=== PATIENT | female | born 1945 | race Caucasian/White ===

== ENCOUNTER 2023-03-09 15:34 | Emergency (ER) | payer MEDICARE, OTHER, SELFPAY ==
[2023-03-09 15:46] VITALS: BP 153/98
[2023-03-09 15:48] VITALS: BP 153/98
[2023-03-09 16:00] VITALS: BP 121/85
[2023-03-09 16:02] VITALS: BMI 36.2
[2023-03-09 16:34] LABS: % Basophils 0.2 % (0-2); % Immature Granulocytes 0.6 % (0-0.5); % Lymphocytes 15.5 % (20.5-51.1); % Neutrophils 74.7 % (42.2-75.2); Absolute Eosinophils 0.1 10^3/uL (0-0.7); Absolute Lymphocytes 0.8 10^3/uL (1.2-3.4); Absolute Monocytes 0.4 10^3/uL (0.1-0.6); Absolute Neutrophils 3.7 10^3/uL (1.4-6.5); Hemoglobin 11.2 g/dL (12.0-16.0); Mean Corpuscular Hgb 31.3 pg (27.0-31.0); Mean Corpuscular Volume 89.4 fL (81.0-99.0); Mean Platelet Volume 10.2 fL (7.4-10.4); Nucleated Red Blood Cells % 0 %; Platelet Count 199 10^3/uL (130-400); Red Blood Cell Count 3.58 10^6/uL (4.20-5.40); Red Cell Dist. Width 14.6 % (11.5-14.5)
--- NOTE | 2023-03-09 16:42 | ED.GENMED ---
History of Present Illness
General
Chief Complaint: Heart Rate Problem
Source: patient
Exam Limitations: none
Time Seen by Provider: 03/09/23 16:22
Nursing documentation reviewed up to this point in time: agreed with
Travel History
Have you had any contact with someone who has COVID-19?: No
Do you have any symptoms of coronavirus? Fever > 100 degrees, chills, cough, shortness of breath, sore throat, loss of taste or smell, muscle aches, or headache?: No
History of Present Illness
History of Present Illness:
77 yo female presents to the emergency department complaining of rapid heart rate that began about an hour prior to arrival during dialysis. She states Cardizem usually gets her out of the rapid atrial fibrillation. She takes Eliquis.
Past History
Past History
ED Past Medical History: Arrthythmia, CAD, HTN, Hypercholesterolemia, NIDDM, Renal failure and Psychiatric (anxiety)
ED Past Surgical History: Cardiac and Gynecological
Patient has exhibited threatening behavior?: No
PSI?: No
Social History
Tobacco: Former smoker
Alcohol: None
Drug: None
Personal:
Living: with family
Review of Systems
Review of Systems
Allergies reviewed?: Yes
All Other Systems: Not applicable
Constitutional: Reports no symptoms
EENT: Reports no symptoms
Respiratory: Reports no symptoms
Cardiac: Reports palpitations
ABD/GI: Reports no symptoms
: Reports no symptoms
Musculoskeletal: Reports no symptoms
Skin: Reports no symptoms
Neurological: Reports no symptoms
Endocrine: Reports no symptoms
Hematologic/Lymphatic: Reports no symptoms
Psychiatric: Reports no symptoms
Phy Exam
Physical Exam
Physical Exam:
Physical Exam
General: no apparent distress, not acutely ill
Neck: supple. no meningeal signs. normal posterior pharynx
Heart: s1/s2 tachycardia, no murmur. equal radial
pulses.
HEENT: Pupils equal round reactive to light, EOMI
Lungs: no acute respiratory distress. clear bilaterally
Abdomen: normal bowel sounds. not tender. no CVAT
Neuro: alert and oriented. no focal neurological deficits cranial nerves II through XII intact
Skin: no rash
Psychiatric: well kept. interactive and cooperative
Extremities: no edema. no calf tenderness. negative homans. good distal pulses, dialysis fistula left arm
Course
Orders/Labs/Results
Orders:
Orders
03/09/23 15:40
Electrocardiogram (*1) Urgent
Reason for Study: Atrial Fibrillation
03/09/23 16:07
Complete Blood Count/With Diff Urgent
Comprehensive Metabolic Panel Urgent
03/09/23 16:34
Diltiazem 125 mg/125 ml Nss [Cardizem] 125 mg in 125 ml IV NOW
Initial dose in mg/hr, then titrate:: 5
Titrate to keep:: Heart rate 80-100 bpm
Titrate by mg/hr:: 5 mg/hr
Frequency of titrations (minutes):: 15
Maximum dose in mg/hr:: 15
Diltiazem HCl [Cardizem] 5 mg IV NOW STA
03/09/23 16:44
Electrocardiogram (*1) Stat
Reason for Study: Atrial Fibrillation
Electrocardiogram (*1) Urgent
EKG- Treatment ONCE
03/09/23 16:45
Electrocardiogram (*1) Urgent
Reason for Study: Atrial Fibrillation
03/09/23 16:46
EKG- Treatment ONCE
Abnormal Lab Results
03/09/23
16:07
RBC 3.58 L 10^6/uL
(4.20-5.40)
Hgb 11.2 L g/dL
(12.0-16.0)
Hct 32.0 L %
(37.0-47.0)
MCH 31.3 H pg
(27.0-31.0)
RDW 14.6 H %
(11.5-14.5)
Absolute Lymphs (auto) 0.8 L 10^3/uL
(1.2-3.4)
Immature Gran % 0.6 H %
(0-0.5)
Lymphocytes % 15.5 L %
(20.5-51.1)
Sodium 134 L mmol/L
(135-145)
Chloride 91 L mmol/L
(98-107)
Carbon Dioxide 32 H mmol/L
(22-30)
BUN 22 H mg/dl
(7-17)
Creatinine 4.1 H* mg/dL
(0.6-1.0)
Glucose 218 H mg/dl
(70-99)
Total Bilirubin 1.6 H mg/dl
(0.2-1.3)
03/09/23 16:07
03/09/23 16:07
Vital Signs
Initial and Last Documented VS:
Initial Vital Signs
Pulse Resp Pulse Ox
127 16 97
03/09/23 15:45 03/09/23 15:45 03/09/23 15:45
Last Documented Vital Signs
Temp Pulse Resp BP Pulse Ox
98.7 F 81 14 121/85 97
03/09/23 15:48 03/09/23 16:45 03/09/23 16:45 03/09/23 16:00 03/09/23 16:45
MDM/Problems Addressed
Differential Diagnosis Includes:
Rapid atrial fibrillation
MDM/Problems Addressed:
77-year-old female with paroxysmal atrial fibrillation, spontaneously converted in the ED.
Chronic conditions affecting care: Arrhythmia
Acute Exacerbation and/or Progression of Chronic Illness: Arrhythmia
*Pulse Oximetry
Patient hypoxic: no
*EKG
Interpreted by ED Provider?: Yes
EKG Intrepretation Date: 03/09/23
EKG Intrepretation Time: 15:27
Interpretation: abnormal
Comparison EKG: changes noted
Heart Rate: 122
Rate: tachycardiac
Rhythm: a-fib
[place]: normal axis
Interval: normal interval
QRS Pattern: normal QRS
Ischemia: no ischemia
*Merchandise Flow Associate Interpretation
Rate: normal
Interpretation: normal
Heart Rate: 82
Rhythm: sinus
*Critical Care Note
Total Time (30-74mins, 75-104mins- exclusive of procedures): Not Applicable
Data Reviewed
Prescriptions/Medications Considered But Not Given:
Diltiazem ordered, but stopped as patient converted to sinus rhythm.
Patient Management
Social determinants of health affecting care: Strong social support
Escalation/DeEscalation of care consider admission/obs:
Admit not indicated
ED Attending Note
-
Portions of this chart may have been created with voice recognition software.� Occasional wrong word or��sound alike� substitutions may have occurred due to the inherent limitations of voice recognition software.
Discharge Plan
Departure
Patient Disposition: Home (Routine Discharge)
Date of Disposition: 03/09/23
Time of Disposition: 16:58
Patient with high blood pressure during this ER visit?: Yes
Condition: Good
Discharge Problem:
Paroxysmal A-fib, ESRD (end stage renal disease)
Instructions: Atrial Fibrillation (DC), BLOOD PRESSURE
Prescriptions:
No Action
lorazepam 1 MG tablet
1 mg PO DAILY
Patient Comments:
03/09/2023: last filled 03/09/23, 90 tabs for 90 days from [facility]
pantoprazole 40 MG tablet,delayed release (DR/EC)
40 mg PO DAILY
atorvastatin 80 mg Tablet
80 mg PO DAILY@1600 30 Days Qty: 30 0RF
Probiotic 3 billion cell Capsule
3,000 mmu cells PO DAILY
Levemir FlexPen 100 unit/mL (3 mL) Insulin Pen
10 unit SC HS
Patient Comments:
03/09/2023: Pt has had trouble taking her blood sugars and using the insulin pen.
bumetanide 1 mg Tablet
1 mg PO DAILY
sevelamer HCl 800 mg Tablet
800 mg PO MEALS
Eliquis 5 mg Tablet
5 mg PO BID Qty: 60 0RF
hydrocodone-acetaminophen 5-325 mg tablet
1 tab PO Q6H PRN (Reason: moderate pain)
Patient Comments:
03/09/2023: last filled 03/09/23, 30 tabs for 8 days from [facility]
carvedilol 6.25 mg tablet
6.25 mg PO BID
cholecalciferol (vitamin D3) [Vitamin D3] 50 mcg (2,000 unit) Tablet
50 mcg PO DAILY
Referrals:
Miki Mclaughlin MD [Active] - Call in 1-3 days for appt
UNKNOWN - PT DOES,NOT KNOW [Unknown Provider] -
Interventions
Interventions:
*Risk Screen - Suicide Last Done: 03/09/23 15:48
*General Assessment Last Done: 03/09/23 15:48
*Neglect/Abuse Screening Last Done: 03/09/23 16:02
*ED COVID-19 Vaccine History Last Done: 03/09/23 16:03
ED- Cardiac Assessment Last Done: 03/09/23 16:04
ED- Pulmonary Assessment Last Done: 03/09/23 16:04
[2023-03-09 16:46] LABS: ALT (SGPT) 27 U/L (0-35); AST (SGOT) 24 U/L (14-36); Albumin 3.9 g/dl (3.5-5.0); Alkaline Phosphatase 104 U/L (38-126); Blood Urea Nitrogen 22 mg/dl (7-17); Calcium 9.7 mg/dl (8.4-10.2); Carbon Dioxide 32 mmol/L (22-30); Chloride 91 mmol/L (98-107); Estimated Creatinine Clearance 13 ml/min; Glucose 218 mg/dl (70-99); Potassium 4.1 mmol/L (3.5-5.1); Sodium 134 mmol/L (135-145); Total Bilirubin 1.6 mg/dl (0.2-1.3); eGFR 10.74
[2023-03-09 17:00] VITALS: BP 129/57
== END 2023-03-09 17:54 | disposition home or self-care (01) ==
LOC: EMR 15:34
PROVIDERS: EMERGENCY PHYSICIAN Emergency Medicine; FAMILY PHYSICIAN Nurse Practitioner Primary Care
DX: I48.0 Paroxysmal atrial fibrillation (principal); N18.6 End stage renal disease; I12.0 Hypertensive chronic kidney disease with stage 5 chronic kidney disease or end stage renal disease; Z87.891 Personal history of nicotine dependence
CPT/HCPCS: 99284; 80053; 85025; 93005

== ENCOUNTER 2023-03-22 00:55 | Emergency (ER) | payer MEDICARE, OTHER, SELFPAY ==
[2023-03-22 01:00] VITALS: BMI 37.9
[2023-03-22 01:01] VITALS: BP 206/136
[2023-03-22 01:02] VITALS: BP 205/87
[2023-03-22 01:08] VITALS: BP 159/65
[2023-03-22 01:11] LABS: % Eosinophils 3.6 % (0-6); % Immature Granulocytes 0.6 % (0-0.5); % Lymphocytes 22.5 % (20.5-51.1); % Monocytes 7.8 % (1.7-9.3); % Neutrophils 64.5 % (42.2-75.2); Absolute Basophils 0.1 10^3/uL (0-0.2); Absolute Eosinophils 0.2 10^3/uL (0-0.7); Absolute Lymphocytes 1.2 10^3/uL (1.2-3.4); Absolute Monocytes 0.4 10^3/uL (0.1-0.6); Absolute Neutrophils 3.4 10^3/uL (1.4-6.5); Hematocrit 30.7 % (37.0-47.0); Mean Corp Hgb Conc. 35.8 g/dL (33.0-37.0); Mean Corpuscular Hgb 31.5 pg (27.0-31.0); Mean Platelet Volume 10.8 fL (7.4-10.4); Nucleated Red Blood Cells % 0 %; Platelet Count 187 10^3/uL (130-400); Red Blood Cell Count 3.49 10^6/uL (4.20-5.40); Red Cell Dist. Width 15.1 % (11.5-14.5); White Blood Cell Count 5.2 10^3/uL (4.8-10.8)
[2023-03-22 01:12] LABS: Glucose - Point of Care 456 mg/dl (70-99)
[2023-03-22 01:40] LABS: Troponin I 0.019 ng/ml
[2023-03-22 01:42] LABS: ALT (SGPT) 19 U/L (0-35); AST (SGOT) 24 U/L (14-36); Albumin 3.8 g/dl (3.5-5.0); Alkaline Phosphatase 189 U/L (38-126); Blood Urea Nitrogen 27 mg/dl (7-17); Carbon Dioxide 31 mmol/L (22-30); Chloride 94 mmol/L (98-107); Estimated Creatinine Clearance 12 ml/min; Glucose 449 mg/dl (70-99); Potassium 4.2 mmol/L (3.5-5.1); Sodium 132 mmol/L (135-145); Total Bilirubin 1.1 mg/dl (0.2-1.3); eGFR 9.12
[2023-03-22] MEDS: CARDIZEM 125 IV (01:47)
[2023-03-22] MEDS: CARDIZEM 10 MG IV (01:47)
--- NOTE | 2023-03-22 01:49 | ED.GENMED ---
History of Present Illness
General
Chief Complaint: Heart Rate Problem
Source: patient, records and family
Exam Limitations: none
Time Seen by Provider: 03/22/23 01:31
Nursing documentation reviewed up to this point in time: agreed with
Travel History
Have you had any contact with someone who has COVID-19?: No
Do you have any symptoms of coronavirus? Fever > 100 degrees, chills, cough, shortness of breath, sore throat, loss of taste or smell, muscle aches, or headache?: No
History of Present Illness
History of Present Illness:
77-year-old female diabetic A-fib ESRD followed by Dr. Tellez/Alice
Had dialysis today went into A-fib a few hours ago similar in the past, has not been taking her insulin and states she is waiting for her meter to come from Medicare, no fever chills no chest pain does feel fluttering in her chest has refused
cardioversion in the past has been compliant with her Eliquis
Past History
Past History
ED Past Medical History: Arrthythmia, CAD, HTN, Hypercholesterolemia, NIDDM, Renal failure and Psychiatric (anxiety)
ED Past Surgical History: Cardiac and Gynecological
Patient has exhibited threatening behavior?: No
PSI?: No
Social History
Tobacco: Former smoker
Alcohol: None
Drug: None
Personal:
Living: with family
Employment: Not employed
Review of Systems
Review of Systems
All Other Systems: Not applicable
Constitutional: Denies fever or fatigue
EENT: Reports no symptoms
Respiratory: Denies cough or trouble breathing
Cardiac: Reports palpitations
ABD/GI: Reports no symptoms
Musculoskeletal: Reports no symptoms
Hematologic/Lymphatic: Reports no symptoms
Phy Exam
Physical Exam
Physical Exam:
Physical Exam
General: Chronically ill female no acute distress
Neck: No jaundice
Heart: Irregular and rapid
Lungs: No crackles no respiratory
Neuro: alert and oriented. no focal neurological deficits
Skin: no rash
Psychiatric: well kept. interactive and cooperative
Extremities: no edema.
Course
Orders/Labs/Results
Orders:
Orders
03/22/23 00:57
Electrocardiogram (*1) Urgent
Reason for Study: Bradycardia / Tachycardia
Cardiac Monitoring- Treatment ONCE
EKG- Treatment ONCE
03/22/23 00:59
CMP [Comprehensive Metabolic Panel] Urgent
Complete Blood Count/With Diff Urgent
Troponin I Urgent
03/22/23 01:37
Diltiazem HCl [Cardizem] 15 mg IV NOW STA
03/22/23 01:45
Diltiazem 125 mg/125 ml Nss [Cardizem] 125 mg in 125 ml IV PER PROTOCOL
Initial dose in mg/hr, then titrate:: 5
Titrate to keep:: Heart rate 80-100 bpm
Titrate by mg/hr:: 5 mg/hr
Frequency of titrations (minutes):: 15
Maximum dose in mg/hr:: 15
03/22/23 01:56
Apixaban [Eliquis] 5 mg PO NOW STA
03/22/23 02:19
Insulin Detemir Levemir [Levemir] 10 units Subcutaneous Insulin Syringe [Syringe-Insulin] 0 unit SC ONCE
Abnormal Lab Results
03/22/23 03/22/23
00:59 01:05
RBC 3.49 L 10^6/uL
(4.20-5.40)
Hgb 11.0 L g/dL
(12.0-16.0)
Hct 30.7 L %
(37.0-47.0)
MCH 31.5 H pg
(27.0-31.0)
RDW 15.1 H %
(11.5-14.5)
MPV 10.8 H fL
(7.4-10.4)
Immature Gran % 0.6 H %
(0-0.5)
Sodium 132 L mmol/L
(135-145)
Chloride 94 L mmol/L
(98-107)
Carbon Dioxide 31 H mmol/L
(22-30)
BUN 27 H mg/dl
(7-17)
Creatinine 4.7 H* mg/dL
(0.6-1.0)
Glucose 449 H mg/dl
(70-99)
Alkaline Phosphatase 189 H U/L
(38-126)
POC Glucose 456 H* mg/dl
(70-99)
03/22/23 00:59
03/22/23 00:59
Vital Signs
Initial and Last Documented VS:
Initial Vital Signs
Pulse Resp
150 20
03/22/23 01:00 03/22/23 01:00
Last Documented Vital Signs
Pulse Resp BP Pulse Ox
130 16 159/65 93
03/22/23 01:47 03/22/23 01:45 03/22/23 01:47 03/22/23 01:45
MDM/Problems Addressed
Differential Diagnosis Includes:
A-fib electrolyte abnormality no signs of heart failure noncompliant with insulin regimen
MDM/Problems Addressed:
Rapid A-fib hyperglycemia
Chronic conditions affecting care: DM, Arrhythmia and Kidney disease
Acute Exacerbation and/or Progression of Chronic Illness: DM, Arrhythmia and Kidney disease
*Pulse Oximetry
Patient hypoxic: no
*EKG
Interpreted by ED Provider?: Yes
Interpretation: abnormal
Comparison EKG: changes noted
Heart Rate: 150
Rate: tachycardiac
Rhythm: a-fib
Ischemia: non-specific ST changes
*Brake Adjuster Interpretation
Rate: tachycardiac
Interpretation: abnormal
Heart Rate: 150
Rhythm: a-fib
*Critical Care Note
Total Time (30-74mins, 75-104mins- exclusive of procedures): 30
Data Reviewed
Review of Other/Old Records Reveals: Labs and Records
Source: patient, records and spouse
Prescriptions/Medications Considered But Not Given:
DC cardioversion
Further Testing Considered But Not Given:
cxr
Update Note
Update Note:
Update 2:15 AM patient is in A-fib with a rapid ventricular response, claims she has been compliant with her Eliquis, refused cardioversion, though I am suspicious over compliance, blood sugars elevated, states she is prescribed 10 units of Levemir
states she will take she needs to follow-up with her PCP,
In summary I strongly recommended admission to get all these issues worked out she has refused which apparently she has previously
ED Attending Note
-
Portions of this chart may have been created with voice recognition software.� Occasional wrong word or��sound alike� substitutions may have occurred due to the inherent limitations of voice recognition software.
Discharge Plan
Departure
Patient Disposition: Home (Routine Discharge)
Date of Disposition: 03/22/23
Time of Disposition: 02:23
Patient with high blood pressure during this ER visit?: No
Condition: Fair
Discharge Problem:
ESRD (end stage renal disease), Hypertensive chronic kidney disease with stage 5 chronic kidney disease or end stage renal disease, Atrial fibrillation with RVR, Hyperglycemia
Instructions: Atrial Fibrillation (DC), Blood Glucose Monitoring, Diabetes Type 1, Adult (DC)
Prescriptions:
No Action
lorazepam 1 MG tablet
1 mg PO DAILY
Patient Comments:
03/09/2023: last filled 03/09/23, 90 tabs for 90 days from [facility]
pantoprazole 40 MG tablet,delayed release (DR/EC)
40 mg PO DAILY
atorvastatin 80 mg Tablet
80 mg PO DAILY@1600 30 Days Qty: 30 0RF
Probiotic 3 billion cell Capsule
3,000 mmu cells PO DAILY
Levemir FlexPen 100 unit/mL (3 mL) Insulin Pen
10 unit SC HS
Patient Comments:
03/09/2023: Pt has had trouble taking her blood sugars and using the insulin pen.
Rx Instructions:
hasnt used in 3 months
bumetanide 1 mg Tablet
1 mg PO DAILY
sevelamer HCl 800 mg Tablet
800 mg PO MEALS
Eliquis 5 mg Tablet
5 mg PO BID Qty: 60 0RF
hydrocodone-acetaminophen 5-325 mg tablet
1 tab PO Q6H PRN (Reason: moderate pain)
Patient Comments:
03/09/2023: last filled 03/09/23, 30 tabs for 8 days from [facility]
carvedilol 6.25 mg tablet
6.25 mg PO BID
cholecalciferol (vitamin D3) [Vitamin D3] 50 mcg (2,000 unit) Tablet
50 mcg PO DAILY
aspirin 81 mg Tablet
81 mg PO DAILY
Referrals:
Marie Balbuena CRNP [Family Provider] -
Activity Restrictions/Additional Instructions:
Follow-up with your outpatient physicians you are welcome return to the ER at any time
Interventions
Interventions:
*General Assessment Last Done: 03/22/23 01:00
*Neglect/Abuse Screening Last Done: 03/22/23 01:00
*ED COVID-19 Vaccine History Last Done: 03/22/23 01:00
[2023-03-22 02:00] VITALS: BP 107/68
[2023-03-22 02:30] VITALS: BP 141/70
[2023-03-22] MEDS: ELIQUIS 5 MG PO (02:31)
--- NOTE | 2023-03-22 02:37 | EDRN ---
Patients heart rate is still elevated, patient does not want to be admitted to the hospital, Dr. Crow did talk to her about staying and her heart rate and blood sugar level, patient agreed to take insulin before she goes.
[2023-03-22] MEDS: LEVEMIR 0.100000000000000006 UNITS SC (02:39)
== END 2023-03-22 02:30 | disposition home or self-care (01) ==
LOC: EMR 00:55
PROVIDERS: Emergency Medicine; EMERGENCY PHYSICIAN Emergency Medicine; FAMILY PHYSICIAN Nurse Practitioner Primary Care
DX: N18.6 End stage renal disease (principal); I12.0 Hypertensive chronic kidney disease with stage 5 chronic kidney disease or end stage renal disease; I48.91 Unspecified atrial fibrillation; E11.65 Type 2 diabetes mellitus with hyperglycemia; E11.22 Type 2 diabetes mellitus with diabetic chronic kidney disease; Z87.891 Personal history of nicotine dependence
CPT/HCPCS: 99291; 96374; 96372; 80053; 82962; 84484; 85025; 93005

== ENCOUNTER 2023-05-13 17:38 | Inpatient (IN) | payer MEDICARE, OTHER, SELFPAY ==
[2023-05-13] VITALS (11 sets, daily range): BP systolic 102–201; BP diastolic 46–84; PULSE 66–77; BMI 37.5; BMI 36.4
[2023-05-13 12:23] LABS: Glucose - Point of Care 318 mg/dl (70-99)
[2023-05-13 12:40] LABS: % Basophils 0.6 % (0-2); % Eosinophils 1.1 % (0-6); % Immature Granulocytes 0.5 % (0-0.5); % Lymphocytes 14.4 % (20.5-51.1); % Neutrophils 76.4 % (42.2-75.2); Absolute Eosinophils 0.1 10^3/uL (0-0.7); Absolute Lymphocytes 0.9 10^3/uL (1.2-3.4); Absolute Monocytes 0.4 10^3/uL (0.1-0.6); Absolute Neutrophils 4.7 10^3/uL (1.4-6.5); Hematocrit 32.9 % (37.0-47.0); Hemoglobin 11.5 g/dL (12.0-16.0); Mean Corpuscular Hgb 30.9 pg (27.0-31.0); Mean Corpuscular Volume 88.4 fL (81.0-99.0); Mean Platelet Volume 10.2 fL (7.4-10.4); Nucleated Red Blood Cells % 0 %; Platelet Count 191 10^3/uL (130-400); Red Blood Cell Count 3.72 10^6/uL (4.20-5.40); Red Cell Dist. Width 14.5 % (11.5-14.5); White Blood Cell Count 6.2 10^3/uL (4.8-10.8)
[2023-05-13 13:28] LABS: ALT (SGPT) 17 U/L (0-35); AST (SGOT) 21 U/L (14-36); Albumin 4.4 g/dl (3.5-5.0); Alkaline Phosphatase 97 U/L (38-126); Blood Urea Nitrogen 52 mg/dl (7-17); Calcium 10.2 mg/dl (8.4-10.2); Carbon Dioxide 28 mmol/L (22-30); Chloride 90 mmol/L (98-107); Estimated Creatinine Clearance 6 ml/min; Glucose 290 mg/dl (70-99); Magnesium 1.7 mg/dl (1.6-2.3); Potassium 5.6 mmol/L (3.5-5.1); Sodium 130 mmol/L (135-145); Total Bilirubin 1.5 mg/dl (0.2-1.3); Total Protein 7.6 g/dl (6.3-8.2); eGFR 4.35
--- NOTE | 2023-05-13 13:41 | ED.GENMED ---
History of Present Illness
General
Chief Complaint: Weakness
Source: patient
Exam Limitations: none
Time Seen by Provider: 05/13/23 12:37
Nursing documentation reviewed up to this point in time: agreed with
Travel History
Have you had any contact with someone who has COVID-19?: No
Do you have any symptoms of coronavirus? Fever > 100 degrees, chills, cough, shortness of breath, sore throat, loss of taste or smell, muscle aches, or headache?: No
History of Present Illness
History of Present Illness:
Patient with history of end-stage renal disease on hemodialysis (Tuesday, Tuesday, Tuesday), atrial fibrillation on Eliquis, presents to ED secondary to multiple episodes of generalized weakness, which caused her to slump to the ground over the past
24 hours. Denies loss of consciousness. Denies headache. Denies blurred vision. Denies loss of sensation. Denies chest pain or palpitations. Denies recent illness. Denies recent change in medications or diet. Secondary to her fall this
morning, patient did not receive her dialysis. However, patient denies weight gain or shortness of breath. Patient received full dialysis session 2 days ago. Of note, patient states that she had similar symptoms 2 years ago when she was evaluated
and was given diagnosis of TIA.
Past History
Past History
ED Past Medical History: Arrthythmia, CAD, HTN, Hypercholesterolemia, NIDDM, Renal failure and Psychiatric (anxiety)
ED Past Surgical History: Cardiac and Gynecological
Patient has exhibited threatening behavior?: No
PSI?: No
Social History
Tobacco: Former smoker
Alcohol: None
Drug: None
Personal:
Living: with family
Employment: Not employed
Review of Systems
Review of Systems
Allergies reviewed?: Yes
All Other Systems: ROS reviewed and negative except as documented in HPI and ROS
Constitutional: Reports no symptoms
EENT: Reports no symptoms
Respiratory: Reports no symptoms
Cardiac: Reports no symptoms
ABD/GI: Reports no symptoms
: Reports no symptoms
Musculoskeletal: Reports no symptoms
Skin: Reports no symptoms
Neurological: Reports weakness
Phy Exam
Physical Exam
Physical Exam:
Physical Exam
General: no apparent distress, not acutely ill. afebrile
Head: nc/at. eomi
Neck: supple. normal range of motion.
Heart: s1/s2 regular rate and rhythm, no murmur. equal radial pulses.
Lungs: no acute respiratory distress. clear bilaterally
Abdomen: normal bowel sounds. not tender.
Neuro: alert and oriented. no focal neurological deficits. normal speech.
Skin: no rash
Psychiatric: well kept. interactive and cooperative
Extremities: no edema. no calf tenderness.
Course
Orders/Labs/Results
Orders:
Orders
05/13/23 12:16
Electrocardiogram (*1) Urgent
Reason for Study: Fatigue / Weakness
05/13/23 12:20
CT Head W/o Iv Contrast Urgent
Comment:
Reason For Exam: weakness, multiple falls
05/13/23 12:26
CMP [Comprehensive Metabolic Panel] Urgent
Complete Blood Count/With Diff Urgent
Magnesium Urgent
05/13/23 12:45
Add On- LAB Urgent
Tests Added?: magnesium
05/13/23 13:07
Troponin I Urgent
05/13/23 13:36
Orthostatic VS- Treatment ONCE
05/13/23 14:01
Carotid US [US Cerebrovascular] Urgent
Comment:
Reason For Exam: weakness/slurred speech
05/13/23 Dinner
Potassium, 2 Gram
At Your Request: Full Participation
05/13/23 17:23
Admit/Transfer Patient As Directed
Co-Sign Provider:
Level of Care: Inpatient admission
Assign to:: Telemetry
Physician / Group: jennifer
Diagnosis: altered mental status/ambulatory dysfunction
Reason for Telemetry: Arrhythmia
Date to Stop Telemetry: 05/16/23
Time to Stop Telemetry: 11:00
Reason for Hospitalization: altered mental status/ambulatory dysfunction
Expected length of stay greater than two midnights?: Yes
ELOS- Estimated Length of Stay in days: 2
I certify the patient meets the requirements for IP care: Yes
05/13/23 17:24
Code Status As Directed
Resuscitation Status: Full Code
05/13/23 17:27
HydrALAZINE [Apresoline] 5 mg IV Q6HPRN PRN
05/13/23 19:44
Atorvastatin [Lipitor] 80 mg PO QPM
Dextrose 50%-Water [Dextrose 50% Syringe] 12.5 grams IV [id number] PRN
Glucagon [GlucaGen] 1 mg IM PRN PRN
Sevelamer Carbonate [Renvela] 800 mg PO MEALS
05/13/23 19:44
VTE Contraindication Routine
VTE Mechanical Device Contraindication: Medical Contraindication
Pharmocologic Contraindication: Medical Contraindication
Activity As Directed
Activity Level: As Tolerated
Bedside Glucose Monitoring As Directed
Frequency: AC&HS
Comment: Change to q6h if pt on TPN, tube feeding or not eating
Vital Signs As Directed
Frequency: Per unit guidelines
05/13/23 20:00
Apixaban [Eliquis] 5 mg PO BID
Carvedilol [Coreg] 6.25 mg PO BID
05/13/23 22:00
insulin detemir U-100 [Levemir FlexPen] 20 unit SC HS
05/14/23 07:30
Insulin Aspart Corrective Low [Novolog Flexpen-Low Resistance] See Protocol SC AC
05/14/23 07:32
Complete Blood Count/With Diff IN AM
Comprehensive Metabolic Panel IN AM
Glycohemoglobin (HgbA1c) IN AM
05/14/23 08:00
Bumetanide [Bumex] 1 mg PO DAILY
Cholecalciferol (Vitamin D3) [VITAMIN D3 (cholecalciferol)] 50 mcg PO DAILY
Lactobac/Bifidobac [Visbiome] 1 cap PO DAILY
Pantoprazole [Protonix] 40 mg PO DAILY
05/16/23 11:00
DC Protocol for Telemetry ONCE
Abnormal Lab Results
05/13/23 05/13/23
12:16 12:26
RBC 3.72 L 10^6/uL
(4.20-5.40)
Hgb 11.5 L g/dL
(12.0-16.0)
Hct 32.9 L %
(37.0-47.0)
Absolute Lymphs (auto) 0.9 L 10^3/uL
(1.2-3.4)
Neutrophils % 76.4 H %
(42.2-75.2)
Lymphocytes % 14.4 L %
(20.5-51.1)
Sodium 130 L mmol/L
(135-145)
Potassium 5.6 H mmol/L
(3.5-5.1)
Chloride 90 L mmol/L
(98-107)
BUN 52 H mg/dl
(7-17)
Creatinine 8.7 H* mg/dL
(0.6-1.0)
Glucose 290 H mg/dl
(70-99)
Total Bilirubin 1.5 H mg/dl
(0.2-1.3)
POC Glucose 318 H mg/dl
(70-99)
05/13/23 12:26
05/13/23 12:26
Vital Signs
Initial and Last Documented VS:
Initial Vital Signs
Temp Pulse Resp BP Pulse Ox
99.3 F 63 16 187/60 98
05/13/23 12:14 05/13/23 12:14 05/13/23 12:14 05/13/23 12:14 05/13/23 12:14
Last Documented Vital Signs
Temp Pulse Resp BP Pulse Ox
97.8 F 54 18 163/63 98
05/16/23 07:00 05/16/23 07:00 05/16/23 07:00 05/16/23 07:00 05/16/23 07:00
MDM/Problems Addressed
MDM/Problems Addressed:
Patient found to be unstable when standing up during orthostatic vital sign check. In light of the fact the patient has fallen multiple times over the past 24 hours along with mental status change noted by family, patient will be admitted for
further evaluation and treatment. In addition, patient with mildly elevated hyperkalemia, and will require dialysis.
Nephrology () notified via [facility].
*EKG
Interpreted by ED Provider?: Yes
EKG Intrepretation Date: 05/13/23
Heart Rate: 60
Rate: normal
Rhythm: sinus
[place]: normal axis
*Critical Care Note
Total Time (30-74mins, 75-104mins- exclusive of procedures): Not Applicable
ED Attending Note
-
Portions of this chart may have been created with voice recognition software.� Occasional wrong word or��sound alike� substitutions may have occurred due to the inherent limitations of voice recognition software.
Discharge Plan
Departure
Patient Disposition: Admit
Date of Disposition: 05/13/23
Time of Disposition: 16:46
Admit to: Telemetry
Presentation/result/management discussed w/ accepting MD/DO: Hospitalist
Discharge Problem:
Falls, ESRD (end stage renal disease), Weakness
Interventions
Interventions:
*Risk Screen - Suicide Last Done: 05/13/23 20:13
*General Assessment Last Done: 05/13/23 12:14
*Neglect/Abuse Screening Last Done: 05/13/23 19:39
ED- Fall Risk Assessment Last Done: 05/13/23 19:39
*ED COVID-19 Vaccine History Last Done: 05/13/23 12:14
*Nursing Disposition Last Done: 05/13/23 19:40
ED- Cardiac Assessment Last Done: 05/13/23 15:30
ED- Neurological Assessment Last Done: 05/13/23 15:30
ED- Pulmonary Assessment Last Done: 05/13/23 15:30
Discharge Date and Time
Discharge Date/Time: 05/13/23 19:41
[2023-05-13 13:42] LABS: Troponin I < 0.012 ng/ml
--- NOTE | 2023-05-13 17:28 | HPS.HSE ---
Family Physician
-
Family Physician: Marie Balbuena
Chief Complaint
-
weakness
History of Present Illness
77-year-old female past medical history of ESRD on hemodialysis Tuesday, Tuesday, Tuesday, atrial fibrillation on Eliquis, CAD with stents, anemia of chronic disease, type 2 diabetes, hypertension, hyperlipidemia, sarcoidosis, probable cirrhosis,
anxiety, GERD, presenting with multiple falls since yesterday. She has been feeling generally weak and has been falling off the bed and falling off her wheelchair. Today while trying to get into wheelchair to go to dialysis she fell and therefore
was unable to get to dialysis. Daughters have also noticed that patient has been having some altered mental status and expressions are a bit unusual. 2 days ago she had an episode of visually hallucinating a pot of ocasio. Did have some nausea
earlier. No fevers or chills, cough, shortness of breath or chest pain. No vomiting or abdominal pain or diarrhea or urinary symptoms. No headache. She has chronic blurred vision. No recent changes to medications. Patient had a similar episode
2 years ago and was evaluated and diagnosed with TIA prior to being on Eliquis.
Patient has chronic weakness of the left upper extremity due to the AV fistula status post bypass. She has some chronic tingling in her left hand which is stable. Did notice that patient's been more weak in the left hand over the past few days.
Daughter is also noted some intermittent slurring of speech today.
She does not smoke or drink alcohol.
Patient last received full dialysis 2 days ago.
Medical History
Past Medical History
Past Medical History: Reports Other (ESRD on hemodialysis Tuesday, Tuesday, Tuesday, atrial fibrillation on Eliquis, CAD with stents, anemia of chronic disease, type 2 diabetes, hypertension, hyperlipidemia, sarcoidosis, probable cirrhosis, anxiety,
GERD)
Past Surgical History: Reports None
Social History
Tobacco: Non-smoker
Alcohol: None
Drug: None
Family History
Family History: Not pertinent
Allergies / Home Medications
Allergies reflects when Allergies were last updated in [employer].
Home Medications with original date entered in [employer]
Allergy/Medication List:
Allergies
Allergy/AdvReac Type Severity Reaction Status Date / Time
Iodinated Contrast Media Allergy Hives/RASH Verified 05/13/23 12:19
[Iodinated Contrast- Oral
and IV Dye]
Home Medications
lorazepam 1 mg tablet 1 mg PO DAILY anxiety 07/27/21
pantoprazole 40 mg tablet,delayed release 40 mg PO DAILY Gastrointestinal issue 07/27/21
bumetanide 1 mg tablet 1 mg PO DAILY Fluid Retention/Swelling 07/01/22
insulin detemir U-100 100 unit/mL (3 mL) subcutaneous pen (Levemir FlexPen) 20 unit SC HS Diabetes 07/01/22
lactobacillus combination no.4 3 billion cell capsule (Probiotic) 3,000 mmu cells PO DAILY Gastrointestinal Issue 07/01/22
sevelamer HCl 800 mg tablet 800 mg PO MEALS Kidney Disease 07/30/22
apixaban 5 mg tablet (Eliquis) 5 mg PO BID #60 tabs 08/16/22
carvedilol 6.25 mg tablet 6.25 mg PO BID 03/09/23
cholecalciferol (vitamin D3) 50 mcg (2,000 unit) tablet (Vitamin D3) 50 mcg PO DAILY 03/09/23
atorvastatin 80 mg tablet 80 mg PO QPM 05/13/23
gabapentin 100 mg capsule 100 mg PO TID 05/13/23
Review of Systems
-
History Source: Patient
A 12 point ROS was completed and negative except as noted: Yes
Constitutional: Reports No Symptoms
EENT: Reports No Symptoms
Respiratory: Reports No Symptoms
Cardiac: Reports No Symptoms
Abdomen/GI: Reports No Symptoms
: Reports No Symptoms
Musculoskeletal: Reports No Symptoms
Skin: Reports No Symptoms
Neurological: Reports No Symptoms
Endocrine: Reports No Symptoms
Hematologic/Lymphatic: Reports No Symptoms
Psych: Reports No Symptoms
Physical Exam
Vital Signs
Vital Signs
Temp Pulse Resp BP Pulse Ox
99.3 F 60 12 201/65 99
05/13/23 12:14 05/13/23 13:00 05/13/23 13:00 05/13/23 13:00 05/13/23 13:00
Physical Exam
General: Well Developed, Well Nourished and No Apparent Distress
HEENT: NormoCephalic, Moist mucous membranes and Atraumatic
Respiratory: Clear
Cardiac: S1/S2 and Regular Rhythm; No Murmur or Rub
GI: Soft, Non Tender, Non Distended and Normal Bowel Sounds; No Organomegaly
Rectal: Deferred by Provider
Musculoskeletal: No Clubbing, No Cyanosis and No Edema
Skin: No Rash
Neuro: Nonfocal/grossly intact
Laboratory Results
-
05/13/23 12:26
05/13/23 12:26
Laboratory Results
Total Bilirubin 1.5 mg/dl (0.2-1.3) H 05/13/23 12:26
AST 21 U/L (14-36) 05/13/23 12:26
ALT 17 U/L (0-35) 05/13/23 12:26
Alkaline Phosphatase 97 U/L (38-126) 05/13/23 12:26
Troponin I < 0.012 ng/ml 05/13/23 13:07
Data Reviewed
-
Lab Data: Labs Reviewed by me
Old Records: Reviewed
Impression/Plan
-
IMPRESSION:
PLAN:
# Weakness altered mental status/falls suggestive of UTI, possible TIA/CVA
-No focal neurological deficits on examination apart from decreased strength of the left upper extremity which is likely chronic due to complications from fistula
-CT head shows no acute intracranial abnormality
-Carotid ultrasound shows less than 50% bilateral internal carotid artery stenosis
-Check urinalysis
-If urinalysis negative then check MRI brain
-Hold Ativan, gabapentin
# Hypertensive urgency secondary to missed dialysis session today
-As needed hydralazine
#ESRD on hemodialysis M, W, F
# Hyperkalemia secondary to missed dialysis
-Received dialysis 2 days ago
-Continue Bumex
-Continue sevelamer
-Nephrology consulted
Paroxysmal atrial fibrillation
-Continue Eliquis
CAD status post stents
-Continue Coreg
Anemia of chronic disease
-Hemoglobin stable
Hyperglycemia
Type 2 diabetes
-Continue Levemir 20 units
-Insulin sliding scale
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
-Hold gabapentin
Hyperlipidemia
-Continue statin
Sarcoidosis
Probable cirrhosis
Anxiety
-Hold Ativan
GERD
-Continue Protonix
History of small partially calcified right frontal convexity meningioma on imaging
Full code
DVT prophylaxis Eliquis
Renal diet
--- NOTE | 2023-05-13 17:43 | W.CON.NEPH ---
Consultation
-
Date/Time Consultation Requested: 05/13/2023 5:30 PM
Date/Time Consultation Performed: 05/13/2023 5:30 PM
Requesting Provider: Kay
Performing Provider: Nino
Reason for Consultation: ESRD
Medical History
-
Chief Complaint: End-stage renal disease
History of Present Illness:
Patient is a 77-year-old female with a past medical history of end-stage renal disease. She is maintained on dialysis every Tuesday and Tuesday at [facility]. She has a longstanding history of diabetes maintained on insulin
therapy. She is maintained on Eliquis in the setting of her atrial fibrillation. She presented to the emergency room with multiple falls since yesterday . She has been feeling generally weak and has been falling off the bed and falling off her
wheelchair. Today while trying to get into wheelchair to go to dialysis she fell and therefore was unable to get to dialysis. Daughters have also noticed that patient has been having some altered mental status and expressions are a bit unusual. 2
days ago she had an episode of visually hallucinating a pot of ocasio. Did have some nausea earlier. No fevers or chills, cough, shortness of breath or chest pain. No vomiting or abdominal pain or diarrhea or urinary symptoms. No headache. She
has chronic blurred vision. No recent changes to medications. Patient had a similar episode 2 years ago and was evaluated and diagnosed with TIA prior to being on Eliquis.
Patient has chronic weakness of the left upper extremity due to the AV fistula status post bypass. She has some chronic tingling in her left hand which is stable. Did notice that patient's been more weak in the left hand over the past few days.
Daughter is also noted some intermittent slurring of speech today.
Past Medical History
End-stage renal disease
Left upper extremity AV fistula
Diabetes
Hypertension
Hyperphosphatemia
Anemia
Atrial fibrillation
Coronary artery disease with prior stenting
Chronic liver disease
Anxiety
Social History
Tobacco: Non-Smoker
Alcohol: None
Family History
No chronic kidney disease
Allergies / Home Medications
Allergy/AdvReac Type Severity Reaction Status Date / Time
Iodinated Contrast Media Allergy Hives/RASH Verified 05/13/23 12:19
[Iodinated Contrast- Oral
and IV Dye]
�Medication �Instructions �Recorded �Confirmed �Type
lorazepam 1 mg tablet 1 mg PO DAILY anxiety 07/27/21 05/13/23 History
pantoprazole 40 mg tablet,delayed 40 mg PO DAILY Gastrointestinal 07/27/21 05/13/23 History
release issue
bumetanide 1 mg tablet 1 mg PO DAILY Fluid 07/01/22 05/13/23 History
Retention/Swelling
insulin detemir U-100 100 unit/mL 20 unit SC HS Diabetes 07/01/22 05/13/23 History
(3 mL) subcutaneous pen (Levemir
FlexPen)
lactobacillus combination no.4 3 3,000 mmu cells PO DAILY 07/01/22 05/13/23 History
billion cell capsule (Probiotic) Gastrointestinal Issue
sevelamer HCl 800 mg tablet 800 mg PO MEALS Kidney Disease 07/30/22 05/13/23 History
apixaban 5 mg tablet (Eliquis) 5 mg PO BID #60 tabs 08/16/22 05/13/23 Rx
carvedilol 6.25 mg tablet 6.25 mg PO BID 03/09/23 05/13/23 History
cholecalciferol (vitamin D3) 50 50 mcg PO DAILY 03/09/23 05/13/23 History
mcg (2,000 unit) tablet (Vitamin
D3)
atorvastatin 80 mg tablet 80 mg PO QPM 05/13/23 05/13/23 History
gabapentin 100 mg capsule 100 mg PO TID 05/13/23 05/13/23 History
Review of Systems
-
History Source: Patient
All other systems: Negative unless noted
Constitutional: Fatigue
Respiratory: No Symptoms
Cardiac: No Symptoms and Other (Left upper extremity AV fistula)
Abdomen/GI: No Symptoms
: No Symptoms and Other (Still makes urine)
Musculoskeletal: Other (Lower extremity leg weakness)
Skin: No Symptoms
Neurological: Numbness (And lower extremity baseline diabetic neuropathy) and Other (Noted slurring of words her daughter)
Endocrine: No Symptoms
Hematologic/Lymphatic: No Symptoms
Physical Exam
Vital Signs
Vital Signs
Temp Pulse Resp BP Pulse Ox
99.3 F 60 12 201/65 99
05/13/23 12:14 05/13/23 13:00 05/13/23 13:00 05/13/23 13:00 05/13/23 13:00
Lab Results
WBC 6.2 10^3/uL (4.8-10.8) 05/13/23 12:26
RBC 3.72 10^6/uL (4.20-5.40) L 05/13/23 12:26
Hgb 11.5 g/dL (12.0-16.0) L 05/13/23 12:26
Hct 32.9 % (37.0-47.0) L 05/13/23 12:26
Plt Count 191 10^3/uL (130-400) 05/13/23 12:26
Sodium 130 mmol/L (135-145) L 05/13/23 12:26
Potassium 5.6 mmol/L (3.5-5.1) H 05/13/23 12:26
Chloride 90 mmol/L (98-107) L 05/13/23 12:26
Carbon Dioxide 28 mmol/L (22-30) 05/13/23 12:26
BUN 52 mg/dl (7-17) H 05/13/23 12:26
Creatinine 8.7 mg/dL (0.6-1.0) H* 05/13/23 12:
eGFR 4.35 05/13/23 12:26
Glucose 290 mg/dl (70-99) H 05/13/23 12:26
Calcium 10.2 mg/dl (8.4-10.2) 05/13/23 12:
Albumin 4.4 g/dl (3.5-5.0) 05/13/23 12:26
Physical Exam
General: AOx3, No Distress and Nontoxic
HEENT: PERRL, EOMI, Anicteric, Conjunctivae Clear, Ear/Nose Intact, Hearing Normal, Oropharynx Clear/Moist, Facial Symmetry, Neck Supple, Trachea Midline and No Thyromegaly
Respiratory: Clear
Cardiac: S1/S2, Regular Rate/Rhythm and Other (Left upper extremity AV fistula in the antecubital fossa with good thrill and bruit)
Breast: Deferred by me
Abdomen: Soft, Nontender, Nondistended, Normal Bowel Sounds and No Hepatosplenomegaly
Genito-urinary: No Costovertebral Tender
Musculoskeletal: No Clubbing, No Cyanosis and No Edema
Skin: No Rash
Neuro: Nonfocal/Grossly Intact, CN II-XII (Intact), Strength (5 out of 5 in both upper and lower extremity) and Other (Decreased neurosensory in lower extremities along plantar aspects of feet)
Hematologic/Lymphatic: No Cervical Lymphadenopathy, No Submandibular Lymphadenopathy and No Supraclavicular Lymphadenopathy
Psych: Mood/afflect pleasant, Insight/judgement good and Appropriate
Assessment/Plan
-
Impression:
Change of mental status/falls
End-stage renal disease Tuesday
Hypertension
Left upper extremity AV
Coronary artery disease with prior history of stent
Hyperkalemia
Diabetes
Atrial fibrillation
Plan:
-Dialysis tomorrow, orders provided
-1500 cc fluid restriction low-sodium low potassium diet
-Workup for change in mental status should include infectious etiology with pancultures as well as possible need for MRI of head
-Maintain phosphate binders with meals for hyperphosphatemia
-SARAH therapy provided for anemia
-Maintain current antihypertensives and titrate as necessary for hypertension
-Will closely monitor hypertension as there could be concern for hypertensive encephalopathy
Data Reviewed
-
CT Scan: Report Reviewed by me (CAT scan reveals no acute intracranial abnormality)
Medical Tests (Nuc Med, Echo etc): Other (EKG personally reviewed sinus rhythm)
Labs: Labs Reviewed by me (Reviewed CBC BMP)
Old Records: Reviewed (Reviewed old records and electronic medical record from hospitalization in September 2022: nephrology consult for ESRD)
[2023-05-13 21:39] LABS: Glucose - Point of Care 269 mg/dl (70-99)
[2023-05-13] MEDS: LIPITOR 80 MG PO (23:23)
[2023-05-13] MEDS: ELIQUIS 5 MG PO (23:24)
[2023-05-13] MEDS: COREG 6.25 MG PO (23:24)
[2023-05-13] MEDS: LEVEMIR 0.200000000000000011 UNITS SC (23:25)
[2023-05-13] MEDS: RENVELA 800 MG PO (23:26)
[2023-05-14] VITALS (9 sets, daily range): BP systolic 105–185; BP diastolic 44–71; PULSE 59; BMI 36.8
[2023-05-14 07:55] LABS: Glucose - Point of Care 250 mg/dl (70-99)
[2023-05-14 08:09] LABS: % Basophils 0.4 % (0-2); % Eosinophils 2.5 % (0-6); % Immature Granulocytes 0.4 % (0-0.5); % Lymphocytes 21.4 % (20.5-51.1); % Neutrophils 66.3 % (42.2-75.2); Absolute Eosinophils 0.1 10^3/uL (0-0.7); Absolute Lymphocytes 1.1 10^3/uL (1.2-3.4); Absolute Monocytes 0.5 10^3/uL (0.1-0.6); Absolute Neutrophils 3.5 10^3/uL (1.4-6.5); Hematocrit 29.2 % (37.0-47.0); Hemoglobin 10.6 g/dL (12.0-16.0); Mean Corp Hgb Conc. 36.3 g/dL (33.0-37.0); Mean Corpuscular Hgb 31.5 pg (27.0-31.0); Mean Corpuscular Volume 86.9 fL (81.0-99.0); Mean Platelet Volume 10.1 fL (7.4-10.4); Nucleated Red Blood Cells % 0 %; Platelet Count 179 10^3/uL (130-400); Red Blood Cell Count 3.36 10^6/uL (4.20-5.40); Red Cell Dist. Width 14.4 % (11.5-14.5); White Blood Cell Count 5.2 10^3/uL (4.8-10.8)
[2023-05-14 08:32] LABS: ALT (SGPT) 15 U/L (0-35); AST (SGOT) 18 U/L (14-36); Alkaline Phosphatase 81 U/L (38-126); Blood Urea Nitrogen 61 mg/dl (7-17); Calcium 9.7 mg/dl (8.4-10.2); Carbon Dioxide 27 mmol/L (22-30); Chloride 92 mmol/L (98-107); Estimated Creatinine Clearance 5 ml/min; Glucose 237 mg/dl (70-99); Potassium 5.2 mmol/L (3.5-5.1); Sodium 128 mmol/L (135-145); Total Bilirubin 1.3 mg/dl (0.2-1.3); Total Protein 6.9 g/dl (6.3-8.2); eGFR 3.64
[2023-05-14] MEDS: MANNITOL 12.5 GRAMS IV (09:30)
--- NOTE | 2023-05-14 09:49 | W.PN.HOSP.TC ---
Addendum entered and electronically signed by Renu Woodson MD 05/14/23 10:22:
# IDDM
increase Lantus from 20 to 30 units HS
Add aspart 10 units AC
Original Note:
Today's Communication/Plan
-
see A/P
Assessment / Plan
Assessment / Plan
HPI: 77-year-old female past medical history of ESRD on hemodialysis Tuesday, Tuesday, Tuesday, atrial fibrillation on Eliquis, CAD with stents, anemia of chronic disease, type 2 diabetes, hypertension, hyperlipidemia, sarcoidosis, probable
cirrhosis, anxiety, GERD, presented with multiple falls and generalized weakness.
She has been falling off the bed and falling off her wheelchair. On DOA, while trying to get into wheelchair to go to dialysis she fell and therefore was unable to get to dialysis. Daughters have also noticed that patient has been having some
altered mental status and expressions are a bit unusual.
2 days PIPE BOWL PAINT TRIMMER, she had an episode of visually hallucinating a pot of ocasio. She has chronic blurred vision. No recent changes to medications. Patient had a similar episode 2 years ago and was evaluated and diagnosed with TIA prior to being on Eliquis.
Patient has chronic weakness of the left upper extremity due to the AV fistula status post bypass. She has some chronic tingling in her left hand which is stable. Did notice that patient's been more weak in the left hand over the past few days.
Daughter is also noted some intermittent slurring of speech.
A/P:
# Generalized weakness with altered mental status and mechanical fall; possibly related to UTI vs TIA/CVA
No focal neurological deficits on examination apart from decreased strength of the left upper extremity which is likely chronic due to complications from fistula
CT head shows no acute intracranial abnormality
Carotid ultrasound shows less than 50% bilateral internal carotid artery stenosis
Check urinalysis if able to collect (pt is on HD)
Follow blood culture
Hold PIPE BOWL PAINT TRIMMER Ativan, gabapentin
Check MRI brain (daughter states that pt is worse today, she is taking more time to respond to questions)
Eventual PT OT when able
# Hypertensive urgency secondary to missed dialysis session on DOA
Cont PIPE BOWL PAINT TRIMMER Coreg
IV hydralazine PRN for SBP > 180
# ESRD on hemodialysis M, W, F
# Mild Hyperkalemia secondary to missed dialysis
# Acute on chronic hyponatremia
Renal on board for HD need
Continue Bumex
Continue sevelamer
# Paroxysmal atrial fibrillation
# CAD status post stents
Continue Coreg
Continue Eliquis
# Anemia of chronic disease
Hemoglobin stable
# Hyperglycemia
# Type 2 diabetes
Continue Levemir 20 units
Insulin sliding scale
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
Hold gabapentin
# Hyperlipidemia
Continue statin
# Sarcoidosis
# Probable cirrhosis
# Anxiety
Hold Ativan
# GERD
Continue Protonix
# History of small partially calcified right frontal convexity meningioma on imaging
Full code
DVT prophylaxis Eliquis
Renal diet
DW and daughter on the phone
total time spent 51 min
Anticipated Discharge: 24 - 48 hours
Subjective/Interval History
-
Date of Service: May 14, 2023
Objective Data
-
Labs:
Laboratory Results
05/14/23
07:32
WBC 5.2
Hgb 10.6 L
Hct 29.2 L
Plt Count 179
Sodium 128 L
Potassium 5.2 H
Chloride 92 L
Carbon Dioxide 27
BUN 61 H
Creatinine 10.1 H*
Glucose 237 H
Calcium 9.7
Total Bilirubin 1.3
AST 18
ALT 15
Alkaline Phosphatase 81
Vital Signs:
Vital Signs
Temp Pulse Resp BP Pulse Ox
37.3 C 69 17 185/71 96
05/14/23 07:45 05/14/23 07:45 05/14/23 07:45 05/14/23 07:45 05/14/23 07:45
I&O
05/13/23 05/14/23 05/15/23
06:59 06:59 06:59
Intake Total 200 / 200
Balance 200 / 200
Review of Systems
-
Constitutional: Reports Weakness and Other (frequent falls )
Physical Exam
-
General: Well Developed, Well Nourished, No Apparent Distress, Comfortable, Conversant (slow to respond), Appears Chronically Ill and Obese
HEENT: Normocephalic, Atraumatic and Moist Mucous Membranes
Respiratory: Clear to Auscultation and Non Labored Respirations; Negative Accessory Resp Muscle Use
Cardiac: Regular Rhythm and S1/S2; Negative Murmur, Rub or Gallop
GI: Soft, Nontender, Nondistended and Normal Bowel Sounds; Negative Organomegaly
Rectal: Deferred by Provider
Musculoskeletal: No Clubbing, No Cyanosis and No Edema
Skin: Negative Rash
Neuro: Awake and Alert
Psych: Calm and Intact Judgement/Insight (somewhat)
Data Reviewed
-
CT Scan: Report Reviewed by me, Discussed with Patient and Discussed with Family
Ultrasound: Report Reviewed by me
Labs: Labs Reviewed by me
--- NOTE | 2023-05-14 11:03 | W.PN.NEPH.HD ---
Assessment
-
pt seen during HD
vitals stable, BP decreases into HD
for MRI today
AVF functions well
MS not baseline
renal diet and FR 40 ounce/day
Progress Note - Hemodialysis
-
Date of Service: May 14, 2023
Duration: 30 minutes and 3 hours
Potassium Bath: 2
Calcium Bath: 2.5
Opti-Dialyzer: 160
Ultrafiltration: Other (2kg)
Blood Flow: 400
Dialysate Flow: 600
Heparin: no
EPO: no
[2023-05-14 11:05] LABS: Glycohemoglobin (HgbA1c) 10.2 % (4.0-5.6)
[2023-05-14 11:18] LABS: Glucose - Point of Care 143 mg/dl (70-99)
[2023-05-14] MEDS: RENVELA PO (11:25)
[2023-05-14] MEDS: NOVOLOG FLEXPEN-LOW RESISTANCE SC ×2 (11:25→11:45)
[2023-05-14] MEDS: BUMEX 1 MG PO (11:36)
[2023-05-14] MEDS: VISBIOME 1 CAP PO (11:36)
[2023-05-14] MEDS: ELIQUIS 5 MG PO ×2 (11:36→21:29)
[2023-05-14] MEDS: RENVELA 800 MG PO ×2 (11:36→18:01)
[2023-05-14] MEDS: VITAMIN D3 (cholecalciferol) 50 MCG PO (11:37)
[2023-05-14] MEDS: PROTONIX 40 MG PO (11:37)
[2023-05-14] MEDS: COREG 6.25 MG PO ×2 (11:37→21:29)
[2023-05-14] MEDS: NOVOLOG FLEXPEN 10 UNITS SC ×2 (11:44→17:54)
[2023-05-14 15:53] LABS: Glucose - Point of Care 165 mg/dl (70-99)
[2023-05-14 17:31] LABS: Urine Albumin 3+ (Neg - Trace); Urine Bilirubin Negative (Negative); Urine Character Clear (Clear); Urine Color Yellow; Urine Glucose 3+ (Negative); Urine Ketone Negative (Negative); Urine Leukocyte Negative (Negative); Urine Nitrite Negative (Negative); Urine Occult Blood Negative (Negative); Urine Urobilinogen Negative (Neg - 1+)
[2023-05-14 17:49] LABS: Urine Bacteria Few (Negative); Urine Red Blood Cell 0-2 /HPF (0-2); Urine Squamous Cell 0-2 /LPF (Few); Urine White Cell 0-2 /HPF (0-5)
[2023-05-14] MEDS: LIPITOR 80 MG PO (18:01)
[2023-05-14] MEDS: NOVOLOG FLEXPEN-LOW RESISTANCE 1 UNITS SC (18:02)
--- NOTE | 2023-05-14 19:36 | PTCARENOTE ---
Pt vomited very small amount while eating her dinner around 1700, large bites were being taken as well, no aspiration noted. Drank marylin gordo after with no difficulties.
[2023-05-14] MEDS: TYLENOL 650 MG PO (21:28)
--- NOTE | 2023-05-14 21:45 | PTCARENOTE ---
@213;Received telephone call from pt's daughter Miriam. Miriam appears to sound agitated,raising her voice, while talking on phone. Miriam stated;'My dad been waiting 9 hours for Tylenol.I know my mother isn't right and no one is telling me what is wrong
with her.My sister was trying to find out what is going on with my mom,she is not on the list which I gave the information and we have a lot going on'.Instructed Miriam that B[employer]SECUR[employer] OFFICER was notified,Tylenol was ordered and pt did received it.Miriam then
stated,'No one calls me and how am I suppose to get the information?' Instructed Miriam,that Abla name is on the emergency call list.Instructed Miriam that it is helpful to have one family member in charge of getting and passing pt's information to
other family members.Instructed Miriam that she could come in tomorrow at 0800 and wait for the doctor to come to discuss her mother's care.Instructed Miriam that there is no time notification of the doctor's arrival but you can wait in room.Miriam
stated,'I'll be there'. Miriam had no more questions and appeared to be satisfied with this RN answers.
[2023-05-14 22:04] LABS: Glucose - Point of Care 111 mg/dl (70-99)
[2023-05-14] MEDS: LEVEMIR 0.299999999999999989 UNITS SC (23:49)
[2023-05-15] VITALS (7 sets, daily range): BP systolic 123–166; BP diastolic 56–64; BMI 36.2
[2023-05-15 02:08] LABS: Glucose - Point of Care 132 mg/dl (70-99)
[2023-05-15] MEDS: APRESOLINE 10 MG IV (02:25)
[2023-05-15] MEDS: FLUSH (NSS) 2 FLUSH IV (02:27)
[2023-05-15] MEDS: VITAMIN D3 (cholecalciferol) 50 MCG PO (07:40)
[2023-05-15] MEDS: ELIQUIS 5 MG PO ×2 (07:40→19:41)
[2023-05-15] MEDS: RENVELA 800 MG PO ×3 (07:40→16:11)
[2023-05-15] MEDS: BUMEX 1 MG PO (07:40)
[2023-05-15] MEDS: PROTONIX 40 MG PO (07:40)
[2023-05-15] MEDS: COREG 6.25 MG PO ×2 (07:41→19:41)
[2023-05-15] MEDS: VISBIOME 1 CAP PO (07:41)
[2023-05-15] MEDS: NOVOLOG FLEXPEN 10 UNITS SC ×3 (07:43→16:11)
[2023-05-15 07:44] LABS: Hematocrit 29.9 % (37.0-47.0); Hemoglobin 10.4 g/dL (12.0-16.0); Mean Corp Hgb Conc. 34.8 g/dL (33.0-37.0); Mean Corpuscular Hgb 30.4 pg (27.0-31.0); Mean Corpuscular Volume 87.4 fL (81.0-99.0); Mean Platelet Volume 10.2 fL (7.4-10.4); Platelet Count 181 10^3/uL (130-400); Red Blood Cell Count 3.42 10^6/uL (4.20-5.40); Red Cell Dist. Width 14.5 % (11.5-14.5)
[2023-05-15] MEDS: NOVOLOG FLEXPEN-LOW RESISTANCE SC ×2 (07:44→11:51)
[2023-05-15 07:45] LABS: Glucose - Point of Care 132 mg/dl (70-99)
[2023-05-15 08:25] LABS: Blood Urea Nitrogen 39 mg/dl (7-17); Calcium 9.4 mg/dl (8.4-10.2); Chloride 92 mmol/L (98-107); Estimated Creatinine Clearance 8 ml/min; Glucose 128 mg/dl (70-99); Magnesium 1.7 mg/dl (1.6-2.3); Potassium 4.1 mmol/L (3.5-5.1); Sodium 130 mmol/L (135-145); eGFR 5.56
[2023-05-15 08:39] LABS: Carbon Dioxide 27 mmol/L (22-30)
--- NOTE | 2023-05-15 09:53 | W.PN.HOSP.TC ---
Today's Communication/Plan
-
see A/P
bold for today
Assessment / Plan
Assessment / Plan
HPI: 77-year-old female past medical history of ESRD on hemodialysis Tuesday, Tuesday, Tuesday, atrial fibrillation on Eliquis, CAD with stents, anemia of chronic disease, type 2 diabetes, hypertension, hyperlipidemia, sarcoidosis, probable
cirrhosis, anxiety, GERD, presented with multiple falls and generalized weakness.
She has been falling off the bed and falling off her wheelchair. On DOA, while trying to get into wheelchair to go to dialysis she fell and therefore was unable to get to dialysis. Daughters have also noticed that patient has been having some
altered mental status and expressions are a bit unusual.
2 days AEROSPACE MANAGER, she had an episode of visually hallucinating a pot of ocasio. She has chronic blurred vision. No recent changes to medications. Patient had a similar episode 2 years ago and was evaluated and diagnosed with TIA prior to being on Eliquis.
Patient has chronic weakness of the left upper extremity due to the AV fistula status post bypass. She has some chronic tingling in her left hand which is stable. Did notice that patient's been more weak in the left hand over the past few days.
Daughter is also noted some intermittent slurring of speech.
A/P:
# Generalized weakness with altered mental status and mechanical fall; unclear cause, acute stroke was ruled out on MRI
# Slurred speech
No focal neurological deficits on examination apart from decreased strength of the left upper extremity which is likely chronic due to complications from fistula
CT head shows no acute intracranial abnormality
Carotid ultrasound shows less than 50% bilateral internal carotid artery stenosis
urinalysis with few bacteriuria, since pt c/o urinary frequency can start empiric ceftriaxone to cover for UTI (daughters would like this)
blood cultures negative
Hold AEROSPACE MANAGER Ativan, gabapentin
MRI brain negative for acute stroke but noted white matter disease of frontal and parietal lobes which is likely chronic
PT OT recc SNF
change to purred diet for now and SPL eval for current slurred speech/ diet recc
Family would appreciate neuro CS for eval of her change in MS
# Hypertensive urgency secondary to missed dialysis session on DOA
Cont AEROSPACE MANAGER Coreg
IV hydralazine PRN for SBP > 180
BP now better
# ESRD on hemodialysis M, W, F
# Mild Hyperkalemia secondary to missed dialysis, resolved
# Acute on chronic hyponatremia
Renal on board for HD need
Continue Bumex
Continue sevelamer
# Paroxysmal atrial fibrillation
# CAD status post stents
Continue Coreg
Continue Eliquis
# Anemia of chronic disease
Hemoglobin stable
# IDDM
# Hyperglycemia on admission
Increased AEROSPACE MANAGER Levemir to 30 units HS, added Aspart 10 units AC - daughters informed of this change
A1C 10.2 %
Insulin sliding scale
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
Hold gabapentin
# Hyperlipidemia
Continue statin
# Sarcoidosis
# Probable cirrhosis
# Anxiety
Hold Ativan
# GERD
Continue Protonix
# History of frontal meningioma on imaging, stable
Full code
DVT prophylaxis Eliquis
Renal diet
DW daughters at bedside
total time spent > 51 min
Anticipated Discharge: 24 - 48 hours
Subjective/Interval History
-
Date of Service: May 15, 2023
Objective Data
-
Labs:
Laboratory Results
05/15/23
06:34
WBC 5.0
Hgb 10.4 L
Hct 29.9 L
Plt Count 181
Sodium 130 L
Potassium 4.1
Chloride 92 L
Carbon Dioxide 27
BUN 39 H
Creatinine 7.1 H*
Glucose 128 H
Calcium 9.4
Vital Signs:
Vital Signs
Temp Pulse Resp BP Pulse Ox
36.7 C 61 18 132/57 97
05/15/23 07:00 05/15/23 07:00 05/15/23 07:00 05/15/23 07:00 05/15/23 07:00
I&O
05/14/23 05/15/23 05/16/23
06:59 06:59 06:59
Intake Total 200 / 200
Output Total 350 / 350
Balance 200 / 200 -350 / -350
Review of Systems
-
Constitutional: Reports Weakness and Other (frequent falls )
Physical Exam
-
General: Well Developed, Well Nourished, No Apparent Distress, Comfortable, Conversant (slow to respond), Appears Chronically Ill and Obese
HEENT: Normocephalic, Atraumatic and Moist Mucous Membranes
Respiratory: Clear to Auscultation and Non Labored Respirations; Negative Accessory Resp Muscle Use
Cardiac: Regular Rhythm and S1/S2; Negative Murmur, Rub or Gallop
GI: Soft, Nontender, Nondistended and Normal Bowel Sounds; Negative Organomegaly
Rectal: Deferred by Provider
Musculoskeletal: No Clubbing, No Cyanosis and No Edema
Skin: Negative Rash
Neuro: Awake and Alert
Psych: Calm and Intact Judgement/Insight (somewhat)
Data Reviewed
-
CT Scan: Report Reviewed by me, Discussed with Patient and Discussed with Family
Ultrasound: Report Reviewed by me
MRI: Report Reviewed by me and Discussed with Family
Labs: Labs Reviewed by me
--- NOTE | 2023-05-15 10:37 | CON.NEURO ---
Neuro Assessment/Plan
Assessment
MRI of brain findings included white matter ischemic disease as well as 1.5 cm MENINGIOMA superior to the right frontal lobe causing mild mass effect which appears unchanged.
Abrupt onset of worsening gait and speech change
Differential diagnosis includes MRI nonvisualized acute ischemic stroke, metabolic disturbance, mass effect from right frontal presumed meningioma
Additionally, the patient's ongoing difficulties may also represent blood pressure variations
Plan
Check blood work for additional metabolic abnormalities
Provide thiamine although unlikely the patient is thiamine deficient as a cause for symptomatology currently
Outpatient neurosurgical evaluation due to possibility that the patient's small right frontal meningioma is producing symptomatology involving the left upper extremity as well as current speech difficulty
Check orthostatics
Will follow.
Consultation
Order
Date of Consultation: 05/15/23
Requesting Provider: Hospitalists
Reason for Consult: Speech change
Subjective/Objective
Subjective Data
Date of Service: May 15, 2023
R-handed
'My knees give out,' with walking.
2 days prior to admission, she had an episode of visually hallucinating a pot of ocasio.
She presented to the emergency room with multiple falls and a problem with speech since yesterday. She has been feeling generally weak and has been falling off the bed and falling off her wheelchair. On the day of admission, while trying to get into
wheelchair to go to dialysis she fell and therefore missed dialysis. Did notice that patient's been more weak in the left hand over the past few days.
Daughters have also noticed that patient has been having some altered mental status according to the chart, not confirmed by the patient. Did have some nausea earlier. Daughter is also noted some intermittent slurring of speech.
No recent changes to medications. Patient had a similar episode 2 years ago and was evaluated as below.
Patient has chronic weakness of the left upper extremity due to the AV fistula status post bypass. She has some chronic tingling in her left hand which is stable. No known modifying factors. No known other additional associated symptoms.
Adapted from a combination of my esteemed colleagues� notes:
DATE/TIME OF CONSULTATION: 09/05/21 at 915
Reason for Consultation: stroke alert
History of Present Illness:
75-year-old female with several vascular risk factors including diabetes, ESRD, and hypertension brought in yesterday after dialysis. Her last known normal was around 4 PM. Shortly thereafter family noted that she was disoriented, that her speech
had become 'gibberish' and she was answering 'yes and okay' to all questions. EMS was called. Per the ED, her blood glucose in the field was 300. I was notified at 5:15 PM of the case from the ED doctor. On exam she had receptive aphasia with right
hemineglect and right facial weakness. Family agreed to alteplase which was administered. No large vessel occlusion was seen on CTA so she was not a candidate for thrombectomy. On exam today she has no clear aphasia other than inability to name 1
drawing. She has no weakness or hemineglect. She does have some mild right facial droop. She states that she feels back to her baseline and does not remember the details of yesterday's events.
Diagnosis:
CECI GARRISON is a 75 year old F who has presented to the hospital with right facial weakness, right hemineglect and aphasia concerning for left hemispheric ischemic stroke of left MCA territory, likely atherothrombotic.� Her aphasia and hemineglect
have resolved status post alteplase.� Per EMS her blood glucose was very elevated at 300 which could have also caused focal deficits. MRI brain showed no evidence of stroke.
On CTA left-sided ICA approximately 45 to 50% stenosis, right ICA with approximately 47% ICA stenosis
Moderate cavernous segment intracranial stenosis on the carotid artery bilaterally
Hemoglobin A1c is 5.7 LDL is 87
MRI brain finding some possible cervical spinal cord compression which appears completely asymptomatic
Etiology for this episode it was a true TIA with the atheroembolic or cardioembolic etiologies, alternatively could simply be due to hyperglycemia producing acute neurologic deficits
Continue increased dose of atorvastatin to 80 mg daily goal less than 70 her LDL is 87
She reports she has been on aspirin and clopidogrel both for least a few years, from my standpoint requires dual antiplatelet therapy beyond 09/27 which would be 3 weeks of DAPT therapy after possible TIA
Objective Data
Vital Signs
Temp Pulse Resp BP Pulse Ox
36.7 C 61 18 132/57 97
05/15/23 07:00 05/15/23 07:00 05/15/23 07:00 05/15/23 07:00 05/15/23 07:00
Lab Results
05/15/23 06:34
05/15/23 06:34
Sodium 130 mmol/L (135-145) L 05/15/23 06:34
Potassium 4.1 mmol/L (3.5-5.1) 05/15/23 06:34
BUN 39 mg/dl (7-17) H 05/15/23 06:34
Glucose 128 mg/dl (70-99) H 05/15/23 06:34
Calcium 9.4 mg/dl (8.4-10.2) 05/15/23 06:34
Patient Allergies
Iodinated Contrast Media [Iodinated Contrast- Oral and IV Dye] Allergy (Verified 05/13/23 12:19)
Hives/RASH
Review of Systems
-
History Source: Patient
All other systems: Reviewed and negative
EENT: Swallowing Difficulty (once)
Abdomen/GI: Negative Incontinence of Stool
Genitourinary: Negative Incontinence
Musculoskeletal: Muscle Weakness
Neuro: Other (declining handwriting); Negative Dizzy or Headache
Physical Exam
-
General: No Apparent Distress and Appears Stated Age
Eyes: OU Absent Papilledema, Round OU, Mastic Conjunctivae and No Ptosis
HEENT: Anicteric and Moist Mucous Membranes
Neck: Full Range of Motion
Respiratory: No Dyspnea
Cardiac: No JVD
GI: Non-distended
Skin: Unremarkable
Extremities: No Clubbing, No Cyanosis and No Edema
Psych: Intact Judgement/Insight
Extended Neurological Exam
Mood & Affect: Mood Unremarkable and Affect Unremarkable
Attention Span & Concentration: Awake, Alert, Interactive and Severe Difficulty with 2 Step Request
Memory: Able to Recall (Month and year without difficulty) and Reduced (For the correct timing of events)
Tremor: Hand Tremor Absent and Head Tremor Absent
Speech: Mildly Reduced Output, Dysarthric (Minimally thick) and Other (Minimal hesitancy with word finding); Negative Pressured or Hoarse
Cranial Nerve II: Left Eye: Pupillary Reactivity Unremarkable, Pupillary Size Unremarkable and Visual [place] Intact
Cranial Nerve II: Right Eye: Pupillary Reactivity Unremarkable, Pupillary Size Unremarkable and Visual [place] Intact
Cranial Nerves III, IV, : Extraocular Movement: Extraocular Movement Full in all Directions
Cranial Nerve VII: Facial Symmetry: Normal Facial Symmetry
Cranial Nerve VIII: Hearing: Unremarkable Hearing to Normal Conversational Volume
Cranial Nerves IX, X: Palate Movement: Palate Elevation Symmetric
Cranial Nerve XII: Tongue Protusion: Midline
Muscle Strength, Overall: Reduced (In left upper extremity, approximately and distally 4 out of 5) and Otherwise Intact
Muscle Bulk & Tone: Bulk Unremarkable and Tone Unremarkable
Pronator Drift: Unable to Assess (Left upper extremity completely due to inability of the patient to extend the arm fully); Negative Drift in Right Upper Extremity
Deep Tendon Reflexes: Absent Throughout
Touch Sensation: Unremarkable
Coordination: [id number] Testing Unremarkable
Babinski Sign: Absent Bilaterally
Data Reviewed
-
MRI Head: Report Reviewed and Image Reviewed
Labs: Ordered and Report Reviewed
Reviewed with: Physician, Patient and Family (by phone)
Old Records: Summarized
Medications
-
Active Medications
Generic Name Dose Route Start Last Admin
Trade Name Freq PRN Reason Stop Dose Admin
Acetaminophen 650 mg 05/14/23 20:39 05/14/23 21:28
Acetaminophen 325 Mg Tablet PO 06/11/23 20:38 650 mg
Q4HPRN PRN Administration
mild pain/WANG/temp>100.5
Apixaban 5 mg 05/13/23 20:00 05/15/23 07:40
Apixaban (Eliquis) 5 Mg Tablet PO 06/10/23 19:59 5 mg
BID FELY Administration
Atorvastatin Calcium 80 mg 05/13/23 19:44 05/14/23 18:01
Atorvastatin (Lipitor) 80 Mg Tablet PO 06/10/23 19:43 80 mg
QPM FELY Administration
Bumetanide 1 mg 05/14/23 08:00 05/15/23 07:40
Bumetanide 1 Mg Tablet PO 06/11/23 07:59 1 mg
DAILY FELY Administration
Carvedilol 6.25 mg 05/13/23 20:00 05/15/23 07:41
Carvedilol 6.25 Mg Tablet PO 06/10/23 19:59 6.25 mg
BID FELY Administration
Ceftriaxone Sodium 1,000 mg 05/15/23 12:00
Ceftriaxone 1000 Mg / 10 Ml Vial IV
Q24H FELY
Cholecalciferol 50 mcg 05/14/23 08:00 05/15/23 07:40
Cholecalciferol (Vitamin D3) 50 Mcg Tablet (2,000 Units) PO 06/11/23 07:59 50 mcg
DAILY FELY Administration
Dextrose 12.5 grams 05/13/23 19:44
Dextrose 50% (0.5 Grams/Ml) 50 Ml Syringe IV 06/10/23 19:43
[id number] PRN
hypoglycemia
Protocol
Glucagon 1 mg 05/13/23 19:44
Glucagon 1 Mg Vial IM 06/10/23 19:43
PRN PRN
hypoglycemia
Protocol
Hydralazine HCl 10 mg 05/14/23 09:58 05/15/23 02:25
Hydralazine 20 Mg/Ml Vial IV 06/10/23 17:26 10 mg
Q6HPRN PRN Administration
SBP>180
Insulin Detemir 30 units/ 0.3 mls @ 0 mls/hr 05/14/23 10:20 05/14/23 23:49
Device SC 06/10/23 21:59 0.3 mls
HS FELY Administration
As Directed
Insulin Aspart 0 units 05/14/23 07:30 05/15/23 07:44
Insulin Aspart Low Resistance 300 Units/3 Ml Pen.Injctr SC 06/11/23 07:29 Not Given
AC FELY
Protocol
Insulin Aspart 10 units 05/14/23 11:30 05/15/23 07:43
Insulin Aspart (100 Units/Ml) 3 Ml Flexpen SC 06/11/23 11:29 10 units
AC FELY Administration
Lactobacillus/Bifidobacterium 1 cap 05/14/23 08:00 05/15/23 07:41
Lactobac/Bifidobac (Visbiome) PO 06/11/23 07:59 1 cap
DAILY FELY Administration
Pantoprazole Sodium 40 mg 05/14/23 08:00 05/15/23 07:40
Pantoprazole 40 Mg Delayed Release Tablet PO 06/11/23 07:59 40 mg
DAILY FELY Administration
Sevelamer Carbonate 800 mg 05/13/23 19:44 05/15/23 07:40
Sevelamer Carbonate (Renvela) 800 Mg Tablet PO 06/10/23 19:43 800 mg
MEALS FELY Administration
Sodium Chloride 0 flush 05/13/23 18:00 05/15/23 02:27
Sodium Chloride 0.9% (Flush) Syringe IV 06/10/23 17:59 2 flush
PER PROTOCOL FELY Administration
Home Medications
�Medication �Instructions �Recorded
lorazepam 1 mg tablet 1 mg PO DAILY anxiety 07/27/21
pantoprazole 40 mg tablet,delayed 40 mg PO DAILY Gastrointestinal 07/27/21
release issue
bumetanide 1 mg tablet 1 mg PO DAILY Fluid 07/01/22
Retention/Swelling
insulin detemir U-100 100 unit/mL 20 unit SC HS Diabetes 07/01/22
(3 mL) subcutaneous pen (Levemir
FlexPen)
lactobacillus combination no.4 3 3,000 mmu cells PO DAILY 07/01/22
billion cell capsule (Probiotic) Gastrointestinal Issue
sevelamer HCl 800 mg tablet 800 mg PO MEALS Kidney Disease 07/30/22
apixaban 5 mg tablet (Eliquis) 5 mg PO BID #60 tabs 08/16/22
carvedilol 6.25 mg tablet 6.25 mg PO BID Blood Pressure 03/09/23
cholecalciferol (vitamin D3) 50 50 mcg PO DAILY Supplement 03/09/23
mcg (2,000 unit) tablet (Vitamin
D3)
atorvastatin 80 mg tablet 80 mg PO QPM High Cholesterol 05/13/23
gabapentin 100 mg capsule 100 mg PO TID Pain 05/13/23
Past History
Past History
ED Past Medical History: Arrthythmia (Afib), CAD, HTN, Hypercholesterolemia, NIDDM, Renal failure, Psychiatric (anxiety) and Other (pulmonary sarcoid 1990s, LUE AVF, COVID-19, HD)
ED Past Surgical History: Cardiac and Gynecological
Patient has exhibited threatening behavior?: No
PSI?: No
Social History
Tobacco: Former smoker
Alcohol: None
Drug: None
Personal:
Living: with family
Employment: Not employed
Family History
Family History: Other (reviewed and non-contributory)
[2023-05-15] MEDS: STERILE WATER FOR INJECTION 10 ML IV (11:42)
[2023-05-15] MEDS: ROCEPHIN 1000 MG IV (11:42)
[2023-05-15 11:52] LABS: Glucose - Point of Care 125 mg/dl (70-99)
[2023-05-15 12:30] LABS: Erythrocyte Sed Rate 61 mm/hour (0-20)
[2023-05-15 12:56] LABS: TSH Reflex To Free T4 2.42 uIU/ml (0.47-4.68)
[2023-05-15 13:32] LABS: Folate 10.1 ng/ml (2.76-20); Vitamin B12 339 pg/ml (239-931)
--- NOTE | 2023-05-15 13:42 | W.PN.NEPH.PH ---
Today's Communication / Plan
-
HD Tomorrow
Assessment/Plan
-
Impression:
Change of mental status/falls
End-stage renal disease Tuesday
Hypertension
Left upper extremity AV
Coronary artery disease with prior history of stent
Hyperkalemia
Diabetes
Atrial fibrillation
Plan:
Left UE and left face drop continues, MRI neg stroke but had meningioma, neuro follows
AMS improving , not baseline yet
BP are labile, follow orthostatics, cont coreg, may need add another med
chronically high BP pre HD and drops after HD, high fluid gains in out pt
Maintain phosphate binders with meals for hyperphosphatemia
renal diet and FR
-
-
Date of Service: May 15, 2023
CC / HPI / ROS
-
Chief Complaint:
ESRD
History of Present Illness:
tolerated HD 05/13
BP labile, no fever
k normal
Review of Systems:
no cp or sob
still weak of left UE and speech improving
Labs
-
Labs:
WBC 5.0 10^3/uL (4.8-10.8) 05/15/23 06:34
RBC 3.42 10^6/uL (4.20-5.40) L 05/15/23 06:34
Hgb 10.4 g/dL (12.0-16.0) L 05/15/23 06:34
Hct 29.9 % (37.0-47.0) L 05/15/23 06:34
Plt Count 181 10^3/uL (130-400) 05/15/23 06:34
Sodium 130 mmol/L (135-145) L 05/15/23 06:34
Potassium 4.1 mmol/L (3.5-5.1) 05/15/23 06:34
Chloride 92 mmol/L (98-107) L 05/15/23 06:34
Carbon Dioxide 27 mmol/L (22-30) 05/15/23 06:34
BUN 39 mg/dl (7-17) H 05/15/23 06:34
Creatinine 7.1 mg/dL (0.6-1.0) H* 05/15/23 06:34
eGFR 5.56 05/15/23 06:34
Glucose 128 mg/dl (70-99) H 05/15/23 06:34
Calcium 9.4 mg/dl (8.4-10.2) 05/15/23 06:34
Albumin 4.0 g/dl (3.5-5.0) 05/14/23 07:32
Physical Exam
-
Vital Signs:
Vital Signs
Temp Pulse Resp BP Pulse Ox
99.9 F 61 17 156/63 98
05/15/23 11:00 05/15/23 11:00 05/15/23 11:00 05/15/23 11:00 05/15/23 11:00
Cardiovascular:: Regular rate and rhythm
Respiratory:: Bilateral: CTA
Lung Excursion:: Normal
Abdomen:: Nontender and Soft
Extremity Edema:: None: Bilateral:
Romero Catheter: No
Other Findings::
left facial droop +
left UE 3/5
[2023-05-15] MEDS: THIAMINE INJECTION 100 MG IV (14:17)
--- NOTE | 2023-05-15 15:35 | PTOTSP ---
ST Acute Care Evaluation
Pt presents with mild oral dysphagia characterized by prolonged mastication and bolus formation 2/2 edentulous oral cavity and acute encephalopathy.
Recommendations:
- Upgrade diet to SOFT BITE SIZED SOLIDS with REGULAR THIN LIQUIDS with meds as tolerated.
- General aspiration precautions: HOB upright for all PO intake; pt must be fully upright for all PO intake; encourage pt to chew foods thoroughly; alternate bites/sips.
- ADVANCED MANAGER to complete speech and language evaluation.
- ADVANCED MANAGER to continue to monitor diet tolerance/safety.
[2023-05-15 16:11] LABS: Glucose - Point of Care 158 mg/dl (70-99)
[2023-05-15] MEDS: NOVOLOG FLEXPEN-LOW RESISTANCE 1 UNITS SC (16:11)
[2023-05-15] MEDS: LIPITOR 80 MG PO (17:14)
[2023-05-15] MEDS: TYLENOL 650 MG PO (20:39)
[2023-05-15] MEDS: LEVEMIR 0.299999999999999989 UNITS SC (21:15)
[2023-05-15 21:23] LABS: Glucose - Point of Care 127 mg/dl (70-99)
[2023-05-16] VITALS (8 sets, daily range): BP systolic 122–169; BP diastolic 48–68; PULSE 59; O2SAT 99; BMI 36.5
[2023-05-16 04:40] LABS: Glucose - Point of Care 130 mg/dl (70-99)
[2023-05-16] MEDS: ZOFRAN 4 MG IV ×2 (05:01→15:58)
--- NOTE | 2023-05-16 05:23 | PTCARENOTE ---
Pt called RN into room verbalizing 'I don't feel right, i feel like im floating off the bed' VSS, blood sugar 130. DRAWBRIDGE OPERATOR kaitlyn made aware and zofran given for nausea pt reported.
[2023-05-16 06:00] LABS: Hematocrit 31.5 % (37.0-47.0); Mean Corp Hgb Conc. 34.9 g/dL (33.0-37.0); Mean Corpuscular Hgb 31.1 pg (27.0-31.0); Mean Platelet Volume 9.8 fL (7.4-10.4); Platelet Count 155 10^3/uL (130-400); Red Blood Cell Count 3.54 10^6/uL (4.20-5.40); Red Cell Dist. Width 14.3 % (11.5-14.5); White Blood Cell Count 5.2 10^3/uL (4.8-10.8)
[2023-05-16 06:26] LABS: Blood Urea Nitrogen 55 mg/dl (7-17); Calcium 9.1 mg/dl (8.4-10.2); Carbon Dioxide 27 mmol/L (22-30); Chloride 91 mmol/L (98-107); Estimated Creatinine Clearance 6 ml/min; Glucose 143 mg/dl (70-99); Potassium 4.3 mmol/L (3.5-5.1); Sodium 128 mmol/L (135-145); eGFR 4.29
[2023-05-16 07:59] LABS: Glucose - Point of Care 153 mg/dl (70-99)
--- NOTE | 2023-05-16 09:27 | W.PN.NEURO.1 ---
Today's Communication / Plan
-
Initiated vitamin B12 replacement due to deficiency
Continue thiamine although unlikely the patient is thiamine deficient as a cause for symptomatology currently
Outpatient neurosurgical evaluation due to possibility that the patient's small right frontal meningioma is producing symptomatology involving the left upper extremity as well as current speech difficulty
Provide patient's usual lorazepam despite continued symptomatology
Follow orthostatics
Neuro Assessment/Plan
Assessment
MRI of brain findings included white matter ischemic disease as well as 1.5 cm MENINGIOMA superior to the right frontal lobe causing mild mass effect which appears unchanged.
Abrupt onset of worsening gait and speech change
Differential diagnosis includes MRI nonvisualized acute ischemic stroke, mass effect from right frontal presumed meningioma, resolving metabolic disturbance
Additionally, the patient's ongoing difficulties may also represent blood pressure variations
Plan
Continue patient's usual apixaban
Initiated vitamin B12 replacement due to deficiency
Continue thiamine although unlikely the patient is thiamine deficient as a cause for symptomatology currently
Outpatient neurosurgical evaluation due to possibility that the patient's small right frontal meningioma is producing symptomatology involving the left upper extremity as well as current speech difficulty
Provide patient's usual lorazepam despite continued symptomatology
Follow orthostatics
Will follow.
Subjective/Objective
Subjective Data
Date of Service: May 16, 2023
Patient reports mild improvement in speech.
Objective Data
Vital Signs
Temp Pulse Resp BP Pulse Ox
36.6 C 54 18 163/63 98
05/16/23 07:00 05/16/23 07:00 05/16/23 07:00 05/16/23 07:00 05/16/23 07:00
Lab Results
05/16/23 05:44
05/16/23 05:44
Sodium 128 mmol/L (135-145) L 05/16/23 05:44
Potassium 4.3 mmol/L (3.5-5.1) 05/16/23 05:44
BUN 55 mg/dl (7-17) H 05/16/23 05:44
Glucose 143 mg/dl (70-99) H 05/16/23 05:44
Calcium 9.1 mg/dl (8.4-10.2) 05/16/23 05:44
Vitamin B12 339 pg/ml (239-931) 05/15/23 06:34
Patient Allergies
Iodinated Contrast Media [Iodinated Contrast- Oral and IV Dye] Allergy (Verified 05/13/23 12:19)
Hives/RASH
Review of Systems
-
History Source: Patient
All other systems: Reviewed and negative
Physical Exam
-
General: No Apparent Distress and Appears Stated Age
Eyes: Round OU, [place] Conjunctivae and No Ptosis
HEENT: Anicteric and Moist Mucous Membranes
Neck: Full Range of Motion
Respiratory: No Dyspnea
Cardiac: No JVD
GI: Non-distended
Skin: Unremarkable
Extremities: No Clubbing, No Cyanosis and No Edema
Psych: Intact Judgement/Insight
Extended Neurological Exam
Mood & Affect: Mood Unremarkable and Affect Unremarkable
Attention Span & Concentration: Awake, Alert and Interactive
Memory: Unremarkable
Tremor: Hand Tremor Absent and Head Tremor Absent
Speech: Mildly Reduced Output and Dysarthric (Minimally thick)
Cranial Nerve II: Left Eye: Pupillary Size Unremarkable and Visual Lyon Grossly Intact
Cranial Nerve II: Right Eye: Pupillary Size Unremarkable and Visual Lyon Grossly Intact
Cranial Nerves III, IV, : Extraocular Movement: Grossly Intact
Cranial Nerve VII: Facial Symmetry: Normal Facial Symmetry
Cranial Nerve VIII: Hearing: Unremarkable Hearing to Normal Conversational Volume
Muscle Strength, Overall: Spontaneously Moves
Muscle Bulk & Tone: Bulk Unremarkable and Tone Unremarkable
Gait & Station: Unable to Assess
Data Reviewed
-
MRI Head: Report Reviewed and Image Reviewed
Reviewed with: Nurse, Nurse Practioner and Patient
Old Records: Summarized
Past History
Past History
ED Past Medical History: Arrthythmia (Afib), CAD, HTN, Hypercholesterolemia, NIDDM, Renal failure, Psychiatric (anxiety) and Other (pulmonary sarcoid 1990s, LUE AVF, COVID-19, HD)
ED Past Surgical History: Cardiac and Gynecological
Patient has exhibited threatening behavior?: No
PSI?: No
Social History
Tobacco: Former smoker
Alcohol: None
Drug: None
Personal:
Living: with family
Employment: Not employed
Family History
Family History: Other (reviewed and non-contributory)
Medications
-
Medications:
Generic Name Dose Route Start Last Admin
Trade Name Freq PRN Reason Stop Dose Admin
Acetaminophen 650 mg 05/14/23 20:39 05/15/23 20:39
Acetaminophen 325 Mg Tablet PO 06/11/23 20:38 650 mg
Q4HPRN PRN Administration
mild pain/WANG/temp>100.5
Albumin Human 12.5 grams 05/16/23 08:00
Albumin 12.5 Grams/50 Ml Bag *For Hemodialysis* IV 05/16/23 23:59
HD-Q1HPRN PRN
sbp<100
Apixaban 5 mg 05/13/23 20:00 05/15/23 19:41
Apixaban (Eliquis) 5 Mg Tablet PO 06/10/23 19:59 5 mg
BID FELY Administration
Atorvastatin Calcium 80 mg 05/13/23 19:44 05/15/23 17:14
Atorvastatin (Lipitor) 80 Mg Tablet PO 06/10/23 19:43 80 mg
QPM FELY Administration
Bumetanide 1 mg 05/14/23 08:00 05/15/23 07:40
Bumetanide 1 Mg Tablet PO 06/11/23 07:59 1 mg
DAILY FELY Administration
Carvedilol 6.25 mg 05/13/23 20:00 05/15/23 19:41
Carvedilol 6.25 Mg Tablet PO 06/10/23 19:59 6.25 mg
BID FELY Administration
Ceftriaxone Sodium 1,000 mg 05/15/23 12:00 05/15/23 11:42
Ceftriaxone 1000 Mg / 10 Ml Vial IV 1,000 mg
Q24H EFLY Administration
Cholecalciferol 50 mcg 05/14/23 08:00 05/15/23 07:40
Cholecalciferol (Vitamin D3) 50 Mcg Tablet (2,000 Units) PO 06/11/23 07:59 50 mcg
DAILY FELY Administration
Cyanocobalamin 1,000 mcg 05/16/23 08:00
Cyanocobalamin 1,000 Mcg Tablet PO 06/13/23 07:59
DAILY FELY
Dextrose 12.5 grams 05/13/23 19:44
Dextrose 50% (0.5 Grams/Ml) 50 Ml Syringe IV 06/10/23 19:43
[id number] PRN
hypoglycemia
Protocol
Glucagon 1 mg 05/13/23 19:44
Glucagon 1 Mg Vial IM 06/10/23 19:43
PRN PRN
hypoglycemia
Protocol
Insulin Detemir 30 units/ 0.3 mls @ 0 mls/hr 05/14/23 10:20 05/15/23 21:15
Device SC 06/10/23 21:59 0.3 mls
HS FELY Administration
As Directed
Insulin Aspart 0 units 05/14/23 07:30 05/15/23 16:11
Insulin Aspart Low Resistance 300 Units/3 Ml Pen.Injctr SC 06/11/23 07:29 1 units
AC FELY Administration
Protocol
Insulin Aspart 10 units 05/14/23 11:30 05/15/23 16:11
Insulin Aspart (100 Units/Ml) 3 Ml Flexpen SC 06/11/23 11:29 10 units
AC FELY Administration
Lactobacillus/Bifidobacterium 1 cap 05/14/23 08:00 05/15/23 07:41
Lactobac/Bifidobac (Visbiome) PO 06/11/23 07:59 1 cap
DAILY FELY Administration
Lorazepam 1 mg 05/16/23 09:30
Lorazepam 1 Mg Tablet PO 06/13/23 09:29
DAILY FELY
Mannitol 12.5 grams 05/16/23 08:00
Mannitol 25% (12.5 Grams/50 Ml) Vial IV 05/16/23 23:59
HD-Q1HPRN PRN
sbp<100
Pantoprazole Sodium 40 mg 05/14/23 08:00 05/15/23 07:40
Pantoprazole 40 Mg Delayed Release Tablet PO 06/11/23 07:59 40 mg
DAILY FELY Administration
Sevelamer Carbonate 800 mg 05/13/23 19:44 05/15/23 16:11
Sevelamer Carbonate (Renvela) 800 Mg Tablet PO 06/10/23 19:43 800 mg
MEALS FELY Administration
Sodium Chloride 0 flush 05/13/23 18:00 05/15/23 02:27
Sodium Chloride 0.9% (Flush) Syringe IV 06/10/23 17:59 2 flush
PER PROTOCOL FELY Administration
Sterile Water 10 ml 05/15/23 12:00 05/15/23 11:42
Sterile Water For Injection 10 Ml Vial IV 06/12/23 11:59 10 ml
Q24H FELY Administration
Thiamine HCl 100 mg 05/15/23 15:00 05/15/23 14:17
Thiamine (100 Mg/Ml) 2 Ml Vial IV 05/17/23 08:01 100 mg
DAILY FELY Administration
[2023-05-16] MEDS: ATIVAN 1 MG PO (09:37)
[2023-05-16] MEDS: RETACRIT 4000 UNITS IV (10:17)
[2023-05-16 11:31] LABS: Glucose - Point of Care 119 mg/dl (70-99)
[2023-05-16] MEDS: NOVOLOG FLEXPEN-LOW RESISTANCE SC ×3 (11:32→16:46)
[2023-05-16] MEDS: NOVOLOG FLEXPEN SC (11:32)
[2023-05-16] MEDS: STERILE WATER FOR INJECTION 10 ML IV (13:06)
[2023-05-16] MEDS: ROCEPHIN 1000 MG IV (13:07)
[2023-05-16] MEDS: VITAMIN B1 100 MG PO (13:07)
[2023-05-16] MEDS: BUMEX 1 MG PO (13:07)
[2023-05-16] MEDS: PROTONIX 40 MG PO (13:10)
[2023-05-16] MEDS: VISBIOME 1 CAP PO (13:10)
[2023-05-16] MEDS: COREG 6.25 MG PO ×2 (13:10→20:21)
[2023-05-16] MEDS: ELIQUIS 5 MG PO ×2 (13:10→20:22)
[2023-05-16] MEDS: VITAMIN B-12 1000 MCG PO (13:10)
[2023-05-16] MEDS: VITAMIN D3 (cholecalciferol) 50 MCG PO (13:11)
[2023-05-16] MEDS: RENVELA 800 MG PO ×2 (13:11→16:46)
[2023-05-16] MEDS: RENVELA PO (13:11)
[2023-05-16] MEDS: NOVOLOG FLEXPEN 10 UNITS SC ×2 (13:12→16:45)
--- NOTE | 2023-05-16 13:29 | W.PN.HOSP.TC ---
Today's Communication/Plan
-
EEG
Antibiotics
SNF
Assessment / Plan
Assessment / Plan
HPI: 77-year-old female past medical history of ESRD on hemodialysis Tuesday, Tuesday, Tuesday, atrial fibrillation on Eliquis, CAD with stents, anemia of chronic disease, type 2 diabetes, hypertension, hyperlipidemia, sarcoidosis, probable
cirrhosis, anxiety, GERD, presented with multiple falls and generalized weakness.
She has been falling off the bed and falling off her wheelchair. On DOA, while trying to get into wheelchair to go to dialysis she fell and therefore was unable to get to dialysis. Daughters have also noticed that patient has been having some
altered mental status and expressions are a bit unusual.
2 days HL7 INTERFACE DEVELOPER, she had an episode of visually hallucinating a pot of ocasio. She has chronic blurred vision. No recent changes to medications. Patient had a similar episode 2 years ago and was evaluated and diagnosed with TIA prior to being on Eliquis.
Patient has chronic weakness of the left upper extremity due to the AV fistula status post bypass. She has some chronic tingling in her left hand which is stable. Did notice that patient's been more weak in the left hand over the past few days.
Daughter is also noted some intermittent slurring of speech.
CVS: S1-S2 normal
Chest: CTA B/L
Abdomen: Soft, NT / Bowel sounds present
Extremities: No edema, normal pulses
BORE MILL OPERATOR: No facial droop
A/P:
# Generalized weakness with altered mental status and mechanical fall; unclear cause, acute stroke was ruled out on MRI
# Slurred speech
No focal neurological deficits on examination apart from decreased strength of the left upper extremity which is likely chronic due to complications from fistula
CT head shows no acute intracranial abnormality
Carotid ultrasound shows less than 50% bilateral internal carotid artery stenosis
urinalysis with few bacteriuria, since pt c/o urinary frequency can start empiric ceftriaxone to cover for UTI
blood cultures negative
Hold HL7 INTERFACE DEVELOPER Ativan, gabapentin
MRI brain negative for acute stroke but noted white matter disease of frontal and parietal lobes which is likely chronic
PT OT recc SNF
change to purred diet for now and SPL eval for current slurred speech/ diet recc
Neurology recommends neurosurgery follow-up.
Discussed with the patient's daughter regarding meningioma.
I will also obtain an EEG-ordered.
Daughter feels that patient is much better
# Hypertensive urgency secondary to missed dialysis session on DOA
Cont HL7 INTERFACE DEVELOPER Coreg
IV hydralazine PRN for SBP > 180
BP now better
# ESRD on hemodialysis M, W, F
# Mild Hyperkalemia secondary to missed dialysis, resolved
# Acute on chronic hyponatremia
Renal on board for HD need
Continue Bumex
Continue sevelamer
# Paroxysmal atrial fibrillation
# CAD status post stents
Continue Coreg
Continue Eliquis
# Anemia of chronic disease
Hemoglobin stable
# IDDM
# Hyperglycemia on admission
Increased HL7 INTERFACE DEVELOPER Levemir to 30 units HS, added Aspart 10 units AC
A1C 10.2 %
Insulin sliding scale
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
Hold gabapentin
# Hyperlipidemia
Continue statin
# Sarcoidosis-pulmonary
# Probable cirrhosis
# History of left lumpectomy 2016
# Anxiety-Ativan restarted
# GERD
Continue Protonix
# History of frontal meningioma on imaging, stable
# Spinal stenosis/arthritis
# Ex-smoker
#Full code
#DVT prophylaxis Eliquis
D/W Neurology
Discussed with patient's daughter and patient's at bedside
Anticipated Discharge: Within 24 hours
Subjective/Interval History
-
Date of Service: May 16, 2023
Objective Data
-
Labs:
Laboratory Results
05/16/23
05:44
WBC 5.2
Hgb 11.0 L
Hct 31.5 L
Plt Count 155
Sodium 128 L
Potassium 4.3
Chloride 91 L
Carbon Dioxide 27
BUN 55 H
Creatinine 8.8 H*
Glucose 143 H
Calcium 9.1
Vital Signs:
Vital Signs
Temp Pulse Resp BP Pulse Ox
97.9 F 52 18 168/68 99
05/16/23 11:00 05/16/23 13:10 05/16/23 11:00 05/16/23 13:10 05/16/23 11:00
I&O
05/15/23 05/16/23 05/17/23
06:59 06:59 06:59
Intake Total 360 / 360
Output Total 350 / 350
Balance -350 / -350 360 / 360
[2023-05-16] MEDS: THIAMINE INJECTION IV (13:30)
--- NOTE | 2023-05-16 13:53 | W.PN.NEPH.HD ---
Assessment
-
fatigued today on HD
continues with AMS, not at baseline
Progress Note - Hemodialysis
-
Date of Service: May 16, 2023
Duration: 30 minutes and 3 hours
Potassium Bath: 3
Calcium Bath: 2.5
Opti-Dialyzer: 160
Ultrafiltration: Other
Blood Flow: 400
Dialysate Flow: 600
EPO: 4K
[2023-05-16] MEDS: TYLENOL 650 MG PO ×2 (14:47→20:21)
[2023-05-16 16:21] LABS: Glucose - Point of Care 104 mg/dl (70-99)
[2023-05-16 16:25] LABS: Lyme Antibody Screen, EIA Negative (Negative)
[2023-05-16] MEDS: LIPITOR 80 MG PO (16:46)
[2023-05-16 21:21] LABS: Glucose - Point of Care 84 mg/dl (70-99)
[2023-05-16] MEDS: LEVEMIR 0.299999999999999989 UNITS SC (21:40)
[2023-05-16] MEDS: SENOKOT PO (21:43)
[2023-05-17] VITALS (7 sets, daily range): BP systolic 104–179; BP diastolic 45–76; PULSE 64; O2SAT 98; BMI 35.8
[2023-05-17] MEDS: TYLENOL 650 MG PO ×2 (05:50→15:19)
[2023-05-17 07:46] LABS: Glucose - Point of Care 121 mg/dl (70-99)
[2023-05-17] MEDS: NOVOLOG FLEXPEN-LOW RESISTANCE SC ×3 (07:56→16:41)
[2023-05-17] MEDS: VISBIOME 1 CAP PO (07:57)
[2023-05-17] MEDS: BUMEX 1 MG PO (07:57)
[2023-05-17] MEDS: PROTONIX 40 MG PO (07:57)
[2023-05-17] MEDS: VITAMIN B1 100 MG PO (07:57)
[2023-05-17] MEDS: VITAMIN B-12 1000 MCG PO (07:57)
[2023-05-17] MEDS: COREG 6.25 MG PO ×2 (07:57→20:32)
[2023-05-17] MEDS: RENVELA 800 MG PO ×3 (07:57→17:07)
[2023-05-17] MEDS: ATIVAN 1 MG PO (07:57)
[2023-05-17] MEDS: ELIQUIS 5 MG PO ×2 (07:57→20:32)
[2023-05-17] MEDS: VITAMIN D3 (cholecalciferol) 50 MCG PO (07:59)
[2023-05-17] MEDS: NOVOLOG FLEXPEN 10 UNITS SC (08:01)
--- NOTE | 2023-05-17 11:37 | W.PN.HOSP.TC ---
Today's Communication/Plan
-
EEG
Add Nicardipine as BP not well controlled.
PT OT
SNF
Assessment / Plan
Assessment / Plan
HPI: 77-year-old female past medical history of ESRD on hemodialysis Tuesday, Tuesday, Tuesday, atrial fibrillation on Eliquis, CAD with stents, anemia of chronic disease, type 2 diabetes, hypertension, hyperlipidemia, sarcoidosis, probable
cirrhosis, anxiety, GERD, presented with multiple falls and generalized weakness.
She has been falling off the bed and falling off her wheelchair. On DOA, while trying to get into wheelchair to go to dialysis she fell and therefore was unable to get to dialysis. Daughters have also noticed that patient has been having some
altered mental status and expressions are a bit unusual.
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 She has chronic blurred vision. No recent changes to medications. Patient had a similar episode 2 years ago and was evaluated and diagnosed with TIA prior to being on Eliquis.
Patient has chronic weakness of the left upper extremity due to the AV fistula status post bypass. She has some chronic tingling in her left hand which is stable. Did notice that patient's been more weak in the left hand over the past few days.
Daughter is also noted some intermittent slurring of speech.
CVS: S1-S2 normal
Chest: CTA B/L
Abdomen: Soft, NT / Bowel sounds present
Extremities: No edema, normal pulses
COMPUTER PROGRAMMING SUPERVISOR: No facial droop
A/P:
# Generalized weakness with altered mental status and mechanical fall; unclear cause, acute stroke was ruled out on MRI
# Slurred speech
No focal neurological deficits on examination apart from decreased strength of the left upper extremity which is likely chronic due to complications from fistula
CT head shows no acute intracranial abnormality
Carotid ultrasound shows less than 50% bilateral internal carotid artery stenosis
urinalysis with few bacteriuria, since pt c/o urinary frequency can start empiric ceftriaxone to cover for UTI
blood cultures negative
Hold gabapentin,
MRI brain negative for acute stroke but noted white matter disease of frontal and parietal lobes which is likely chronic
Severe WM Leukoaraiosis - ? Cognitive dysfunction at baseline? never diagnosed?
PT OT recc SNF
Diet recommends to advance as tolerated. But pt wants IDDSI 6
Neurology recommends OP neurosurgery follow-up.
Discussed with the patient's daughter regarding meningioma.
EEG-ordered, being done today
Daughter feels that patient is much better,
Pt AAO3, but thinks she was in a different room yesterday.
# Hypertensive urgency secondary to missed dialysis session on DOA
Cont ASSEMBLY MACHINE SET UP MECHANIC Coreg
Added Nifedipine 30 mg
D/W Renal also
# ESRD on hemodialysis , ,
# Mild Hyperkalemia secondary to missed dialysis, resolved
# Acute on chronic hyponatremia
Renal on board for HD need
Continue Bumex
Continue sevelamer
# Paroxysmal atrial fibrillation-Eliquis, Coreg
# CAD status post stents
Continue Coreg
Continue Eliquis
# Anemia of chronic disease
Hemoglobin stable
# IDDM
# Hyperglycemia on admission
Increased ASSEMBLY MACHINE SET UP MECHANIC Levemir to 30 units HS, added Aspart 9 units AC
A1C 10.2 %
Insulin sliding scale
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
Arterial steal syndrome, status post DRIL procedure involving left upper extremity.
Hold gabapentin
# Hyperlipidemia
Continue statin
# Sarcoidosis-pulmonary- diagnosed -No Biopsy
Calcified mediastinal adenopathy, last CT imaging 2021
# Moderate discogenic degenerative disease at C3/C4 and severe discogenic degenerative disease at C4/C5 with loss of intervertebral disc space height and vertebral body endplate osteophytes
# History of left lumpectomy 2016
# Anxiety-Ativan restarted by neuro
# GERD
Continue Protonix
# Hysterectomy with early stage uterine cancer
# History of frontal meningioma on imaging, stable
# Spinal stenosis/arthritis
# Obesity per BMI
# Ex-smoker
#Full code
#DVT prophylaxis Eliquis
D/W Neurology
Discussed with patient's daughter on the phone and patient's at bedside
Daughter requests a call from Neuro- Passed on
Anticipated Discharge: Within 24 hours
Subjective/Interval History
-
Date of Service: May 17, 2023
Objective Data
-
Labs:
Laboratory Results
05/17/23
11:34
WBC Pending
Hgb Pending
Hct Pending
Plt Count Pending
Vital Signs:
Vital Signs
Temp Pulse Resp BP Pulse Ox
98.1 F 56 17 173/65 98
05/17/23 10:45 05/17/23 10:45 05/17/23 10:45 05/17/23 10:45 05/17/23 10:45
I&O
05/16/23 05/17/23 05/18/23
06:59 06:59 06:59
Intake Total 360 / 360 1200 / 1200
Balance 360 / 360 1200 / 1200
[2023-05-17 11:54] LABS: Glucose - Point of Care 134 mg/dl (70-99)
[2023-05-17] MEDS: NOVOLOG FLEXPEN SC (12:02)
[2023-05-17] MEDS: PROCARDIA XL (EXTENDED RELEASE) 30 MG PO (12:03)
[2023-05-17] MEDS: ROCEPHIN 1000 MG IV (12:04)
[2023-05-17] MEDS: STERILE WATER FOR INJECTION 10 ML IV (12:04)
--- NOTE | 2023-05-17 12:04 | EEG.RPT ---
Electroencephalogram Report
Recording
Date of EE05/17/23
Type of EEG: Routine
Length of EEG recordin minutes
Done with Video Recording: Yes
Patient Status: Inpatient
Recording Conditions: Awake and Drowsy
Hyperventilation Performed: No
Photic Stimulation Performed: Yes
Report
LESS THAN 1 HOUR EEG INTERPRETATION:
Unremarkable EEG for age
CLINICAL CORRELATION:
A normal EEG does not rule out a diagnosis of epilepsy. If clinical suspicion for seizure persists, a prolonged recording may be warranted.
Clinical correlation is advised.
METHODS:
A 21 channel digitized electroencephalogram (EEG) was performed using the 10/20 international system of electrode placement and one-lead of ECG recorded. The [employer] quantitative EEG system was utilized.
ELECTROENCEPHALOGRAPHER IMPRESSION(S):
Quality of study
Good
Background
There was an unremarkable anterior-posterior voltage gradient of alpha frequency.
With eye opening the background activity changed to a low voltage mixture of frequencies.
There were no significant asymmetries of background activity noted.
Sleep
Drowsiness present
Hyperventilation
No activation
Photic Stimulation
No activation
ECG
Normal sinus rhythm
[2023-05-17] MEDS: NOVOLOG FLEXPEN 9 UNITS SC ×2 (12:05→17:07)
[2023-05-17 12:09] LABS: Hematocrit 32.2 % (37.0-47.0); Hemoglobin 11.3 g/dL (12.0-16.0); Mean Corp Hgb Conc. 35.1 g/dL (33.0-37.0); Mean Corpuscular Volume 88.2 fL (81.0-99.0); Mean Platelet Volume 9.7 fL (7.4-10.4); Platelet Count 169 10^3/uL (130-400); Red Blood Cell Count 3.65 10^6/uL (4.20-5.40); Red Cell Dist. Width 14.4 % (11.5-14.5); White Blood Cell Count 6.6 10^3/uL (4.8-10.8)
--- NOTE | 2023-05-17 13:06 | W.PN.NEPH.PH ---
Today's Communication / Plan
-
- HD tomorrow
- added nifedipine for hypertension
Assessment/Plan
-
Impression:
Change of mental status/falls
Meningioma
End-stage renal disease Tuesday
Hypertension
Left upper extremity AV
Coronary artery disease with prior history of stent
Hyperkalemia
Diabetes
Atrial fibrillation
Plan:
Left UE and left face drop continues, MRI neg stroke but had meningioma, neuro follows
AMS improving , seems to be close to baseline
BP are labile, follow orthostatics, continue coreg, added nifedipine today
chronically high BP pre HD and drops after HD, high fluid gains in out pt
Maintain phosphate binders with meals for hyperphosphatemia
renal diet and FR
-
-
Date of Service: May 17, 2023
CC / HPI / ROS
-
Chief Complaint:
ESRD
History of Present Illness:
tolerated HD 05/15
BP labile, no fever
k normal
Review of Systems:
no cp or sob
still weak of left UE and speech improving
Labs
-
Labs:
WBC 6.6 10^3/uL (4.8-10.8) 05/17/23 11:58
RBC 3.65 10^6/uL (4.20-5.40) L 05/17/23 11:58
Hgb 11.3 g/dL (12.0-16.0) L 05/17/23 11:58
Hct 32.2 % (37.0-47.0) L 05/17/23 11:58
Plt Count 169 10^3/uL (130-400) 05/17/23 11:58
Sodium 128 mmol/L (135-145) L 05/16/23 05:44
Potassium 4.3 mmol/L (3.5-5.1) 05/16/23 05:44
Chloride 91 mmol/L (98-107) L 05/16/23 05:44
Carbon Dioxide 27 mmol/L (22-30) 05/16/23 05:44
BUN 55 mg/dl (7-17) H 05/16/23 05:44
Creatinine 8.8 mg/dL (0.6-1.0) H* 05/16/23 05:44
eGFR 4.29 05/16/23 05:44
Glucose 143 mg/dl (70-99) H 05/16/23 05:44
Calcium 9.1 mg/dl (8.4-10.2) 05/16/23 05:44
Albumin 4.0 g/dl (3.5-5.0) 05/14/23 07:32
Physical Exam
-
Vital Signs:
Vital Signs
Temp Pulse Resp BP Pulse Ox
98.1 F 56 17 173/65 98
05/17/23 10:45 05/17/23 10:45 05/17/23 10:45 05/17/23 10:45 05/17/23 10:45
Cardiovascular:: Regular rate and rhythm
Respiratory:: Bilateral: CTA
Lung Excursion:: Normal
Abdomen:: Nontender and Soft
Bowel Sounds:: Normal
Extremity Edema:: None: Bilateral:
Romero Catheter: No
--- NOTE | 2023-05-17 14:41 | CON.GI ---
Consultation
-
Date/Time Consultation Requested: 05/17/2023
Date/Time Consultation Performed: 05/17/2023
Requesting Provider: Dr. Nicolas
Performing Provider: Dr. Keller
Reason for Consultation: History of stricture, vomiting
Medical History
Chief Complaint / HPI
Chief Complaint: Weakness
History of Present Illness:
Mariaelena is a 77-year-old female with multiple medical issues including end-stage renal disease on hemodialysis Tuesday, atrial fibrillation on Eliquis, CAD with stents, anemia of chronic disease, diabetes, pulmonary sarcoidosis, GERD
controlled on outpatient pantoprazole who presents for admission on 05/13/2023 for falls and weakness.
She has been seen by multiple specialties. Diagnosed with uncontrolled diabetes, B12 deficiency and has had a neurologic workup. She does feel better and is more stable on her feet. A couple of days ago she was eating a solid piece of chicken
which felt stuck and she gagged and forced regurgitated it out. She has persistent hiccups. She denies any heartburn and has not had heartburn in years since starting a PPI. She states she had an endoscopy years ago and was dilated at that time.
She has lost a few pounds according to her . She denies any dysphagia prior to that piece of chicken. Since then she has been on a solid diet and has been eating well.
Denies any nausea or vomiting. No abdominal pain, diarrhea, constipation or rectal bleeding.
She is not known to our GI practice.
Past Medical History
Past Medical History: Other (end-stage renal disease on hemodialysis Tuesday, atrial fibrillation on Eliquis, CAD with stents, anemia of chronic disease, diabetes, pulmonary sarcoidosis, questionable cirrhosis, GERD)
Past Surgical History: Other (PCI, dialysis catheter placement)
Social History
Tobacco: Non-Smoker
Alcohol: None
Drug: None
Family History
Family History: Reviewed & Not Pertinent
Allergies / Home Medications
Allergy/AdvReac Type Severity Reaction Status Date / Time
Iodinated Contrast Media Allergy Hives/RASH Verified 05/13/23 12:19
[Iodinated Contrast- Oral
and IV Dye]
�Medication �Instructions �Recorded
lorazepam 1 mg tablet 1 mg PO DAILY anxiety 07/27/21
pantoprazole 40 mg tablet,delayed 40 mg PO DAILY Gastrointestinal 07/27/21
release issue
bumetanide 1 mg tablet 1 mg PO DAILY Fluid 07/01/22
Retention/Swelling
insulin detemir U-100 100 unit/mL 20 unit SC HS Diabetes 07/01/22
(3 mL) subcutaneous pen (Levemir
FlexPen)
lactobacillus combination no.4 3 3,000 mmu cells PO DAILY 07/01/22
billion cell capsule (Probiotic) Gastrointestinal Issue
sevelamer HCl 800 mg tablet 800 mg PO MEALS Kidney Disease 07/30/22
apixaban 5 mg tablet (Eliquis) 5 mg PO BID #60 tabs 08/16/22
carvedilol 6.25 mg tablet 6.25 mg PO BID Blood Pressure 03/09/23
cholecalciferol (vitamin D3) 50 50 mcg PO DAILY Supplement 03/09/23
mcg (2,000 unit) tablet (Vitamin
D3)
atorvastatin 80 mg tablet 80 mg PO QPM High Cholesterol 05/13/23
gabapentin 100 mg capsule 100 mg PO TID Pain 05/13/23
Review of Systems
Vital Signs
Temp Pulse Resp BP Pulse Ox
98.1 F 56 17 173/65 98
05/17/23 10:45 05/17/23 10:45 05/17/23 10:45 05/17/23 10:45 05/17/23 10:45
Physical Exam
Exam
General: No Apparent Distress and Comfortable
HEENT: Normocephalic and Anicteric
Cardiac: S1/S2
GI: Soft and Non Tender
Neuro: AO x 3
Results
WBC 6.6 10^3/uL (4.8-10.8) 05/17/23 11:58
Hgb 11.3 g/dL (12.0-16.0) L 05/17/23 11:58
Hct 32.2 % (37.0-47.0) L 05/17/23 11:58
MCV 88.2 fL (81.0-99.0) 05/17/23 11:58
Plt Count 169 10^3/uL (130-400) 05/17/23 11:58
Absolute Neuts (auto) 3.5 10^3/uL (1.4-6.5) 05/14/23 07:32
Sodium 128 mmol/L (135-145) L 05/16/23 05:44
Potassium 4.3 mmol/L (3.5-5.1) 05/16/23 05:44
Chloride 91 mmol/L (98-107) L 05/16/23 05:44
Carbon Dioxide 27 mmol/L (22-30) 05/16/23 05:44
BUN 55 mg/dl (7-17) H 05/16/23 05:44
Creatinine 8.8 mg/dL (0.6-1.0) H* 05/16/23 05:44
Calcium 9.1 mg/dl (8.4-10.2) 05/16/23 05:44
Total Bilirubin 1.3 mg/dl (0.2-1.3) 05/14/23 07:32
AST 18 U/L (14-36) 05/14/23 07:32
ALT 15 U/L (0-35) 05/14/23 07:32
Alkaline Phosphatase 81 U/L (38-126) 05/14/23 07:32
Diagnostic Image Results:
MRI of the brain
Prior GI Procedures: None he endorses sound
EGD:
Colonoscopy:
Assessment / Plan
-
Mariaelena is a 77-year-old female with history of dialysis on Tuesday, atrial fibrillation on Eliquis, CAD with stents, anemia of chronic disease, type 2 diabetes uncontrolled with an A1c over 10, pulmonary sarcoidosis, controlled GERD on
40 mg pantoprazole who comes in with multiple falls and generalized weakness with no significant findings other than B12 deficiency, uncontrolled diabetes
# Dysphagia to solid chicken occurred 1 time where she forced regurgitated it out -
Currently tolerating soft solids without issue
No heartburn on pantoprazole which she takes as an outpatient
Does have persistent hiccups
we will check an esophagram in the morning And determine if patient needs endoscopy which if she needs dilation will need to be off Eliquis
Total Time Spent with Patient (in minutes): 15
Data Reviewed
-
Old Records: Reviewed
-
-
Thank you for consultation and allowing me to participate in the patient's care. Please call the production engineer GI physician during the after hours with any questions or concerns.
[2023-05-17 16:25] LABS: Glucose - Point of Care 102 mg/dl (70-99)
[2023-05-17 16:40] LABS: Syphilis/T. pallidum Ab Reflex Negative (Negative)
[2023-05-17] MEDS: LIPITOR 80 MG PO (17:07)
[2023-05-17 21:59] LABS: Glucose - Point of Care 99 mg/dl (70-99)
[2023-05-17] MEDS: SENOKOT 17.1999999999999993 MG PO (22:02)
[2023-05-17] MEDS: LEVEMIR 0.299999999999999989 UNITS SC (22:02)
[2023-05-18] VITALS (7 sets, daily range): BP systolic 92–154; BP diastolic 49–76; BMI 35.8
[2023-05-18] MEDS: ATIVAN 0.5 MG PO (01:36)
--- NOTE | 2023-05-18 01:44 | PTCARENOTE ---
Pt stated to this RN she sees 'people walking around the room' and ' ocasio everywhere'. Pt getting agitated and yelling that she wants security in the room because 'there are people coming out of the ceiling'. Pt stated 'I called the police
but they did not answer'. PETE Barnes notified about hallucinations and agitation. Ativan 0.5mg PO ordered. Pt cooperative and was able to take med. Bed alarm on, call galeas within reach, and plan of care ongoing.
[2023-05-18 06:30] LABS: Blood Urea Nitrogen 56 mg/dl (7-17); Calcium 8.8 mg/dl (8.4-10.2); Carbon Dioxide 28 mmol/L (22-30); Chloride 90 mmol/L (98-107); Estimated Creatinine Clearance 7 ml/min; Glucose 71 mg/dl (70-99); Potassium 3.9 mmol/L (3.5-5.1); Sodium 128 mmol/L (135-145); eGFR 4.89
[2023-05-18] MEDS: VITAMIN B1 100 MG PO (08:06)
[2023-05-18] MEDS: VITAMIN D3 (cholecalciferol) 50 MCG PO (08:06)
[2023-05-18] MEDS: BUMEX 1 MG PO (08:06)
[2023-05-18] MEDS: PROTONIX 40 MG PO (08:06)
[2023-05-18] MEDS: VITAMIN B-12 1000 MCG PO (08:06)
[2023-05-18] MEDS: VISBIOME 1 CAP PO (08:06)
[2023-05-18] MEDS: RENVELA 800 MG PO ×3 (08:06→17:34)
[2023-05-18] MEDS: ATIVAN 1 MG PO (08:06)
[2023-05-18] MEDS: PROCARDIA XL (EXTENDED RELEASE) PO (08:07)
[2023-05-18] MEDS: COREG PO (08:07)
[2023-05-18] MEDS: ELIQUIS 5 MG PO ×2 (08:09→21:33)
[2023-05-18 08:41] LABS: Glucose - Point of Care 80 mg/dl (70-99)
[2023-05-18] MEDS: NOVOLOG FLEXPEN SC (09:04)
[2023-05-18] MEDS: NOVOLOG FLEXPEN-LOW RESISTANCE SC ×3 (09:05→17:38)
--- NOTE | 2023-05-18 09:18 | W.PN.GI.CBS2 ---
Addendum entered and electronically signed by Tanika Keller DO 05/18/23 14:05:
Patient seen and examined independently of DIRECTOR MARKET INTELLIGENCE. I agree with her note with my additions below
Patient has had no further dysphagia or issues with swallowing. No further hiccups or belching.
She is refusing the esophagram.
No further testing per GI. Please call us back if she has any issues. Will sign off
Addendum entered and electronically signed by Cecy Keys NP 05/18/23 11:27:
Per nursing the patient declined esophagram. Will restart diet.
Original Note:
Today's Communication / Plan
-
Esophagram this morning. Diet after. Possible EGD if needed pending esophagram. Continue PPI.
Assessment / Plan
-
The patient is a 77-year-old female with a past medical history significant for end-stage renal disease on hemodialysis, atrial fibrillation on Eliquis, CAD with history of stents, anemia of chronic disease, DM2, pulmonary sarcoidosis, chronic GERD
on PPI, who presented to the emergency room with falls and generalized weakness. There is also report of some altered mental status as well. CT of the head showed no acute intracranial abnormalities and had no focal neurological deficits on exam.
She is undergoing management by the medical team for this. She has been getting dialysis throughout her admission and is on a Tuesday schedule. She was reported to have an episode of dysphagia with chicken and GI was asked to
evaluate. She is on chronic PPI for history of GERD which is controlled. Noted with hemoglobin A1c greater than 10 secondary to uncontrolled diabetes. She is pending an esophagram this morning.
Problem list/recommendations:
# Dysphagia to solid chicken occurred 1 time where she forced regurgitated it out:
-Esophagram pending this morning, will make n.p.o. for the procedure she did not eat this morning. Patient noted that she was unsure why she needed this but I did reinforce education and explained to her that we need to rule out any esophageal
abnormalities with her episode of choking.
-Diet after pending esophagram, was tolerating her diet with soft foods without problems
-Continue PPI daily
-No significant hiccups or belching during exam
-Pending esophagram, to consider endoscopy if any evidence of narrowing or stricture that would require dilation. Noted that she is on Eliquis and this would need to be held.
-If she needs an EGD would need to arrange this around her dialysis
-Will follow
Subjective
Subjective
Date of Service: May 18, 2023
The patient was seen and examined at the bedside. She offers no complaints. Pending esophagram this morning. She reports that she does not know why she needs this test done. She is pending dialysis later today.
Objective
Data Reviewed
Laboratory Data:
Laboratory Results
05/17/23 11:58
05/18/23 05:39
Laboratory Results
Magnesium 1.7 mg/dl (1.6-2.3) 05/15/23 06:34
Total Bilirubin 1.3 mg/dl (0.2-1.3) 05/14/23 07:32
AST 18 U/L (14-36) 05/14/23 07:32
ALT 15 U/L (0-35) 05/14/23 07:32
Alkaline Phosphatase 81 U/L (38-126) 05/14/23 07:32
Vital Signs and I&O:
Vital Signs
Temp Pulse Resp BP Pulse Ox
97.2 F 56 16 92/52 95
05/18/23 07:00 05/18/23 08:06 05/18/23 07:00 05/18/23 08:07 05/18/23 08:16
I&O
05/17/23 05/18/23 05/19/23
06:59 06:59 06:59
Intake Total 1200 / 1200 1080 / 1080
Balance 1200 / 1200 1080 / 1080
Physical Exam
Physical Exam
HEENT: Anicteric
Cardiology: S1 and S2 (Regular rate/rhythm)
Pulmonary: Clear
GI: Soft, Non Distended, Non Tender, Normal Bowel Sounds and Other (Obese abdomen)
[2023-05-18] MEDS: EMLA CREAM 5 GRAM TOPICAL (11:09)
[2023-05-18 11:16] LABS: Glucose - Point of Care 84 mg/dl (70-99)
[2023-05-18] MEDS: NOVOLOG FLEXPEN 9 UNITS SC (11:19)
[2023-05-18] MEDS: ROCEPHIN 1000 MG IV (11:43)
[2023-05-18] MEDS: STERILE WATER FOR INJECTION 10 ML IV (11:44)
--- NOTE | 2023-05-18 14:05 | W.PN.UPDATE ---
Update Note
Progress Note Update
for billing purposes only
--- NOTE | 2023-05-18 14:05 | CM ---
Reviewed the chart notes and spoke with the patient at the bedside. The patient resides with her spouse in a one story home with two steps to enter. The patient has a rolling walker, wheelchair, shower chair and rails. The patient has had [facility]
in the past, but no SNF. The patient received HD M[facility]W-F at [facility]. The patient confirmed her pharmacy of choice is [place]. CM continues to be available to patient/family and is monitoring medical plan for needs at discharge.
Plan: Discharge plans will depend on the patient's progress.
--- NOTE | 2023-05-18 14:23 | W.PN.HOSP.TC ---
Addendum entered and electronically signed by Benjamin Nicolas MD 05/18/23 14:36:
Spoke to daughter Miriam.
Updated patient's condition.
She stated that patient's confusion came on rather quickly .
She confirms that the patient has been on Ativan for several years.
Original Note:
Today's Communication/Plan
-
Patient refused esophagram
I have requested neurology to kindly reevaluate and also psychiatry evaluation today
Pharmacy review medicines to see if any of this could be causing.
Could Ativan be contributing.?
If she have cognitive dysfunction at baseline given the MRI findings.?
Assessment / Plan
Assessment / Plan
HPI: 77-year-old female past medical history of ESRD on hemodialysis Tuesday, Tuesday, Tuesday, atrial fibrillation on Eliquis, CAD with stents, anemia of chronic disease, type 2 diabetes, hypertension, hyperlipidemia, sarcoidosis, probable
cirrhosis, anxiety, GERD, presented with multiple falls and generalized weakness.
She has been falling off the bed and falling off her wheelchair. On DOA, while trying to get into wheelchair to go to dialysis she fell and therefore was unable to get to dialysis. Daughters have also noticed that patient has been having some
altered mental status and expressions are a bit unusual.
2 days PT SKILLED, she had an episode of visually hallucinating a pot of ocasio. She has chronic blurred vision. No recent changes to medications. Patient had a similar episode 2 years ago and was evaluated and diagnosed with TIA prior to being on Eliquis.
Patient has chronic weakness of the left upper extremity due to the AV fistula status post bypass. She has some chronic tingling in her left hand which is stable. Did notice that patient's been more weak in the left hand over the past few days.
Daughter is also noted some intermittent slurring of speech.
CVS: S1-S2 normal
Chest: CTA B/L
Abdomen: Soft, NT / Bowel sounds present
Extremities: No edema, normal pulses
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
Patient had an episode where she saw [employer] decorations and also a couple getting . She was very reviewed in the description of the fely with the right baseball cap. She called the nurse into the room and also call the optical effects camera operator for help.
Patient is not willing to accept that this is hallucination that she had.
A/P:
# Generalized weakness with altered mental status and mechanical fall; unclear cause, acute stroke was ruled out on MRI
# Slurred speech
No focal neurological deficits on examination apart from decreased strength of the left upper extremity which is likely chronic due to complications from fistula
CT head shows no acute intracranial abnormality
Carotid ultrasound shows less than 50% bilateral internal carotid artery stenosis
urinalysis with few bacteriuria, since pt c/o urinary frequency can start empiric ceftriaxone to cover for UTI
blood cultures negative
Holding gabapentin,
MRI brain negative for acute stroke but noted white matter disease of frontal and parietal lobes which is likely chronic
Severe WM Leukoaraiosis - ? Cognitive dysfunction at baseline? never diagnosed?
PT OT recc SNF
Diet recommends to advance as tolerated. But pt wants IDDSI 6
Neurology recommends OP neurosurgery follow-up.
Discussed with the patient's daughter regarding meningioma.
EEG-no SEizures per Neuro
Unclear if Ativan may be also contributing to her symptoms however was restarted by neurology
# Hypertensive urgency secondary to missed dialysis session on DOA
Cont PT SKILLED Coreg
Added Nifedipine 30 mg yesterday however blood pressure was low therefore held today.
# ESRD on hemodialysis M, W, F
# Mild Hyperkalemia secondary to missed dialysis, resolved
# Acute on chronic hyponatremia
Renal on board for HD need
Continue Bumex
Continue sevelamer
# Dysphagia-GI consulted per family request. Patient refused esophagram today.
# Paroxysmal atrial fibrillation-Eliquis, Coreg
# CAD status post stents
Continue Coreg
Continue Eliquis
# Anemia of chronic disease
Hemoglobin stable
# IDDM
# Hyperglycemia on admission
Increased PT SKILLED Levemir to 30 units HS, added Aspart 7 units AC
A1C 10.2 %
Insulin sliding scale
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
Arterial steal syndrome, status post DRIL procedure involving left upper extremity.
Hold gabapentin
# Hyperlipidemia
Continue statin
# Sarcoidosis-pulmonary- diagnosed -No Biopsy
Calcified mediastinal adenopathy, last CT imaging 2021
# Moderate discogenic degenerative disease at C3/C4 and severe discogenic degenerative disease at C4/C5 with loss of intervertebral disc space height and vertebral body endplate osteophytes
# History of left lumpectomy 2016
# Anxiety-Ativan restarted by neuro
# GERD
Continue Protonix
# Hysterectomy with early stage uterine cancer
# History of frontal meningioma on imaging, stable
# Spinal stenosis/arthritis
# Obesity per BMI
# Ex-smoker
#Full code
#DVT prophylaxis Eliquis
Discussed with dialysis nurse at bedside
Discussed with psychiatry
Discussed with pharmacy to review medicines to see if any of this can cause visual hallucination
Also requested neurology to reevaluate
Anticipated Discharge: 24 - 48 hours
Subjective/Interval History
-
Date of Service: May 18, 2023
Objective Data
-
Labs:
Laboratory Results
05/18/23
05:39
Sodium 128 L
Potassium 3.9
Chloride 90 L
Carbon Dioxide 28
BUN 56 H
Creatinine 7.9 H*
Glucose 71
Calcium 8.8
Vital Signs:
Vital Signs
Temp Pulse Resp BP Pulse Ox
97.2 F 56 17 120/74 95
05/18/23 11:00 05/18/23 11:00 05/18/23 11:00 05/18/23 11:00 05/18/23 11:00
I&O
05/17/23 05/18/23 05/19/23
06:59 06:59 06:59
Intake Total 1200 / 1200 1080 / 1080
Balance 1200 / 1200 1080 / 1080
--- NOTE | 2023-05-18 14:55 | CON.MD ---
Consultation - Medical
-
patient seen chart reviewed. discussed w nursing and with dr laurent. the patient is a 77 year old woman with end stage kidney disease who is on dialyisis [facility]wf. consult ordered for c.o visual hallucinations. the patient had similar complaint of
seeing things about two years ago which was attributed to tia now on anticoagulants. she initially was not happy to see psychiatry but became pleasant and was very cooperative when we talked. the patient described in graphic detail seeing men in
her room last night bringing in large pieces of furniture. she does not see them at this moment and acknowledges there were only three other people in the room (me the dialysis nurse and her . ) she denies any psych hx other than anxiety for
which she takes ativan one mg daily for anxiety. she reports a good appetite. she enjoys her grandchildren. she says she has a good memory and her family marvels at how she remembers things ( i did not do formal memory testing but she was fully
oriented and new tuesday was the eclipse etc and seemed to answer all my questions about her life and family without hesitation).
past psych hx one
medical hx patient has many chronic medical illnesses including ckd as above cad htn hld niddm she has visual issues in right eye ('chronically blurred vision') she has had cataract surgery in both eyes hx neuropathy noted as being secondary to
dialysis fistula but noted cervical radiculopathy on imaging. the patient has hx arrhythmia on anticoags also vit b12 def thiamine and b12 being repleted. she has seen neuro and has hx meningioma in the rt fronal lobe serum sodium 128 mild anemia
11.3 buncr elevated
fh adopted does not know
substance abuse denied
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
mse alert ox3 speech and thought process is normal. affect is normal mood is euthymic she is not suicidal. outside of the visual hallucinations no overt psychosis aver intelligence insight and judgment at this moment is okay
dx visual hallucinations likely related to transient episodes of delirium
recommendations typically visual hallucinations in the absence of a psych hx are not primarily psychiatric. her hallucinations are very vivid when they happen and detailed which is not atypical. she has many reasons for these hallucinations which
she believes are real including many chronic medical illnesses and visual problems. likely multifactorial. antipsychotics typically do not help but rather addressing the underlying illness. in any case she does NOT want any psych meds other than
ativan. re ativan would use the lowest dose possible as this could be contributing to falls. told her i would come back tomorrow to talk with her and see how the evening and night go. added that when he was in hosp for surgery he was seeing
things on the night he was operated upon; adding this i think to comfort and reassure his .
[2023-05-18 16:46] LABS: Glucose - Point of Care 80 mg/dl (70-99)
--- NOTE | 2023-05-18 17:01 | W.PN.NEPH.HD ---
Assessment
-
pt seen during HD
vitals stable
AVF functions well
MS seem baseline
no CVA on MRI but changes noted concern of cognitive issues baseline though not apparent at HD unit
Note her BP significantly high at HD unit and usually improves post HD, she does have high wt gains too
strict renal diet and FR
Progress Note - Hemodialysis
-
Date of Service: May 18, 2023
Duration: 30 minutes and 3 hours
Potassium Bath: 3
Calcium Bath: 2.5
Opti-Dialyzer: 160
Ultrafiltration: Other (1.5-2kg)
Blood Flow: 400
Dialysate Flow: 600
Heparin: no
EPO: no
[2023-05-18] MEDS: NOVOLOG FLEXPEN 7 UNITS SC (17:33)
[2023-05-18] MEDS: LIPITOR 80 MG PO (17:34)
[2023-05-18 21:23] LABS: Glucose - Point of Care 103 mg/dl (70-99)
[2023-05-18] MEDS: COREG 6.25 MG PO (21:33)
[2023-05-18] MEDS: LEVEMIR 0.299999999999999989 UNITS SC (21:33)
[2023-05-18] MEDS: SENOKOT 17.1999999999999993 MG PO (21:33)
[2023-05-19 03:34] VITALS: BP 111/52
[2023-05-19] MEDS: TYLENOL 650 MG PO ×2 (05:46→16:44)
[2023-05-19 06:00] VITALS: BMI 35.1
[2023-05-19 07:00] VITALS: BP 153/74
--- NOTE | 2023-05-19 07:46 | W.PN.NEURO.1 ---
Today's Communication / Plan
-
-Would not pursue any type of antipsychotics
-Minimize benzodiazepines
-Consideration for further cognitive testing as outpatient
-Continue Eliquis for atrial fibrillation
Call with questions and concerns
Neuro Assessment/Plan
Assessment
MRI of brain findings included white matter ischemic disease as well as 1.5 cm MENINGIOMA superior to the right frontal lobe causing mild mass effect which appears unchanged.
Abrupt onset of worsening gait and speech change
Occasional visual hallucinations
History of TIA
Brain MRI shows significant ischemic white matter disease
Asymptomatic right frontal meningioma
Visual hallucinations could be related to 1) chronic vision problems that can produce some visual hallucinations (partial Lenin Bonnet syndrome) 2) Delirium given ESRD on HD will give easy tendency towards delirium and metabolic disturbance 3)
Benzodiazepine use likely contributing 4) Contribution by vascular disease of the brain seen on MRI brain
-Examination is not supportive of Parkinsonism or Lewy Body dementia which can have visual hallucinations
-Not appearing at all like a primary psychiatric problem
-While the significant white matter disease can cause mild cognitive impairment I do not see that the patient has significant cognitive issues that would warrant any diagnosis of dementia
Subjective/Objective
Subjective Data
Date of Service: May 19, 2023
No complaints at this time, would like to go home, endorses some chronic vision issues, says she has some occasional geometric patterns in vision. Says she had a TIA with word abnormalities and was given tPA and fully improved. She denies any
significant unusual visual problems or hallucinations to me at this time.
Objective Data
Vital Signs
Temp Pulse Resp BP Pulse Ox
97.8 F 59 20 111/52 96
05/19/23 03:34 05/19/23 03:34 05/19/23 03:34 05/19/23 03:34 05/19/23 03:34
Lab Results
05/17/23 11:58
05/18/23 05:39
Sodium 128 mmol/L (135-145) L 05/18/23 05:39
Potassium 3.9 mmol/L (3.5-5.1) 05/18/23 05:39
BUN 56 mg/dl (7-17) H 05/18/23 05:39
Glucose 71 mg/dl (70-99) 05/18/23 05:39
Calcium 8.8 mg/dl (8.4-10.2) 05/18/23 05:39
Vitamin B12 339 pg/ml (239-931) 05/15/23 06:34
Patient Allergies
Iodinated Contrast Media [Iodinated Contrast- Oral and IV Dye] Allergy (Verified 05/13/23 12:19)
Hives/RASH
Review of Systems
-
History Source: Patient
All other systems: Reviewed and negative
Constitutional: No Symptoms
EENT: No Symptoms Reported
Respiratory: No Symptoms
Cardiac: No Symptoms
Abdomen/GI: No Symptoms
Genitourinary: No Symptoms
Musculoskeletal: No Symptoms
Skin: No Symptoms
Neuro: See existing Neuro Note
Endocrine: No Symptoms
Hematologic / Lymphatic: No Symptoms
Allergy / Immunology: No Symptoms
Physical Exam
-
General: Well Nourished and Obese
Eyes: No Ptosis
HEENT: Normocephalic
Neck: No Bruits Bilaterally
Respiratory: Clear to Auscultation
Cardiac: Regular Rhythm
GI: Normal Bowel Sounds
Skin: Unremarkable
Extremities: No Clubbing
Psych: Intact Judgement/Insight; Negative Confused
Extended Neurological Exam
Mood & Affect: Mood Unremarkable and Affect Unremarkable
Attention Span & Concentration: Awake, Alert, Interactive and Other (Fully oriented, no aphasia, normal though process, no neglect)
Memory: Able to Recall
Tremor: Hand Tremor Absent
Involuntary Movement: None
Speech: Quality Unremarkable and Quantity Unremarkable; Negative Expressive Aphasia, Receptive Aphasia or Dysarthric
Cranial Nerve II: Left Eye: Pupillary Reactivity Unremarkable, Pupillary Size Unremarkable and Other (Vision 20/30 in OD and OS and with both eyes)
Cranial Nerve II: Right Eye: Pupillary Reactivity Unremarkable, Pupillary Size Unremarkable and Other (Vision 20/30 in OD and OS and with both eyes)
Cranial Nerves III, IV, : Extraocular Movement: Extraocular Movement Full in all Directions
Muscle Bulk & Tone: Other (No rigidity or parkinsonism or tremor)
Pronator Drift: No Drift in Upper Extremities
Deep Tendon Reflexes: Trace Throughout
Vibration Sensation: Unremarkable
Touch Sensation: Testing in Upper Extremities
Data Reviewed
-
CT Head: Report Reviewed and Image Reviewed
MRI Head: Report Reviewed and Image Reviewed
Labs: Report Reviewed
[2023-05-19 07:49] LABS: Glucose - Point of Care 72 mg/dl (70-99)
[2023-05-19] MEDS: NOVOLOG FLEXPEN-LOW RESISTANCE SC ×2 (08:01→16:48)
[2023-05-19] MEDS: RENVELA 800 MG PO ×3 (08:01→17:16)
[2023-05-19] MEDS: ELIQUIS 5 MG PO ×2 (08:01→20:02)
[2023-05-19] MEDS: VITAMIN D3 (cholecalciferol) 50 MCG PO (08:01)
[2023-05-19] MEDS: VITAMIN B1 100 MG PO (08:01)
[2023-05-19] MEDS: BUMEX 1 MG PO (08:01)
[2023-05-19] MEDS: PROTONIX 40 MG PO (08:01)
[2023-05-19] MEDS: VISBIOME 1 CAP PO (08:01)
[2023-05-19] MEDS: ATIVAN 1 MG PO (08:01)
[2023-05-19] MEDS: COREG 6.25 MG PO ×2 (08:02→20:00)
[2023-05-19] MEDS: VITAMIN B-12 1000 MCG PO (08:14)
[2023-05-19] MEDS: NOVOLOG FLEXPEN SC (08:35)
--- NOTE | 2023-05-19 10:28 | W.PN.HOSP.TC ---
Today's Communication/Plan
-
CXR
PT OT eval
Assessment / Plan
Assessment / Plan
HPI: 77-year-old female past medical history of ESRD on hemodialysis Tuesday, Tuesday, Tuesday, atrial fibrillation on Eliquis, CAD with stents, anemia of chronic disease, type 2 diabetes, hypertension, hyperlipidemia, sarcoidosis, probable
cirrhosis, anxiety, GERD, presented with multiple falls and generalized weakness.
She has been falling off the bed and falling off her wheelchair. On DOA, while trying to get into wheelchair to go to dialysis she fell and therefore was unable to get to dialysis. Daughters have also noticed that patient has been having some
altered mental status and expressions are a bit unusual.
2 days ASSOCIATE COUNSEL, she had an episode of visually hallucinating a pot of ocasio. She has chronic blurred vision. No recent changes to medications. Patient had a similar episode 2 years ago and was evaluated and diagnosed with TIA prior to being on Eliquis.
Patient has chronic weakness of the left upper extremity due to the AV fistula status post bypass. She has some chronic tingling in her left hand which is stable. Did notice that patient's been more weak in the left hand over the past few days.
Daughter is also noted some intermittent slurring of speech.
CVS: S1-S2 normal
Chest: CTA B/L
Abdomen: Soft, NT / Bowel sounds present
Extremities: No edema, normal pulses
STOREKEEPER HELPER: No facial droop, Conversant
Slept well last night per RN. Small periods of confusion.
A/P:
# Generalized weakness with altered mental status and mechanical fall; unclear cause, acute stroke was ruled out on MRI
# Slurred speech on admission
No focal neurological deficits on examination apart from decreased strength of the left upper extremity which is likely chronic due to complications from fistula
CT head shows no acute intracranial abnormality
Carotid ultrasound shows less than 50% bilateral internal carotid artery stenosis
urinalysis with few bacteriuria, since pt c/o urinary frequency can start empiric ceftriaxone to cover for UTI
blood cultures negative
Holding gabapentin,
MRI brain negative for acute stroke but noted white matter disease of frontal and parietal lobes which is likely chronic
Severe WM Leukoaraiosis - ? Cognitive dysfunction at baseline? never diagnosed?
PT OT recc SNF
Diet recommends to advance as tolerated. But pt wants IDDSI 6
Neurology recommends OP neurosurgery follow-up.
Discussed with the patient's daughter regarding meningioma.
EEG-no Seizures per Neuro
Unclear if Ativan may be also contributing to her symptoms however was restarted by neurology
Will reduce as Psyche, as well as I think that this may be adding on to her confusion.
# Hypertensive urgency secondary to missed dialysis session on DOA
Cont ASSOCIATE COUNSEL Coreg
Added Nifedipine 30 mg however blood pressure was low therefore stopped
# ESRD on hemodialysis M, W, F
# Mild Hyperkalemia secondary to missed dialysis, resolved
# Acute on chronic hyponatremia
Renal on board for HD need
Continue Bumex
Continue sevelamer
# Dysphagia-GI consulted per family request. Patient refused esophagram .
# Paroxysmal atrial fibrillation-Eliquis, Coreg
# CAD status post stents
Continue Coreg
Continue Eliquis
# Anemia of chronic disease
Hemoglobin stable
# IDDM
# Hyperglycemia on admission
Changed ASSOCIATE COUNSEL Levemir to 26 units HS
Stopped Novolog
A1C 10.2 %
Insulin sliding scale
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
Arterial steal syndrome, status post DRIL procedure involving left upper extremity.
Hold gabapentin
# Hyperlipidemia
Continue statin
# Sarcoidosis-pulmonary- diagnosed -No Biopsy
Calcified mediastinal adenopathy, last CT imaging 2021
# Moderate discogenic degenerative disease at C3/C4 and severe discogenic degenerative disease at C4/C5 with loss of intervertebral disc space height and vertebral body endplate osteophytes
# History of left lumpectomy 2016
# Anxiety-Ativan restarted by neuro
Cut back to 0.75 mg
(already got a dose today)
# GERD
Continue Protonix
# Hysterectomy with early stage uterine cancer
# History of frontal meningioma on imaging, stable
# Spinal stenosis/arthritis
# Obesity per BMI
# Ex-smoker
#Full code
#DVT prophylaxis Eliquis
Discussed with nurse
Detailed discussion with the patient's daughter. Reviewed about white matter changes in the MRI. Also about Ativan. Will start weaning Ativan to 0.75 mg and also reviewed with daughter about slowly weaning it off in the next several weeks as
outpatient. She also stated that patient has Vicodin, Lomotil at home which sometimes she mixes with her medications. Family is planning to look at her medications back and straighten it for her moving forward.
Also discussed about neuropsychiatric, neuro surgery evaluation as outpatient. They are aware that while she does not need to stay in the hospital she needs to complete the workup as outpatient.
Patient is refusing to go to rehab.
Will have PT evaluate again.
I would get a chest x-ray for completion sake.
If patient keeps refusing family may take her home after dialysis tomorrow.
Time spent 52 min
Anticipated Discharge: Within 24 hours
Subjective/Interval History
-
Date of Service: May 19, 2023
Objective Data
-
Vital Signs:
Vital Signs
Temp Pulse Resp BP Pulse Ox
98.0 F 57 16 153/72 97
05/19/23 07:00 05/19/23 07:00 05/19/23 07:00 05/19/23 08:01 05/19/23 09:07
I&O
05/18/23 05/19/23 05/20/23
06:59 06:59 06:59
Intake Total 1080 / 1080 320 / 320
Balance 1080 / 1080 320 / 320
[2023-05-19 11:00] VITALS: BP 146/51
--- NOTE | 2023-05-19 11:33 | W.PN.UPDATE ---
Update Note
Progress Note Update
patient seen chart reviewed. patient is pushing for dc today. she says she will feel much much better when she is home. she also told me she does NOT see things at home. at any rate today she seems to be in reasonable spirits. i don't feel she
needs psychotropics at this point psych will sign off.
[2023-05-19 12:23] LABS: Glucose - Point of Care 161 mg/dl (70-99)
[2023-05-19] MEDS: NOVOLOG FLEXPEN-LOW RESISTANCE 1 UNITS SC (13:07)
[2023-05-19] MEDS: ROCEPHIN 1000 MG IV (13:07)
[2023-05-19] MEDS: STERILE WATER FOR INJECTION 10 ML IV (13:07)
[2023-05-19 15:00] VITALS: BP 152/64
[2023-05-19 16:39] LABS: Glucose - Point of Care 99 mg/dl (70-99)
[2023-05-19] MEDS: LIPITOR 80 MG PO (17:16)
--- NOTE | 2023-05-19 18:34 | W.PN.NEPH.PH ---
Today's Communication / Plan
-
HD tomorrow
Assessment/Plan
-
Impression:
Change of mental status/falls
Meningioma
End-stage renal disease Tuesday
Hypertension
Left upper extremity AV
Coronary artery disease with prior history of stent
Hyperkalemia
Diabetes
Atrial fibrillation
Plan:
AMS improving , seems to be close to baseline
BP are labile, continue coreg
chronically high BP pre HD and drops after HD, high fluid gains in out pt
Maintain phosphate binders with meals for hyperphosphatemia
renal diet and FR
neuro follows, minimize benzo
adamant to go home
HD tomorrow
d/w family feels that she not completely back to baseline
-
-
Date of Service: May 19, 2023
CC / HPI / ROS
-
Chief Complaint:
ESRD
History of Present Illness:
tolerated HD 05/17
BP labile, no fever
sodium low 128
Review of Systems:
no cp or sob
mild weakness of left UE
Labs
-
Labs:
WBC 6.6 10^3/uL (4.8-10.8) 05/17/23 11:58
RBC 3.65 10^6/uL (4.20-5.40) L 05/17/23 11:58
Hgb 11.3 g/dL (12.0-16.0) L 05/17/23 11:58
Hct 32.2 % (37.0-47.0) L 05/17/23 11:58
Plt Count 169 10^3/uL (130-400) 05/17/23 11:58
Sodium 128 mmol/L (135-145) L 05/18/23 05:39
Potassium 3.9 mmol/L (3.5-5.1) 05/18/23 05:39
Chloride 90 mmol/L (98-107) L 05/18/23 05:39
Carbon Dioxide 28 mmol/L (22-30) 05/18/23 05:39
BUN 56 mg/dl (7-17) H 05/18/23 05:39
Creatinine 7.9 mg/dL (0.6-1.0) H* 05/18/23 05:39
eGFR 4.89 05/18/23 05:39
Glucose 71 mg/dl (70-99) 05/18/23 05:39
Calcium 8.8 mg/dl (8.4-10.2) 05/18/23 05:39
Albumin 4.0 g/dl (3.5-5.0) 05/14/23 07:32
Physical Exam
-
Vital Signs:
Vital Signs
Temp Pulse Resp BP Pulse Ox
97.6 F 54 16 152/64 97
05/19/23 15:00 05/19/23 15:00 05/19/23 15:00 05/19/23 15:00 05/19/23 15:00
Cardiovascular:: Regular rate and rhythm
Respiratory:: Bilateral: CTA
Lung Excursion:: Normal
Abdomen:: Nontender and Soft
Extremity Edema:: None: Bilateral:
Romero Catheter: No
[2023-05-19 19:37] VITALS: BP 184/79; BP 192/78; BP 223/82; PULSE 20; PULSE 65; PULSE 67
[2023-05-19 19:40] VITALS: BP 192/78
[2023-05-19 21:56] LABS: Glucose - Point of Care 147 mg/dl (70-99)
[2023-05-19] MEDS: SENOKOT 17.1999999999999993 MG PO (22:39)
[2023-05-19] MEDS: APRESOLINE 5 MG IV (22:40)
[2023-05-19] MEDS: LEVEMIR 0.260000000000000009 UNITS SC (22:40)
[2023-05-20 00:17] VITALS: BP 91/57
[2023-05-20] MEDS: TYLENOL 650 MG PO ×2 (00:41→09:54)
[2023-05-20 03:50] VITALS: BP 147/85
[2023-05-20 06:00] VITALS: BMI 35.3
[2023-05-20] MEDS: EMLA CREAM 5 GRAM TOPICAL (06:44)
[2023-05-20 07:00] VITALS: BP 135/63
[2023-05-20] MEDS: ATIVAN 0.75 MG PO (08:08)
[2023-05-20 08:14] LABS: Hematocrit 29.2 % (37.0-47.0); Hemoglobin 10.1 g/dL (12.0-16.0); Mean Corp Hgb Conc. 34.6 g/dL (33.0-37.0); Mean Corpuscular Hgb 30.6 pg (27.0-31.0); Mean Corpuscular Volume 88.5 fL (81.0-99.0); Mean Platelet Volume 10.4 fL (7.4-10.4); Platelet Count 210 10^3/uL (130-400); Red Cell Dist. Width 13.9 % (11.5-14.5); White Blood Cell Count 5.1 10^3/uL (4.8-10.8)
[2023-05-20 08:16] LABS: Glucose - Point of Care 105 mg/dl (70-99)
[2023-05-20] MEDS: NOVOLOG FLEXPEN-LOW RESISTANCE SC ×2 (08:49→11:54)
[2023-05-20] MEDS: MANNITOL 12.5 GRAMS IV (09:30)
[2023-05-20] MEDS: FLEXBUMIN 25% FOR HEMODIALYSIS 12.5 GRAMS IV (09:37)
--- NOTE | 2023-05-20 10:23 | PN.CDI ---
Addendum entered and electronically signed by Benjamin Nicolas MD 05/20/23 18:51:
No change in documentation
Original Note:
CDI
- -
CDI:
Physician Documentation Request
Admit Date: 05/13/23 17:38
Dear Doctor Maria Isabel,
Clinical Indicators:
Patient admitted with generalized weakness with altered mental status and mechanical fall; missed HD session prior to arrival.
05/14 Ceftriaxone stated for empirically for UTI.
05/18 Neuro PN, 'Delirium given ESRD on HD will give easy tendency towards delirium and metabolic disturbance... Benzodiazepine use likely contributing....Contribution by vascular disease of the brain seen on MRI brain.'
05/18 PN, 'She also stated that patient has Vicodin, Lomotil at home which sometimes she mixes with her medications.'
Medication Adjustments: Gabapentin held since admission
Ativan dose reduced to 0.75 mg
Based on the above, could you clarify in the Progress Notes and Discharge Summary which, if any of the following, is the most likely etiology of the confusion/altered mental status:
Toxic Metabolic Encephalopathy
Acute Delirium Only, please indicate known or suspected etiology
Other, please specify
Use of terms such as suspected, likely, concern for, or probable (associated with a specific diagnosis that is being evaluated, monitored, or treated as if it exists) are acceptable and can be coded in the inpatient setting, when documented at the
time of discharge.
Thank you,
XAVIER Hodges RN
CDI Specialist
available via tiger text
Please use your independent medical judgment in providing your response.
--- NOTE | 2023-05-20 10:44 | W.PN.UPDATE ---
Update Note
Progress Note Update
reviewed with radiology Pt has declinded esophagram last 3 days. Will cancel study. Reviewed with Dr. Villanueva.
--- NOTE | 2023-05-20 10:57 | W.PN.HOSP.TC ---
Today's Communication/Plan
-
Discharge
Assessment / Plan
Assessment / Plan
HPI: 77-year-old female past medical history of ESRD on hemodialysis Tuesday, Tuesday, Tuesday, atrial fibrillation on Eliquis, CAD with stents, anemia of chronic disease, type 2 diabetes, hypertension, hyperlipidemia, sarcoidosis, probable
cirrhosis, anxiety, GERD, presented with multiple falls and generalized weakness.
She has been falling off the bed and falling off her wheelchair. On DOA, while trying to get into wheelchair to go to dialysis she fell and therefore was unable to get to dialysis. Daughters have also noticed that patient has been having some
altered mental status and expressions are a bit unusual.
2 days MANAGER CHEMISTRY, she had an episode of visually hallucinating a pot of ocasio. She has chronic blurred vision. No recent changes to medications. Patient had a similar episode 2 years ago and was evaluated and diagnosed with TIA prior to being on Eliquis.
Patient has chronic weakness of the left upper extremity due to the AV fistula status post bypass. She has some chronic tingling in her left hand which is stable. Did notice that patient's been more weak in the left hand over the past few days.
Daughter is also noted some intermittent slurring of speech.
CVS: S1-S2 normal
Chest: CTA B/L
Abdomen: Soft, NT / Bowel sounds present
Extremities: No edema, normal pulses
WATERPROOF BAG SEWER: No facial droop, Conversant
No Hallucinations last night. Pt feels well.
Getting HD now
A/P:
# Generalized weakness with altered mental status and mechanical fall; unclear cause, acute stroke was ruled out on MRI
# Slurred speech on admission
No focal neurological deficits on examination apart from decreased strength of the left upper extremity which is likely chronic due to complications from fistula
CT head shows no acute intracranial abnormality
Carotid ultrasound shows less than 50% bilateral internal carotid artery stenosis
urinalysis with few bacteriuria, since pt c/o urinary frequency can start empiric ceftriaxone to cover for UTI
blood cultures negative
Holding gabapentin,
MRI brain negative for acute stroke but noted white matter disease of frontal and parietal lobes which is likely chronic
Severe WM Leukoaraiosis - ? Cognitive dysfunction at baseline? never diagnosed?
PT OT recc SNF
Diet recommends to advance as tolerated. But pt wants IDDSI 6
Neurology recommends OP neurosurgery follow-up.
Discussed with the patient's daughter regarding meningioma.
EEG-no Seizures per Neuro
Unclear if Ativan may be also contributing to her symptoms however was restarted by neurology
Will reduce as Psychjuly, as well as I think that this may be adding on to her confusion.
Slow wean off as OP discussed.
Now on 0.75 mg
# Hypertensive urgency secondary to missed dialysis session on DOA
Cont MANAGER CHEMISTRY Coreg
Added Nifedipine 30 mg however blood pressure was low therefore stopped
Will not discharge on that
# ESRD on hemodialysis M, W, F
# Mild Hyperkalemia secondary to missed dialysis, resolved
# Acute on chronic hyponatremia
Renal on board for HD need
Continue Bumex
Continue sevelamer
# Dysphagia-GI consulted per family request. Patient refused esophagram .
OP GI F/U
# Paroxysmal atrial fibrillation-Eliquis, Coreg
# CAD status post stents
Continue Coreg
Continue Eliquis
# Anemia of chronic disease
Hemoglobin stable
# IDDM
# Hyperglycemia on admission
Changed MANAGER CHEMISTRY Levemir to 26 units HS
Stopped Novolog
A1C 10.2 %
Insulin sliding scale
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
Arterial steal syndrome, status post DRIL procedure involving left upper extremity.
Stopped gabapentin
# Hyperlipidemia
Continue statin
# Sarcoidosis-pulmonary- diagnosed -No Biopsy
Calcified mediastinal adenopathy, last CT imaging 2021
# Moderate discogenic degenerative disease at C3/C4 and severe discogenic degenerative disease at C4/C5 with loss of intervertebral disc space height and vertebral body endplate osteophytes
# History of left lumpectomy 2017
# Anxiety-Ativan restarted by neuro
Cut back to 0.75 mg
(already got a dose today)
# GERD
Continue Protonix
# Hysterectomy with early stage uterine cancer
# History of frontal meningioma on imaging, stable
# Spinal stenosis/arthritis
# Obesity per BMI
# Ex-smoker
#Full code
#DVT prophylaxis Eliquis
Discussed with nurse
05/19/23-Detailed discussion with the patient's daughter. Reviewed about white matter changes in the MRI. Also about Ativan. Will start weaning Ativan to 0.75 mg and also reviewed with daughter about slowly weaning it off in the next several weeks
as outpatient. She also stated that patient has Vicodin, Lomotil at home which sometimes she mixes with her medications. Family is planning to look at her medications back and straighten it for her moving forward.
Also discussed about neuropsychiatric, neuro surgery evaluation as outpatient. They are aware that while she does not need to stay in the hospital she needs to complete the workup as outpatient.
CXR normal
Pt didnt want PT to see her yesterday .
Will discharge home as planned.
VN/Home PT
Discharge time 36 min
Anticipated Discharge: Today
Subjective/Interval History
-
Date of Service: May 20, 2023
Objective Data
-
Labs:
Laboratory Results
05/20/23
07:27
WBC 5.1
Hgb 10.1 L
Hct 29.2 L
Plt Count 210 D
Vital Signs:
Vital Signs
Temp Pulse Resp BP Pulse Ox
97.6 F 49 17 135/63 97
05/20/23 03:50 05/20/23 07:00 05/20/23 07:00 05/20/23 07:00 05/20/23 03:50
I&O
05/19/23 05/20/23 05/21/23
06:59 06:59 06:59
Intake Total 320 / 320 500 / 500
Balance 320 / 320 500 / 500
[2023-05-20 11:00] VITALS: BP 142/66
--- NOTE | 2023-05-20 11:00 | W.DS.TRANS ---
Addendum entered and electronically signed by Benjamin Nicolas MD 05/20/23 18:54:
Dictation- [id number]
Original Note:
DC Summary - Mobility Engineer
-
Discharge Instructions:
Sleep Apnea Risk High
Discharge Diagnosis/Procedures Mental status change and hallucinations,
generalized weakness, hypertension, end-stage
renal disease, dysphagia, atrial fibrillation,
coronary disease, anemia, diabetes, neuropathy,
hypercholesterol, GERD, hysterectomy, anxiety,
meningioma, spinal stenosis
Diet Restrict fluids to 48 oz
Additional Diets soft bite sized food. Sit up right for all meals
Activity As tolerated,With assistance
Driving Restrictions No driving
Other Services VN,PT,OT
Instructions:
Stand-Alone Forms:
Changes to Home Medications: No
Discharge Medications:
DC Medications w/original date entered in [employer]
pantoprazole 40 mg tablet,delayed release 40 mg PO DAILY Gastrointestinal issue 07/27/21
bumetanide 1 mg tablet 1 mg PO DAILY Fluid Retention/Swelling 07/01/22
lactobacillus combination no.4 3 billion cell capsule (Probiotic) 3,000 mmu cells PO DAILY Gastrointestinal Issue 07/01/22
sevelamer HCl 800 mg tablet 800 mg PO MEALS Kidney Disease 07/30/22
apixaban 5 mg tablet (Eliquis) 5 mg PO BID #60 tabs 08/16/22
carvedilol 6.25 mg tablet 6.25 mg PO BID Blood Pressure 03/09/23
cholecalciferol (vitamin D3) 50 mcg (2,000 unit) tablet (Vitamin D3) 50 mcg PO DAILY Supplement 03/09/23
atorvastatin 80 mg tablet 80 mg PO QPM High Cholesterol 05/13/23
cyanocobalamin (vitamin B-12) 1,000 mcg tablet 1,000 mcg PO DAILY Supplement #0 tabs 05/20/23
insulin detemir U-100 100 unit/mL (3 mL) subcutaneous pen (Levemir FlexPen) 26 unit (0.26 mL) SC HS Diabetes #0 mL 05/20/23
lorazepam 1 mg tablet 0.75 mg (0.75 x 1 mg) PO DAILY anxiety #0 tabs 05/20/23
sennosides 8.6 mg tablet (Senna Laxative) 17.2 mg (2 x 8.6 mg) PO HS Constipation #0 tabs 05/20/23
Thiamine HCl (vitamin B1) 100 mg tablet 100 mg PO DAILY Supplement #0 tabs 05/20/23
Home Medication Changes
Stop Gabapentin
Pending Results: Yes
Additional Pending Results:
ANCA serology
[2023-05-20 11:49] LABS: Glucose - Point of Care 84 mg/dl (70-99)
[2023-05-20] MEDS: BUMEX 1 MG PO (12:07)
[2023-05-20] MEDS: VISBIOME 1 CAP PO (12:07)
[2023-05-20] MEDS: COREG 6.25 MG PO (12:07)
[2023-05-20] MEDS: ELIQUIS 5 MG PO (12:08)
[2023-05-20] MEDS: VITAMIN B1 100 MG PO (12:08)
[2023-05-20] MEDS: PROTONIX 40 MG PO (12:08)
[2023-05-20] MEDS: RENVELA PO (12:08)
[2023-05-20] MEDS: VITAMIN D3 (cholecalciferol) 50 MCG PO (12:08)
[2023-05-20] MEDS: VITAMIN B-12 1000 MCG PO (12:08)
[2023-05-20] MEDS: ROCEPHIN 1000 MG IV (12:09)
[2023-05-20] MEDS: RENVELA 800 MG PO (12:09)
[2023-05-20] MEDS: STERILE WATER FOR INJECTION 10 ML IV (12:09)
--- NOTE | 2023-05-20 13:06 | W.PN.NEPH.HD ---
Assessment
-
- planning for d/c today
- no complaints
- feels back to baseline
Progress Note - Hemodialysis
-
Date of Service: May 20, 2023
Duration: 30 minutes and 3 hours
Potassium Bath: 3
Calcium Bath: 2.5
Opti-Dialyzer: 160
Ultrafiltration: Other
Blood Flow: 400
Dialysate Flow: 600
--- NOTE | 2023-05-20 14:22 | CM ---
Reviewed chart, met with patient and her family who was at bedside to confirm they select for [facility] as VN consult was received. Patient stated that she would like VN. [facility] reviewed and is on chart. VN liason updated.
Plan: Case management will continue to follow and assist with discharge planing. Home with VN.
--- NOTE | 2023-05-20 14:45 | VNURNOTE ---
Home Health Liaison met with patient and family at 1430 to discuss [facility] nurse/therapy, visits, schedule and homebound status. Patient is agreeable and understands that visits at home will be 2-3 x per week to assess and teach medical management.
[facility] brochure provided with contact information. Patient is aware that [facility] will contact them for start of care in 1-2 days after discharge from .
[facility] referral completed in [facility].
[2023-05-22 16:05] LABS: Myeloperoxidase Antibody 1 AU/mL (0-19); Serine Protease-3, IgG 2 AU/mL (0-19)
== END 2023-05-20 14:51 | disposition home health service (06) | DRG 124 ==
LOC: 3 WEST ACU 17:38
PROVIDERS: Internal Medicine; Student in an Organized Health Care Education/Training Program; ADMITTING PHYSICIAN Hospitalist; ATTENDING PHYSICIAN Hospitalist; CONSULT PHYSICIAN Internal Medicine; CONSULT PHYSICIAN Psychiatry & Neurology Neurology; CONSULT PHYSICIAN Psychiatry & Neurology Psychiatry; EMERGENCY PHYSICIAN Emergency Medicine; FAMILY PHYSICIAN Nurse Practitioner Primary Care; OTHER PHYSICIAN Specialist
PROC: 5A1D70Z Performance of Urinary Filtration, Intermittent, Less than 6 Hours Per Day (ICD-10-PCS; 2023-05-14)
DX: R44.1 Visual hallucinations (principal); N18.6 End stage renal disease; I12.0 Hypertensive chronic kidney disease with stage 5 chronic kidney disease or end stage renal disease; R47.01 Aphasia; E87.1 Hypo-osmolality and hyponatremia; R53.1 Weakness; E87.5 Hyperkalemia; D32.0 Benign neoplasm of cerebral meninges; I48.0 Paroxysmal atrial fibrillation; E11.22 Type 2 diabetes mellitus with diabetic chronic kidney disease; E78.00 Pure hypercholesterolemia, unspecified; F41.9 Anxiety disorder, unspecified; E83.39 Other disorders of phosphorus metabolism; I65.23 Occlusion and stenosis of bilateral carotid arteries; I16.0 Hypertensive urgency; E11.65 Type 2 diabetes mellitus with hyperglycemia; K74.60 Unspecified cirrhosis of liver; D86.0 Sarcoidosis of lung; K21.9 Gastro-esophageal reflux disease without esophagitis; E66.9 Obesity, unspecified; D63.1 Anemia in chronic kidney disease; M48.00 Spinal stenosis, site unspecified; E11.40 Type 2 diabetes mellitus with diabetic neuropathy, unspecified; I25.10 Atherosclerotic heart disease of native coronary artery without angina pectoris; H53.8 Other visual disturbances; R13.10 Dysphagia, unspecified; R06.6 Hiccough; R29.6 Repeated falls; W05.0XXA Fall from non-moving wheelchair, initial encounter; Z91.81 History of falling; Y93.9 Activity, unspecified; Y92.9 Unspecified place or not applicable; Z79.01 Long term (current) use of anticoagulants; Z99.2 Dependence on renal dialysis; Z86.73 Personal history of transient ischemic attack (TIA), and cerebral infarction without residual deficits; Z87.891 Personal history of nicotine dependence; Z95.5 Presence of coronary angioplasty implant and graft; Z91.041 Radiographic dye allergy status; Z79.4 Long term (current) use of insulin; Z86.011 Personal history of benign neoplasm of the brain; Z91.158 Patient's noncompliance with renal dialysis for other reason; Z68.35 Body mass index [BMI] 35.0-35.9, adult
CPT/HCPCS: 70450; 70551; 71046; 80048; 80053; 81003; 81015; 82607; 82728; 82746; 82962; 83036; 83516; 83735; 84443; 84484; 85025; 85027; 85652; 86140; 86618; 86780; 87040; 92526; 92610; 93005; 93880; 95816; 97116; 97163; 97166; 97530; 99285; G0257; P9047; Q5106

== ENCOUNTER 2023-09-07 17:29 | Emergency (ER) | payer MEDICARE, OTHER, SELFPAY ==
[2023-09-07 17:31] VITALS: BMI 38.4
[2023-09-07 17:33] VITALS: BP 125/68
[2023-09-07 17:34] VITALS: BP 125/68
[2023-09-07 17:46] LABS: % Basophils 0.8 % (0-2); % Eosinophils 5.8 % (0-6); % Immature Granulocytes 0.4 % (0-0.5); % Monocytes 6.4 % (1.7-9.3); % Neutrophils 68.6 % (42.2-75.2); Absolute Eosinophils 0.3 10^3/uL (0-0.7); Absolute Lymphocytes 0.9 10^3/uL (1.2-3.4); Absolute Monocytes 0.3 10^3/uL (0.1-0.6); Absolute Neutrophils 3.3 10^3/uL (1.4-6.5); Hemoglobin 11.6 g/dL (12.0-16.0); Mean Corp Hgb Conc. 36.3 g/dL (33.0-37.0); Mean Corpuscular Hgb 31.7 pg (27.0-31.0); Mean Corpuscular Volume 87.4 fL (81.0-99.0); Mean Platelet Volume 10.4 fL (7.4-10.4); Nucleated Red Blood Cells % 0 %; Platelet Count 169 10^3/uL (130-400); Red Blood Cell Count 3.66 10^6/uL (4.20-5.40); Red Cell Dist. Width 13.4 % (11.5-14.5); White Blood Cell Count 4.8 10^3/uL (4.8-10.8)
[2023-09-07 18:00] VITALS: BP 131/64
[2023-09-07 18:20] LABS: ALT (SGPT) 24 U/L (0-35); AST (SGOT) 26 U/L (14-36); Albumin 4.3 g/dl (3.5-5.0); Alkaline Phosphatase 155 U/L (38-126); Blood Urea Nitrogen 17 mg/dl (7-17); Calcium 9.2 mg/dl (8.4-10.2); Carbon Dioxide 31 mmol/L (22-30); Chloride 93 mmol/L (98-107); Estimated Creatinine Clearance 18 ml/min; Glucose 222 mg/dl (70-99); Sodium 134 mmol/L (135-145); Total Bilirubin 1.5 mg/dl (0.2-1.3); Total Protein 7.3 g/dl (6.3-8.2); eGFR 15.02
[2023-09-07 19:00] VITALS: BP 133/57
--- NOTE | 2023-09-07 19:01 | ED.GENMED ---
History of Present Illness
General
Chief Complaint: Heart Rate Problem
Source: patient
Exam Limitations: none
Time Seen by Provider: 09/07/23 17:37
Nursing documentation reviewed up to this point in time: agreed with
History of Present Illness
History of Present Illness:
77-year-old female with past medical history as documented including ESRD on dialysis, hypertension, hyperlipidemia, CAD, atrial fibrillation on Eliquis who presents to the emergency room from dialysis for evaluation of jaw pain and tachycardia.
Patient reports that while she was finishing her dialysis session today she started to notice acute onset of jaw pain and palpitations. She says that this is her typical symptomatology when she goes into rapid atrial fibrillation. EMS was called
to the scene and she was found to be tachycardic with A-fib on EMS EKG, heart rate 160-180. An IV was placed by EMS that she was given around 200 cc of normal saline and she says that shortly thereafter her symptoms completely resolved. She
arrives to us in sinus rhythm on the monitor and has no complaints. She says that she did not have any chest pain at any point, no shortness of breath, no dizziness or syncope. She reports compliance with all medications.
Past History
Past History
ED Past Medical History: Arrthythmia (Afib), CAD, HTN, Hypercholesterolemia, NIDDM, Renal failure, Psychiatric (anxiety) and Other (pulmonary sarcoid 1990s, LUE AVF, COVID-19, HD)
ED Past Surgical History: Cardiac and Gynecological
Patient has exhibited threatening behavior?: No
PSI?: No
Social History
Tobacco: Former smoker
Alcohol: None
Drug: None
Personal:
Living: with family
Employment: Not employed
Family History
Family History: Other (reviewed and non-contributory)
Review of Systems
Review of Systems
All Other Systems: ROS reviewed and negative except as documented in HPI and ROS
Respiratory: Denies cough or trouble breathing
Cardiac: Reports palpitations; Denies chest pain, diaphoresis or syncope
ABD/GI: Denies abdominal pain, nausea, vomiting or diarrhea
Musculoskeletal: Denies neck pain or back pain
Neurological: Denies dizzy or headache
Phy Exam
Physical Exam
Physical Exam:
General: Awake, alert; no acute distress
Head: Normocephalic, atraumatic
Eyes: Conjunctiva normal, sclera anicteric
Throat: Airway intact, handling secretions
Neck: Trachea midline, supple without meningismus
Lungs: Clear to auscultation bilaterally, no wheezing, rales, rhonchi
Heart: Regular rate (heart rate in the 80s) and rhythm, no murmurs, gallops, or rubs
Abd: Soft, non distended, nontender
Neuro: No gross deficit
Extremities: No edema in extremities, warm well-perfused
Scores
Heart Failure Risk
Heart Failure Risk Score: Not Applicable
Heart Score for Chest Pain Patients
STEMI patient?: Not applicable
Withdrawal Assessment of Alcohol
Withdrawal Assessment Completed?: Not applicable
Course
Orders/Labs/Results
Orders:
Orders
09/07/23 17:32
EKG [Electrocardiogram (*1)] Urgent
Reason for Study: Atrial Fibrillation
EKG- Treatment ONCE
09/07/23 17:40
CBC/With Diff [Complete Blood Count/With Diff] Urgent
CMP [Comprehensive Metabolic Panel] Urgent
Abnormal Lab Results
09/07/23
17:40
RBC 3.66 L 10^6/uL
(4.20-5.40)
Hgb 11.6 L g/dL
(12.0-16.0)
Hct 32.0 L %
(37.0-47.0)
MCH 31.7 H pg
(27.0-31.0)
Absolute Lymphs (auto) 0.9 L 10^3/uL
(1.2-3.4)
Lymphocytes % 18.0 L %
(20.5-51.1)
Sodium 134 L mmol/L
(135-145)
Chloride 93 L mmol/L
(98-107)
Carbon Dioxide 31 H mmol/L
(22-30)
Creatinine 3.1 H mg/dL
(0.6-1.0)
Glucose 222 H mg/dl
(70-99)
Total Bilirubin 1.5 H mg/dl
(0.2-1.3)
Alkaline Phosphatase 155 H U/L
(38-126)
09/07/23 17:40
09/07/23 17:40
Vital Signs
Initial and Last Documented VS:
Initial Vital Signs
BP
125/68
09/07/23 17:33
Last Documented Vital Signs
Temp Pulse Resp BP Pulse Ox
36.9 C 74 14 131/64 96
09/07/23 17:34 09/07/23 18:45 09/07/23 18:45 09/07/23 18:00 09/07/23 18:45
MDM/Problems Addressed
Differential Diagnosis Includes:
Symptomatic A-fib
MDM/Problems Addressed:
77-year-old female presents after an episode of jaw pain and palpitations associated with marked tachycardia�this is her typical symptomatology she says when she goes into rapid A-fib. She was given 200 cc of IV fluid from EMS and her symptoms have
completely resolved she appears to have converted to normal sinus rhythm. Vitals are normal now. Exam as above. EKG confirms sinus rhythm with rate in the 80s. Will check basic screening labs. Will monitor on telemetry for recurrence. Reassess
after the above. If she remains asymptomatic and in sinus rhythm can likely be discharged.
Patient monitored here in the emergency room for 2+ hours with no recurrence of symptoms, stable vital signs throughout, steady sinus rhythm on the monitor. Screening labs significant for some hyperglycemia�patient is on insulin at home, we spoke
about her high blood sugar and she will monitor closely. She is requesting discharge at this point and I think this is a reasonable plan. We spoke about return precautions and all questions were answered.
Chronic conditions affecting care:
ESRD, atrial fibrillation, CAD
*Pulse Oximetry
Patient hypoxic: no
*EKG
Interpreted by ED Provider?: Yes
Heart Rate: 84
Rate: normal
Rhythm: sinus
[place]: normal axis
Interval: normal interval
QRS Pattern: normal QRS
Ischemia: no ischemia
*Critical Care Note
Total Time (30-74mins, 75-104mins- exclusive of procedures): Not Applicable
Data Reviewed
Review of Other/Old Records Reveals: Labs and Records
Source: patient and records
ED Attending Note
-
Portions of this chart may have been created with voice recognition software.� Occasional wrong word or��sound alike� substitutions may have occurred due to the inherent limitations of voice recognition software.
Discharge Plan
Departure
Patient Disposition: Home (Routine Discharge)
Date of Disposition: 09/07/23
Time of Disposition: 19:43
Patient with high blood pressure during this ER visit?: No
Discharge Problem:
Atrial fibrillation, Hyperglycemia
Instructions: Atrial Fibrillation (DC)
Prescriptions:
No Action
pantoprazole 40 MG tablet,delayed release (DR/EC)
40 mg PO DAILY
Probiotic 3 billion cell Capsule
3,000 mmu cells PO DAILY
bumetanide 1 mg Tablet
1 mg PO DAILY
sevelamer HCl 800 mg Tablet
800 mg PO MEALS
Eliquis 5 mg Tablet
5 mg PO BID Qty: 60 0RF
carvedilol 6.25 mg tablet
6.25 mg PO BID
cholecalciferol (vitamin D3) [Vitamin D3] 50 mcg (2,000 unit) Tablet
50 mcg PO DAILY
atorvastatin 80 mg tablet
80 mg PO QPM
sennosides [Senna Laxative] 8.6 mg Tablet
17.2 mg PO HS Qty: 0 0RF
cyanocobalamin (vitamin B-12) 1,000 mcg Tablet
1,000 mcg PO DAILY Qty: 0 0RF
thiamine HCl (vitamin B1) 100 mg Tablet
100 mg PO DAILY Qty: 0 0RF
lorazepam 1 MG tablet
0.75 mg PO DAILY Qty: 0 0RF
Patient Comments:
03/09/2023: last filled 03/09/23, 90 tabs for 90 days from [place]
Levemir FlexPen 100 unit/mL (3 mL) Insulin Pen
26 unit SC HS Qty: 0 0RF
Patient Comments:
05/13/23: Patient has not filling since 2022, Pt has had trouble taking her blood sugars and using the insulin pen.
Referrals:
Marie Balbuena CRNP [Family Provider] - Call in 1-3 days for appt
Activity Restrictions/Additional Instructions:
Thank you for visiting the Emergency Department at [facility].
1. Please schedule a follow up appointment as directed. Call first thing tomorrow morning to make an appointment.
2. If indicated, please take your medications as instructed and indicated on discharge paperwork.
3. If any of your symptoms do not improve, or persist, or become more severe within 6-12 hours, please return to the emergency department for further care.
4. Please return to the emergency department if you develop a headache, neck pain/stiffness, fever greater than 100.4F, chest pain, shortness of breath, persistent nausea, vomiting, slurred speech, difficulty walking, numbness/tingling, weakness,
signs of infection or any other symptoms that are worrisome to you.
Please call [phone] if you have any questions.
Interventions
Interventions:
*Risk Screen - Suicide Last Done: 09/07/23 17:34
*General Assessment Last Done: 09/07/23 17:34
*Neglect/Abuse Screening Last Done: 09/07/23 17:34
ED- Fall Risk Assessment Last Done: 09/07/23 17:58
*ED COVID-19 Vaccine History Last Done: 09/07/23 18:09
ED- Cardiac Assessment Last Done: 09/07/23 17:58
ED- Pulmonary Assessment Last Done: 09/07/23 17:58
Discharge Date and Time
Print Language: PASHTO
== END 2023-09-07 19:57 | disposition home or self-care (01) ==
LOC: EMR 17:29
PROVIDERS: Emergency Medicine; EMERGENCY PHYSICIAN Emergency Medicine; FAMILY PHYSICIAN Nurse Practitioner Primary Care
DX: I48.91 Unspecified atrial fibrillation (principal); E11.65 Type 2 diabetes mellitus with hyperglycemia; I12.0 Hypertensive chronic kidney disease with stage 5 chronic kidney disease or end stage renal disease; E11.22 Type 2 diabetes mellitus with diabetic chronic kidney disease; N18.6 End stage renal disease; E78.00 Pure hypercholesterolemia, unspecified; F41.9 Anxiety disorder, unspecified; I25.10 Atherosclerotic heart disease of native coronary artery without angina pectoris; Z79.01 Long term (current) use of anticoagulants; Z86.16 Personal history of COVID-19; Z87.891 Personal history of nicotine dependence; Z99.2 Dependence on renal dialysis
CPT/HCPCS: 99283; 80053; 85025; 93005

== ENCOUNTER 2023-10-07 16:33 | Emergency (ER) | payer MEDICARE, OTHER, SELFPAY ==
[2023-10-07] VITALS (15 sets, daily range): BP systolic 106–138; BP diastolic 46–104; BMI 37.8
--- NOTE | 2023-10-07 17:06 | ED.GENMED ---
History of Present Illness
General
Chief Complaint: Heart Rate Problem
Source: patient and spouse
Time Seen by Provider: 10/07/23 16:59
History of Present Illness
History of Present Illness:
77-year-old female who was in dialysis at around 3:30 PM and noticed that her heart felt like it was racing associated with feeling hot and sweaty and then 'my jaw started bothering me'. These are very similar symptoms to when she has developed
A-fib in the past particular when she is on dialysis. The session was completed and she was sent home and told to call medics if her symptoms continued. Upon arrival home, patient noted continued symptoms and her called medics. Upon EMS
arrival patient noted to be in A-fib with RVR. She was given 200 mL normal saline and transported here. Patient states she feels much better. She does not appreciate palpitations or jaw discomfort. She denies chest pain, dyspnea, back pain,
headache, dizziness. Patient is compliant with all her medications
Past History
Past History
ED Past Medical History: Arrthythmia (Afib), CAD, HTN, Hypercholesterolemia, NIDDM, Renal failure, Psychiatric (anxiety) and Other (pulmonary sarcoid 1990s, LUE AVF, COVID-19, HD)
ED Past Surgical History: Cardiac and Gynecological
Patient has exhibited threatening behavior?: No
PSI?: No
Social History
Tobacco: Former smoker
Alcohol: None
Drug: None
Personal:
Living: with family
Employment: Not employed
Family History
Family History: Other (reviewed and non-contributory)
Phy Exam
Physical Exam
Physical Exam:
GENERAL: Alert , in no apparent distress, nontoxic, watching TV
EYE: pupils equal and reactive
NECK: Supple, no significant adenopathy.
ENT: o/p clr, mmm.
CARDIAC: Irregularly irregular, tachycardic
LUNGS: Clear breath sounds bilaterally, no acute respiratory distress, no wheezes rales or rhonchi
ABDOMEN: Soft, without focal tenderness, no r/g, no cvat
NEUROLOGICAL: Alert and oriented, no focal neuro deficits
SKIN: Warm and dry, skin intact. Left graft noted with bruit, no active bleeding
MUSCULOSKELETAL: No edema, well perfused.
PSYCH: Normal and appropriate interaction.
Course
Orders/Labs/Results
Orders:
Orders
10/07/23 16:38
Electrocardiogram (*1) Urgent
Reason for Study: Chest Pain
Cardiac Monitoring- Treatment ONCE
EKG- Treatment ONCE
IV Insert/Care/Rem.- Treatment PRN
10/07/23 16:51
Complete Blood Count/With Diff Urgent
Comprehensive Metabolic Panel Urgent
10/07/23 17:05
Diltiazem HCl [Cardizem] 20 mg IV NOW STA
10/07/23 17:33
Diltiazem HCl [Cardizem] 25 mg .ROUTE .STK-MED ONE
10/07/23 17:34
Diltiazem HCl [Cardizem] 25 mg IV NOW STA
10/07/23 18:21
Diltiazem 125 mg/125 ml Nss [Cardizem] 125 mg in 125 ml .ROUTE .STK-MED
10/07/23 18:29
Diltiazem 125 mg/125 ml Nss [Cardizem] 125 mg in 125 ml IV NOW
Initial dose in mg/hr, then titrate:: 5
Titrate to keep:: Heart rate 80-100 bpm
Titrate by mg/hr:: 5 mg/hr
Frequency of titrations (minutes):: 15
Maximum dose in mg/hr:: 15
10/07/23 19:05
Metoprolol [Lopressor] 5 mg IV NOW STA
10/07/23 19:40
Electrocardiogram (*1) Urgent
Reason for Study: Atrial Fibrillation
10/07/23 19:41
EKG- Treatment ONCE
Abnormal Lab Results
10/07/23
16:51
RBC 3.66 L 10^6/uL
(4.20-5.40)
Hgb 11.8 L g/dL
(12.0-16.0)
Hct 33.0 L %
(37.0-47.0)
MCH 32.2 H pg
(27.0-31.0)
Abs Immat Gran (auto) 0.1 H 10^3/uL
(0-0.05)
Absolute Lymphs (auto) 1.0 L 10^3/uL
(1.2-3.4)
Immature Gran % 0.8 H %
(0-0.5)
Lymphocytes % 13.4 L %
(20.5-51.1)
Chloride 92 L mmol/L
(98-107)
Carbon Dioxide 35 H mmol/L
(22-30)
Creatinine 3.4 H mg/dL
(0.6-1.0)
Glucose 244 H mg/dl
(70-99)
Alkaline Phosphatase 171 H U/L
(38-126)
10/07/23 16:51
10/07/23 16:51
Vital Signs
Initial and Last Documented VS:
Initial Vital Signs
Temp Pulse Resp Pulse Ox
97.6 F 127 16 98
10/07/23 16:40 10/07/23 16:40 10/07/23 16:40 10/07/23 16:40
Last Documented Vital Signs
Temp Pulse Resp BP Pulse Ox
97.6 F 52 19 106/51 98
10/07/23 16:40 10/07/23 20:00 10/07/23 19:15 10/07/23 20:00 10/07/23 19:45
*Critical Care Note
Total Time (30-74mins, 75-104mins- exclusive of procedures): Not Applicable
Update Note
Update Note:
Patient presents to the Emergency Department with ___hot sweaty jaw discomfort and palpitations
Number and Complexity of Problems Addressed at the Encounter
� Chronic conditions affecting care:
� Acute Exacerbation and/or Progression of Chronic Illness:
� Differential Diagnosis includes: But not limited to dehydration, A-fib, supraventricular tachycardia, etc. etc.
Amount and/or Complexity of Data to be Reviewed and Analyzed
� I performed an independent evaluation of and my interpretation is:
EKG: Read by me, A-fib, with RVR tachycardia, LAD, no acute ischemia noted
CT:
Xrays:
Laboratory Studies: Baseline anemia, baseline renal failure
Other:
� Review of other/old records reveals: pt admitted August 2022 with new onset afib, was started on eliquis at that time, noted hx of cad s/p PCI to RCA in 2018
� Clinical information was obtained by an independent historian: who is bedside
� Prescriptions/Medications Considered but not given:
� Further testing considered but not performed:
Risk of Complications and/or Morbidity or Mortality of Patient Management
� Social determinants of health affecting care:
� Discussion with other providers (PCP, Hospitalists, Consultants, etc):
� Escalation of care including admission/observation vs risk of discharge considered: 7:59 PM patient put on Cardizem drip after receiving 2 boluses of Cardizem, with only moderate reduction in her tachycardia. I then added 5 mg
of Lopressor and she spontaneously cardioverted to normal sinus rhythm. Repeat ECG demonstrates sinus bradycardia. Patient asymptomatic and eager to go home. Discussed with her importance of follow-up and reasons return to the ER.
ED Attending Note
-
Portions of this chart may have been created with voice recognition software.� Occasional wrong word or��sound alike� substitutions may have occurred due to the inherent limitations of voice recognition software.
Discharge Plan
Departure
Patient Disposition: Home (Routine Discharge)
Date of Disposition: 10/07/23
Time of Disposition: 19:59
Patient with high blood pressure during this ER visit?: Yes
Condition: Good
Discharge Problem:
Atrial fibrillation
Instructions: Atrial Fibrillation (DC), BLOOD PRESSURE
Prescriptions:
No Action
pantoprazole 40 MG tablet,delayed release (DR/EC)
40 mg PO DAILY
Probiotic 3 billion cell Capsule
3,000 mmu cells PO DAILY
bumetanide 1 mg Tablet
1 mg PO DAILY
sevelamer HCl 800 mg Tablet
800 mg PO MEALS
Eliquis 5 mg Tablet
5 mg PO BID Qty: 60 0RF
carvedilol 6.25 mg tablet
6.25 mg PO BID
cholecalciferol (vitamin D3) [Vitamin D3] 50 mcg (2,000 unit) Tablet
50 mcg PO DAILY
atorvastatin 80 mg tablet
80 mg PO QPM
sennosides [Senna Laxative] 8.6 mg Tablet
17.2 mg PO HS Qty: 0 0RF
cyanocobalamin (vitamin B-12) 1,000 mcg Tablet
1,000 mcg PO DAILY Qty: 0 0RF
thiamine HCl (vitamin B1) 100 mg Tablet
100 mg PO DAILY Qty: 0 0RF
lorazepam 1 MG tablet
0.75 mg PO DAILY Qty: 0 0RF
Patient Comments:
03/09/2023: last filled 03/09/23, 90 tabs for 90 days from [place]
Levemir FlexPen 100 unit/mL (3 mL) Insulin Pen
26 unit SC HS Qty: 0 0RF
Patient Comments:
05/13/23: Patient has not filling since 2022, Pt has had trouble taking her blood sugars and using the insulin pen.
Activity Restrictions/Additional Instructions:
IF YOU DEVELOP DIZZINESS, PALPITATIONS, JAW PAIN, CHEST PAIN, SHORTNESS OF BREATH, OR OTHER WORRISOME SIGNS, PLEASE RETURN TO THE ER IMMEDIATELY. PLEASE TAKE YOUR MEDICATIONS USUAL
Interventions
Interventions:
*Risk Screen - Suicide Last Done: 10/07/23 16:40
*General Assessment Last Done: 10/07/23 16:40
*Neglect/Abuse Screening Last Done: 10/07/23 16:40
ED- Fall Risk Assessment Last Done: 10/07/23 16:55
*ED COVID-19 Vaccine History Last Done: 10/07/23 16:40
*Nursing Disposition Last Done: 10/07/23 20:27
ED- Cardiac Assessment Last Done: 10/07/23 16:55
ED- Pulmonary Assessment Last Done: 10/07/23 16:55
Discharge Date and Time
Discharge Date/Time: 10/07/23 20:27
Print Language: EGYPTIAN
[2023-10-07 17:13] LABS: % Basophils 0.8 % (0-2); % Eosinophils 3.9 % (0-6); % Immature Granulocytes 0.8 % (0-0.5); % Lymphocytes 13.4 % (20.5-51.1); % Monocytes 7.5 % (1.7-9.3); % Neutrophils 73.6 % (42.2-75.2); Absolute Basophils 0.1 10^3/uL (0-0.2); Absolute Eosinophils 0.3 10^3/uL (0-0.7); Absolute Immature Granulocytes 0.1 10^3/uL (0-0.05); Absolute Monocytes 0.6 10^3/uL (0.1-0.6); Absolute Neutrophils 5.6 10^3/uL (1.4-6.5); Hemoglobin 11.8 g/dL (12.0-16.0); Mean Corp Hgb Conc. 35.8 g/dL (33.0-37.0); Mean Corpuscular Hgb 32.2 pg (27.0-31.0); Mean Corpuscular Volume 90.2 fL (81.0-99.0); Mean Platelet Volume 10.4 fL (7.4-10.4); Nucleated Red Blood Cells % 0 %; Platelet Count 166 10^3/uL (130-400); Red Blood Cell Count 3.66 10^6/uL (4.20-5.40); Red Cell Dist. Width 13.5 % (11.5-14.5); White Blood Cell Count 7.6 10^3/uL (4.8-10.8)
[2023-10-07] MEDS: CARDIZEM 20 MG IV (17:14)
[2023-10-07 17:16] LABS: ALT (SGPT) 33 U/L (0-35); AST (SGOT) 27 U/L (14-36); Albumin 4.3 g/dl (3.5-5.0); Alkaline Phosphatase 171 U/L (38-126); Blood Urea Nitrogen 16 mg/dl (7-17); Calcium 9.3 mg/dl (8.4-10.2); Carbon Dioxide 35 mmol/L (22-30); Chloride 92 mmol/L (98-107); Estimated Creatinine Clearance 16 ml/min; Glucose 244 mg/dl (70-99); Potassium 3.8 mmol/L (3.5-5.1); Sodium 138 mmol/L (135-145); Total Bilirubin 1.2 mg/dl (0.2-1.3); Total Protein 7.4 g/dl (6.3-8.2); eGFR 13.44
[2023-10-07] MEDS: CARDIZEM 25 MG IV (17:34)
[2023-10-07] MEDS: CARDIZEM 125 IV (18:25)
[2023-10-07] MEDS: LOPRESSOR 5 MG IV (19:16)
== END 2023-10-07 20:27 | disposition home or self-care (01) ==
LOC: EMR 16:33
PROVIDERS: EMERGENCY PHYSICIAN Emergency Medicine; FAMILY PHYSICIAN Nurse Practitioner Primary Care
DX: I48.91 Unspecified atrial fibrillation (principal); R03.0 Elevated blood-pressure reading, without diagnosis of hypertension; Z87.891 Personal history of nicotine dependence
CPT/HCPCS: 99284; 96374; 96375; 80053; 85025; 93005

== ENCOUNTER 2024-01-05 13:26 | Observation (INO) | payer MEDICARE, OTHER, SELFPAY ==
[2024-01-05] VITALS (9 sets, daily range): BP systolic 124–198; BP diastolic 53–94; BMI 38.6; BMI 37.2
[2024-01-05 11:13] LABS: Glucose - Point of Care 228 mg/dl (70-99)
[2024-01-05 11:26] LABS: % Basophils 1.3 % (0-2); % Eosinophils 5.2 % (0-6); % Immature Granulocytes 0.6 % (0-0.5); % Lymphocytes 22.7 % (20.5-51.1); % Monocytes 7.7 % (1.7-9.3); % Neutrophils 62.5 % (42.2-75.2); Absolute Basophils 0.1 10^3/uL (0-0.2); Absolute Eosinophils 0.2 10^3/uL (0-0.7); Absolute Lymphocytes 1.1 10^3/uL (1.2-3.4); Absolute Monocytes 0.4 10^3/uL (0.1-0.6); Absolute Neutrophils 2.9 10^3/uL (1.4-6.5); Hematocrit 36.3 % (37.0-47.0); Hemoglobin 12.3 g/dL (12.0-16.0); Mean Corp Hgb Conc. 33.9 g/dL (33.0-37.0); Mean Corpuscular Hgb 30.9 pg (27.0-31.0); Mean Corpuscular Volume 91.2 fL (81.0-99.0); Mean Platelet Volume 10.4 fL (7.4-10.4); Nucleated Red Blood Cells % 0 %; Platelet Count 176 10^3/uL (130-400); Red Blood Cell Count 3.98 10^6/uL (4.20-5.40); Red Cell Dist. Width 14.1 % (11.5-14.5); White Blood Cell Count 4.7 10^3/uL (4.8-10.8)
--- NOTE | 2024-01-05 11:31 | ED.CVA ---
History of Present Illness
General
Chief Complaint: CVA/TIA Symptoms
Source: patient and ambulance crew
Exam Limitations: none
Time Seen by Provider: 01/05/24 11:12
Onset of Stroke Symptoms
Onset of symptoms known: Yes
Date of onset of symptoms: 01/05/24
Time of onset of symptoms: 10:00
History of Present Illness
History of Present Illness:
78-year-old female presents with an episode of expressive aphasia and slurred speech. Occurred about 30 minutes prior to ER arrival. Was present on medic arrival but resolved by the time she got to the ER. No symptoms now. No headache no other
neurologic symptoms. Patient is on Eliquis for atrial fibrillation
Past History
Past History
ED Past Medical History: Arrthythmia (Afib), CAD, HTN, Hypercholesterolemia, NIDDM, Renal failure, Psychiatric (anxiety) and Other (pulmonary sarcoid 1990s, LUE AVF, COVID-19, HD)
ED Past Surgical History: Cardiac and Gynecological
Patient has exhibited threatening behavior?: No
PSI?: No
Social History
Tobacco: Former smoker
Alcohol: None
Drug: None
Personal:
Living: with family
Employment: Not employed
Family History
Family History: Other (reviewed and non-contributory)
Review of Systems
Review of Systems
All Other Systems: Not applicable
Respiratory: Reports no symptoms
Cardiac: Reports no symptoms
ABD/GI: Reports no symptoms
Phy Exam
Physical Exam
Physical Exam:
GENERAL: Alert and oriented in no apparent distress
EYE: Orbits normal.
NECK: Supple, no carotid bruit
ENT: Pharynx without erythema
CARDIAC: Regular rate and rhythm without any obvious murmurs.
LUNGS: Clear breath sounds,normal
ABDOMEN: Soft, without focal tenderness or distention
NEUROLOGICAL: Alert and oriented , cranial nerves II through XII intact. Speech normal. [id number] normal. Touch intact.
SKIN: Warm and dry, no rash or lesion, no discoloration, skin intact.
MUSCULOSKELETAL: No edema,no deformity.Good color
PSYCH: Normal and appropriate interaction.
Course
Orders/Labs/Results
Orders:
Orders
01/05/24 11:12
Electrocardiogram (*1) Stat
Reason for Study: Other
Other Reason for Exam: neuro symptoms
CT Head W/o Iv Contrast Urgent
Comment:
Reason For Exam: Aphasia/resolved, anticoagulated
Cardiac Monitoring- Treatment ONCE
EKG- Treatment ONCE
IV Insert/Care/Rem.- Treatment PRN
Pulse Ox/cont/shift [RESP] Stat
Quantity: 1
01/05/24 11:14
Basic Metabolic Panel Urgent
Complete Blood Count/With Diff Urgent
PTT Urgent
Prothrombin Time Urgent
Abnormal Lab Results
01/05/24 01/05/24
11:11 11:14
WBC 4.7 L 10^3/uL
(4.8-10.8)
RBC 3.98 L 10^6/uL
(4.20-5.40)
Hct 36.3 L %
(37.0-47.0)
Absolute Lymphs (auto) 1.1 L 10^3/uL
(1.2-3.4)
Immature Gran % 0.6 H %
(0-0.5)
PT 17.7 H Sec
(11.4-14.6)
APTT 38.4 H Sec
(23.4-35.0)
Chloride 93 L mmol/L
(98-107)
Carbon Dioxide 32 H mmol/L
(22-30)
BUN 23 H mg/dl
(7-17)
Creatinine 4.9 H* mg/dL
(0.6-1.0)
Glucose 266 H mg/dl
(70-99)
POC Glucose 228 H mg/dl
(70-99)
01/05/24 11:14
01/05/24 11:14
Vital Signs
Initial and Last Documented VS:
Initial Vital Signs
Temp Pulse Resp Pulse Ox
97.9 F 70 18 97
01/05/24 11:09 01/05/24 11:09 01/05/24 11:09 01/05/24 11:09
Last Documented Vital Signs
Temp Pulse Resp BP Pulse Ox
97.9 F 75 21 167/94 98
01/05/24 11:09 01/05/24 11:16 01/05/24 11:16 01/05/24 11:16 01/05/24 11:16
MDM/Problems Addressed
Differential Diagnosis Includes:
Medic and patient's description is of a expressive aphasia. Currently resolved. On Eliquis for atrial fibrillation. Workup in progress. Will be admitted for further workup
*Radiology
Radiology exam reviewed: radiology read reviewed (No acute findings)
*Pulse Oximetry
Patient hypoxic: no
*EKG
Interpreted by ED Provider?: Yes
Comparison EKG: changes noted
Heart Rate: 63
Rate: normal
Rhythm: sinus
[place]: normal axis
Interval: long QT
QRS Pattern: normal QRS
Ischemia: no ischemia
*Wireless Sales Manager Interpretation
Rate: normal
Interpretation: normal
Heart Rate: 66
Rhythm: sinus
*Critical Care Note
Total Time (30-74mins, 75-104mins- exclusive of procedures): Not Applicable
Data Reviewed
Review of Other/Old Records Reveals: Labs, Records, Radiology Studies and Testing
Update Note
Update Note:
Patient has remained medically stable. Family updated. Expressive aphasia TIA. Admission for further care
ED Attending Note
-
Portions of this chart may have been created with voice recognition software.� Occasional wrong word or��sound alike� substitutions may have occurred due to the inherent limitations of voice recognition software.
Discharge Plan
Departure
Prescriptions:
No Action
pantoprazole 40 MG tablet,delayed release (DR/EC)
40 mg PO DAILY
bumetanide 1 mg Tablet
1 mg PO DAILY
sevelamer HCl 800 mg Tablet
800 mg PO MEALS
Eliquis 5 mg Tablet
5 mg PO BID Qty: 60 0RF
carvedilol 6.25 mg tablet
6.25 mg PO BID
cholecalciferol (vitamin D3) [Vitamin D3] 50 mcg (2,000 unit) Tablet
50 mcg PO DAILY
atorvastatin 80 mg tablet
80 mg PO QPM
diphenoxylate-atropine [Lomotil] 2.5-0.025 mg Tablet
1 tab PO QIDPRN PRN (Reason: diarrhea)
Levemir FlexPen 100 unit/mL (3 mL) Insulin Pen
32 unit SC HS
lorazepam 1 MG tablet
1 mg PO DAILY
Patient Comments:
03/09/2023: last filled 03/09/23, 90 tabs for 90 days from [place]
Referrals:
Marie Balbuena CRNP [Family Provider] -
Interventions
Interventions:
*Risk Screen - Suicide Last Done: 01/05/24 11:09
*General Assessment Last Done: 01/05/24 11:09
*Neglect/Abuse Screening Last Done: 01/05/24 11:09
ED- Pulmonary Assessment Last Done: 01/05/24 11:30
ED- Neurological Assessment Last Done: 01/05/24 11:32
ED- Cardiac Assessment Last Done: 01/05/24 11:30
Discharge Date and Time
Print Language: MALDIVIAN
[2024-01-05 11:34] LABS: PT 17.7 Sec (11.4-14.6)
[2024-01-05 11:35] LABS: APTT 38.4 Sec (23.4-35.0)
[2024-01-05 12:01] LABS: Blood Urea Nitrogen 23 mg/dl (7-17); Calcium 9.4 mg/dl (8.4-10.2); Carbon Dioxide 32 mmol/L (22-30); Chloride 93 mmol/L (98-107); Estimated Creatinine Clearance 11 ml/min; Glucose 266 mg/dl (70-99); Potassium 4.4 mmol/L (3.5-5.1); Sodium 137 mmol/L (135-145); eGFR 8.62
--- NOTE | 2024-01-05 12:19 | HPS.HSE ---
Family Physician
-
Family Physician: Marie Balbuena
Chief Complaint
-
expressive aphasia
slurred speech
History of Present Illness
78-year-old female with past medical history for end-stage renal disease on dialysis Tuesday, hypertension, hyperlipidemia, type 2 diabetes, atrial fib presents with an episode of expressive aphasia and slurred speech which lasted
for 30-40 minutes. denied any numbness, tingling. Patient has chronic blurry vision. Denied any weakness to lower extremities or upper extremities. Denies any headache, dizziness, syncopal episode. Patient denied any chest pain or short of
breath. Patient denied abdominal pain, nausea, vomiting, diarrhea. Patient denied dysuria,hematuria.
CT head with no acute findings. admitting for further management.
Medical History
Past Medical History
Past Medical History: Reports Other
Additional Past Medical History:
Coronary artery disease
Type 2 diabetes
Hypertension
Hyperlipidemia
End-stage renal disease
Stenosis
Vertigo
CVA
Pulmonary sarcoid
Lumbar spinal stent and A-fib
Past Surgical History: Reports Other
Additional Past Surgical History:
Hysterectomy
Left breast lumpectomy
coronary artery stent
Social History
Tobacco: Non-smoker
Alcohol: None
Drug: None
Personal:
Living: With Family
Family History
Family History: Not pertinent
Allergies / Home Medications
Allergies reflects when Allergies were last updated in [facility].
Home Medications with original date entered in [facility]
Allergy/Medication List:
Allergies
Allergy/AdvReac Type Severity Reaction Status Date / Time
Iodinated Contrast Media Allergy Hives/RASH Verified 01/05/24 11:08
[Iodinated Contrast- Oral
and IV Dye]
Home Medications
pantoprazole 40 mg tablet,delayed release 40 mg PO DAILY Gastrointestinal issue 07/27/21
bumetanide 1 mg tablet 1 mg PO DAILY Fluid Retention/Swelling 07/01/22
sevelamer HCl 800 mg tablet 800 mg PO MEALS Kidney Disease 07/30/22
apixaban 5 mg tablet (Eliquis) 5 mg PO BID #60 tabs 08/16/22
carvedilol 6.25 mg tablet 6.25 mg PO BID Blood Pressure 03/09/23
cholecalciferol (vitamin D3) 50 mcg (2,000 unit) tablet (Vitamin D3) 50 mcg PO DAILY Supplement 03/09/23
atorvastatin 80 mg tablet 80 mg PO QPM High Cholesterol 05/13/23
diphenoxylate-atropine 2.5 mg-0.025 mg tablet (Lomotil) 1 tab PO QIDPRN PRN diarrhea 01/05/24
insulin detemir U-100 100 unit/mL (3 mL) subcutaneous pen 32 unit SC HS 01/05/24
lorazepam 1 mg tablet 1 mg PO DAILY anxiety 01/05/24
Review of Systems
-
Constitutional: Reports No Symptoms
EENT: Reports No Symptoms
Respiratory: Reports No Symptoms
Cardiac: Reports No Symptoms
Abdomen/GI: Reports No Symptoms
: Reports No Symptoms
Musculoskeletal: Reports No Symptoms
Skin: Reports No Symptoms
Neurological: Reports Other (slurred speech, expressive aphasia)
Endocrine: Reports No Symptoms
Hematologic/Lymphatic: Reports No Symptoms
Psych: Reports No Symptoms
Physical Exam
Vital Signs
Vital Signs
Temp Pulse Resp BP Pulse Ox
97.9 F 75 21 167/94 98
01/05/24 11:09 01/05/24 11:16 01/05/24 11:16 01/05/24 11:16 01/05/24 11:16
Physical Exam
General: Well Developed, Well Nourished and No Apparent Distress
HEENT: NormoCephalic, Moist mucous membranes and Atraumatic
Respiratory: Clear
Cardiac: S1/S2 and Regular Rhythm; No Murmur or Rub
GI: Soft, Non Tender, Non Distended and Normal Bowel Sounds; No Organomegaly
Rectal: Deferred by Provider
Musculoskeletal: No Clubbing, No Cyanosis and No Edema
Skin: No Rash
Neuro: AO x 3 and Nonfocal/grossly intact
Psych: Calm
Laboratory Results
-
01/05/24 11:14
01/05/24 11:14
Laboratory Results
PT 17.7 Sec (11.4-14.6) H 01/05/24 11:14
INR 1.40 01/05/24 11:14
APTT 38.4 Sec (23.4-35.0) H 01/05/24 11:14
Data Reviewed
-
CT Scan: Report Reviewed by me
Lab Data: Labs Reviewed by me
Impression/Plan
-
#expressive aphasia r/o TIA
-head CT with No acute intracranial abnormality noted.Mild periventricular small vessel ischemic disease. Stable.Right frontal meningioma. Stable.
-Obtain MRI
-Obtain A1c, lipid profile
- Statin continued
-On Eliquis
-Neurology consulted
#hypertension emergency
-hydralazine added
# ESRD on hemodialysis M, W, F
-Renal consulted
-Continue Bumex
-Continue sevelamer
# Paroxysmal atrial fibrillation-Eliquis, Coreg
# CAD status post stents
-Continue Coreg
-Continue Eliquis
# IDDM
# Hyperglycemia on admission
-Sliding scale
-Levemir 32 units continued
-CHO diet
# Hyperlipidemia
Continue statin
# Sarcoidosis-pulmonary- diagnosed 1990s-No Biopsy
# Moderate discogenic degenerative disease at C3/C4 and severe discogenic degenerative disease at C4/C5 with loss of intervertebral disc space height and vertebral body endplate osteophytes
# History of left lumpectomy 2016
# Anxiety
-Ativan continued
# GERD
-Continue Protonix
# Hysterectomy with early stage uterine cancer
# History of frontal meningioma on imaging, stable
# Spinal stenosis/arthritis
# Obesity per BMI
# Ex-smoker
#Full code
#DVT prophylaxis Eliquis
--- NOTE | 2024-01-05 12:42 | CON.NEURO ---
Neuro Assessment/Plan
Assessment
Recurrent episodes of aphasia beginning in 2021 with this event representing the third.
Differential diagnosis would include TIA although this is less likely based on the patient's current anticoagulation. Prior episodes were also normal with regards to MRI of brain on 2 occasions. Additional possibilities include metabolic
disturbance as the cause in this patient with chronic renal failure and hemodialysis as well as conversion disorder, and seizure.
Plan
Check blood work for potential metabolic causes including low B12 level which appeared to be present in May 2023
We will follow MRI of brain results
Check orthostatic blood pressures with consideration for tilt table testing
Provide thiamine
Check EEG for possible seizure activity producing symptomatology
Will follow
Consultation
Order
Date of Consultation: 01/05/24
Requesting Provider: Hospitalists
Reason for Consult: Aphasia
Subjective/Objective
Subjective Data
Date of Service: January 05, 2024
Adapted from my consultation in May 2023:
'Date of Consultation: 05/15/23
Requesting Provider: Hospitalists
Reason for Consult: Speech change
R-handed
'My knees give out,' with walking.
2 days prior to admission, she had an episode of visually hallucinating a pot of ocasio.
She presented to the emergency room with multiple falls and a problem with speech since yesterday. She has been feeling generally weak and has been falling off the bed and falling off her wheelchair. On the day of admission, while trying to get into
wheelchair to go to dialysis she fell and therefore missed dialysis. Did notice that patient's been more weak in the left hand over the past few days.
Daughters have also noticed that patient has been having some altered mental status according to the chart, not confirmed by the patient. Did have some nausea earlier. Daughter is also noted some intermittent slurring of speech.
No recent changes to medications. Patient had a similar episode 2 years ago and was evaluated as below.
Patient has chronic weakness of the left upper extremity due to the AV fistula status post bypass. She has some chronic tingling in her left hand which is stable. No known modifying factors. No known other additional associated symptoms.
Adapted from a combination of my esteemed colleagues� notes:
DATE/TIME OF CONSULTATION: 09/05/21 at 915
Reason for Consultation: stroke alert
75-year-old female with several vascular risk factors including diabetes, ESRD, and hypertension brought in yesterday after dialysis. Her last known normal was around 4 PM. Shortly thereafter family noted that she was disoriented, that her speech
had become 'gibberish' and she was answering 'yes and okay' to all questions. EMS was called. Per the ED, her blood glucose in the field was 300. I was notified at 5:15 PM of the case from the ED doctor. On exam she had receptive aphasia with right
hemineglect and right facial weakness. Family agreed to alteplase which was administered. No large vessel occlusion was seen on CTA so she was not a candidate for thrombectomy. On exam today she has no clear aphasia other than inability to name 1
drawing. She has no weakness or hemineglect. She does have some mild right facial droop. She states that she feels back to her baseline and does not remember the details of yesterday's events.
Diagnosis:
CECI GARRISON is a 75 year old F who has presented to the hospital with right facial weakness, right hemineglect and aphasia concerning for left hemispheric ischemic stroke of left MCA territory, likely atherothrombotic. Her aphasia and hemineglect
have resolved status post alteplase. Per EMS her blood glucose was very elevated at 300 which could have also caused focal deficits. MRI brain showed no evidence of stroke.
On CTA left-sided ICA approximately 45 to 50% stenosis, right ICA with approximately 47% ICA stenosis
Moderate cavernous segment intracranial stenosis on the carotid artery bilaterally
Hemoglobin A1c is 5.7 LDL is 87
MRI brain finding some possible cervical spinal cord compression which appears completely asymptomatic
Etiology for this episode it was a true TIA with the atheroembolic or cardioembolic etiologies, alternatively could simply be due to hyperglycemia producing acute neurologic deficits
Continue increased dose of atorvastatin to 80 mg daily goal less than 70 her LDL is 87
She reports she has been on aspirin and clopidogrel both for least a few years, from my standpoint requires dual antiplatelet therapy beyond 09/27 which would be 3 weeks of DAPT therapy after possible TIA'
Patient previously received Alteplase as stated above. Patient returned to this hospital's emergency department today with another episode of expressive aphasia and slurred speech which spontaneously resolved within 30 minutes. Eating breakfast,
unable to place waffles on fork then speech problem followed. Had AFib at HD yesterday, discovered due to shaking in stomach, had missed dose of Apixaban in AM yesterday.
Objective Data
Vital Signs
Temp Pulse Resp BP Pulse Ox
36.6 C 75 21 167/94 98
01/05/24 11:09 01/05/24 11:16 01/05/24 11:16 01/05/24 11:16 01/05/24 11:16
Lab Results
01/05/24 11:14
01/05/24 11:14
PT 17.7 Sec (11.4-14.6) H 01/05/24 11:14
INR 1.40 01/05/24 11:14
APTT 38.4 Sec (23.4-35.0) H 01/05/24 11:14
Sodium 137 mmol/L (135-145) 01/05/24 11:14
Potassium 4.4 mmol/L (3.5-5.1) 01/05/24 11:14
BUN 23 mg/dl (7-17) H 01/05/24 11:14
Glucose 266 mg/dl (70-99) H 01/05/24 11:14
Calcium 9.4 mg/dl (8.4-10.2) 01/05/24 11:14
Patient Allergies
Iodinated Contrast Media [Iodinated Contrast- Oral and IV Dye] Allergy (Verified 01/05/24 11:08)
Hives/RASH
CVA Assessment
Onset of Stroke Symptoms
Date of onset of symptoms: 01/05/24
Time of onset of symptoms: 10:30
Time pt last seen normal is known: Yes
Date last time pt seen normal: 01/05/24
Time last time pt seen normal: 10:30
Review of Systems
-
History Source: Patient
All other systems: Reviewed and negative
EENT: Blurry Vision (in left eye); Negative Swallowing Difficulty
Respiratory: Negative Trouble Breathing
Cardiac: Negative Chest Pain
Neuro: Negative Dizzy or Headache
Physical Exam
-
General: No Apparent Distress and Appears Stated Age
Eyes: OU Absent Papilledema, Round OU, [place] Conjunctivae and No Ptosis
HEENT: Anicteric and Moist Mucous Membranes
Neck: Full Range of Motion
Respiratory: No Dyspnea
Cardiac: No JVD
GI: Non-distended
Skin: Unremarkable
Extremities: No Clubbing, No Cyanosis and No Edema
Psych: Negative Intact Judgement/Insight
Extended Neurological Exam
Mood & Affect: Negative Affect Unremarkable (Easily irritable)
Attention Span & Concentration: Awake, Alert, Interactive and No Difficulty with 2 Step Request
Memory: Able to Recall (Month and year without difficulty)
Tremor: Head Tremor Absent, Amplitude (left hand medium-high amplitude) and With Action
Speech: Quantity Unremarkable and Rate of Production Unremarkable; Negative Pressured or Hoarse
Cranial Nerve II: Left Eye: Pupillary Reactivity Unremarkable, Pupillary Size Unremarkable and Visual [place] Intact
Cranial Nerve II: Right Eye: Pupillary Reactivity Unremarkable, Pupillary Size Unremarkable and Visual [place] Intact
Cranial Nerves III, IV, : Extraocular Movement: Extraocular Movement Full in all Directions
Cranial Nerve VII: Facial Symmetry: Normal Facial Symmetry
Cranial Nerve VIII: Hearing: Unremarkable Hearing to Normal Conversational Volume
Cranial Nerves IX, X: Palate Movement: Palate Elevation Symmetric
Cranial Nerve XII: Tongue Protusion: Midline
Muscle Strength, Overall: Full Throughout and Otherwise Intact
Muscle Bulk & Tone: Bulk Unremarkable and Tone Unremarkable
Pronator Drift: No Drift in Upper Extremities and No Drift in Lower Extremities
Deep Tendon Reflexes: Absent Throughout
Touch Sensation: Unremarkable
Coordination: Lupvfm-oque-ghrswn Testing Unremarkable and Vvns-Fkmu-Qlpt movements intact bilaterally
Babinski Sign: Absent Bilaterally
Data Reviewed
-
CT Head: Report Reviewed
Labs: Report Reviewed
Lipid Profile: Ordered
Reviewed with: Nurse Practioner, Patient and Family
Old Records: Summarized
Medications
-
Active Medications
Generic Name Dose Route Start Last Admin
Trade Name Freq PRN Reason Stop Dose Admin
Hydralazine HCl 10 mg 01/05/24 12:41
Hydralazine 20 Mg/Ml Vial IV 01/05/24 12:42
NOW STA
Home Medications
�Medication �Instructions �Recorded
pantoprazole 40 mg tablet,delayed 40 mg PO DAILY Gastrointestinal 07/27/21
release issue
bumetanide 1 mg tablet 1 mg PO DAILY Fluid 07/01/22
Retention/Swelling
sevelamer HCl 800 mg tablet 800 mg PO MEALS Kidney Disease 07/30/22
apixaban 5 mg tablet (Eliquis) 5 mg PO BID #60 tabs 08/16/22
carvedilol 6.25 mg tablet 6.25 mg PO BID Blood Pressure 03/09/23
cholecalciferol (vitamin D3) 50 50 mcg PO DAILY Supplement 03/09/23
mcg (2,000 unit) tablet (Vitamin
D3)
atorvastatin 80 mg tablet 80 mg PO QPM High Cholesterol 05/13/23
diphenoxylate-atropine 2.5 1 tab PO QIDPRN PRN diarrhea 01/05/24
mg-0.025 mg tablet (Lomotil)
insulin detemir U-100 100 unit/mL 32 unit SC HS 01/05/24
(3 mL) subcutaneous pen
lorazepam 1 mg tablet 1 mg PO DAILY anxiety 01/05/24
Past History
Past History
ED Past Medical History: Arrthythmia (Afib), CAD, CVA, HTN, Hypercholesterolemia, NIDDM, Renal failure, Psychiatric (anxiety) and Other (pulmonary sarcoid 1990s, LUE AVF, COVID-19, HD, Cirrhosis, right frontal lobe meningioma)
ED Past Surgical History: Cardiac (Stent 2017), Gynecological (Hysterectomy, BSO) and Other (Left breast lumpectomy 2016, left arm fistula 2020)
Patient has exhibited threatening behavior?: No
PSI?: No
Social History
Tobacco: Former smoker
Alcohol: None
Drug: None
Personal:
Living: with family
Employment: Not employed
Family History
Family History: Other (reviewed and non-contributory)
[2024-01-05] MEDS: APRESOLINE 10 MG IV (12:49)
--- NOTE | 2024-01-05 13:10 | W.PN.UPDATE ---
Update Note
Progress Note Update
This is an addendum to the H&P written by Alba Wiley on 01/05/2024.� Patient seen and examined independently with PRODUCTION CONTROL PEGBOARD CLERK.
78-year-old female past medical history of paroxysmal atrial fibrillation, CAD status post stents, hypertension, ESRD on hemodialysis Tuesday, visit, Tuesday,, type 2 diabetes, anemia, neuropathy, hypercholesteremia, GERD, anxiety, meningioma, spinal
stenosis, sarcoidosis, probable cirrhosis, presenting with slurred speech and expressive aphasia this morning lasting 30 minutes since resolved.
Patient states her blood pressure is usually well-controlled.
Patient was admitted in May of this year for change in mental status and hallucinations.� MRI of brain at that time was unremarkable.
Blood pressure initially 167/94 [address] head shows no acute abnormality.� There is stable right frontal meningioma.
Neurological examination unremarkable at this time.� Presentation consistent with�TIA.� Continue Eliquis.� Check UA.�Check MRI brain.� Neurology consulted.� As needed hydralazine for elevated blood pressure.� Nephrology consulted for routine
dialysis tomorrow.
[2024-01-05 13:57] LABS: HDL Cholesterol 38 mg/dl; LDL Cholesterol, Calculated 142 mg/dl; Total Cholesterol 244 mg/dl (50-199); Triglyceride 324 mg/dl (10-149); Very Low Density Lipoprotein 64 mg/dl (0-30)
[2024-01-05 14:30] LABS: Erythrocyte Sed Rate 39 mm/hour (0-20)
[2024-01-05 15:47] LABS: TSH Reflex To Free T4 2.34 uIU/ml (0.47-4.68)
--- NOTE | 2024-01-05 16:15 | W.CON.NEPH ---
Consultation
-
Date/Time Consultation Requested: 01/05/24 1310
Date/Time Consultation Performed: 01/05/24 1700
Requesting Provider: Stefan Villanueva MD
Performing Provider: Emily Murillo
Reason for Consultation: ESRD
Medical History
-
Chief Complaint: exp aphasia
History of Present Illness:
Patient is a 77-year-old female with a past medical history of end-stage renal disease. She is maintained on dialysis every Tuesday and Tuesday at [facility]. She has a longstanding history of diabetes maintained on insulin
therapy. She is maintained on Eliquis in the setting of her atrial fibrillation, Anemia, neuropathy, HLD on statin therapy, GERD on PPI, Anxiety, Meningioma no interventions, spinal stenosis, sacroidosis, ?cirrhosis Presented with a slurred speech
and expressive aphasia this morning lasting for 30 minutes, CT head negative for acute CVA. She had similar episodes in the past, last MRI was in May. she reports having missing Eliquis dose yesterday morning, and she felt A. fib during dialysis
yesterday. But denies any palpitations currently. EKG shows sinus. She is seen by neurology and recommending to get MRI. Nephrology consult for dialysis needs.
No fevers or chills, cough, shortness of breath or chest pain. No WANG or blurry vision, no vomiting or abdominal pain or diarrhea or urinary symptoms.
Patient has chronic weakness of the left upper extremity due to the AV fistula status post bypass. She has some chronic tingling in her left hand.
Past Medical History
End-stage renal disease
Left upper extremity AV fistula
Diabetes
Hypertension
Hyperphosphatemia
Anemia
Atrial fibrillation
Coronary artery disease with prior stenting
Chronic liver disease
Anxiety
Pulm sarcoid
vertigo
TIA
meningioma
spinal stenosis
Past Surgical History: Other (Hysterectomy Left breast lumpectomy coronary artery stent, left UE AVF)
Social History
Tobacco: Non-Smoker
Alcohol: None
Personal:
Living: With Family
Family History
No chronic kidney disease
Allergies / Home Medications
Allergy/AdvReac Type Severity Reaction Status Date / Time
Iodinated Contrast Media Allergy Hives/RASH Verified 01/05/24 11:08
[Iodinated Contrast- Oral
and IV Dye]
�Medication �Instructions �Recorded �Confirmed �Type
pantoprazole 40 mg tablet,delayed 40 mg PO DAILY Gastrointestinal 07/27/21 01/05/24 History
release issue
bumetanide 1 mg tablet 1 mg PO DAILY Fluid 07/01/22 01/05/24 History
Retention/Swelling
sevelamer HCl 800 mg tablet 800 mg PO MEALS Kidney Disease 07/30/22 01/05/24 History
apixaban 5 mg tablet (Eliquis) 5 mg PO BID #60 tabs 08/16/22 01/05/24 Rx
carvedilol 6.25 mg tablet 6.25 mg PO BID Blood Pressure 03/09/23 01/05/24 History
cholecalciferol (vitamin D3) 50 50 mcg PO DAILY Supplement 03/09/23 01/05/24 History
mcg (2,000 unit) tablet (Vitamin
D3)
atorvastatin 80 mg tablet 80 mg PO QPM High Cholesterol 05/13/23 01/05/24 History
diphenoxylate-atropine 2.5 1 tab PO QIDPRN PRN diarrhea 01/05/24 01/05/24 History
mg-0.025 mg tablet (Lomotil)
insulin detemir U-100 100 unit/mL 32 unit SC HS 01/05/24 01/05/24 History
(3 mL) subcutaneous pen
lorazepam 1 mg tablet 1 mg PO DAILY anxiety 01/05/24 01/05/24 History
Review of Systems
-
All complete 12 point review of system have been inquired and found negative other than stated in HPI
Physical Exam
Vital Signs
Vital Signs
Temp Pulse Resp BP Pulse Ox
98.5 F 76 16 124/85 99
01/05/24 14:27 01/05/24 14:27 01/05/24 14:27 01/05/24 14:27 01/05/24 14:27
Lab Results
WBC 4.7 10^3/uL (4.8-10.8) L 01/05/24 11:14
RBC 3.98 10^6/uL (4.20-5.40) L 01/05/24 11:14
Hgb 12.3 g/dL (12.0-16.0) 01/05/24 11:14
Hct 36.3 % (37.0-47.0) L 01/05/24 11:14
Plt Count 176 10^3/uL (130-400) 01/05/24 11:14
Sodium 137 mmol/L (135-145) 01/05/24 11:14
Potassium 4.4 mmol/L (3.5-5.1) 01/05/24 11:14
Chloride 93 mmol/L (98-107) L 01/05/24 11:14
Carbon Dioxide 32 mmol/L (22-30) H 01/05/24 11:14
BUN 23 mg/dl (7-17) H 01/05/24 11:14
Creatinine 4.9 mg/dL (0.6-1.0) H* 01/05/24 11:14
eGFR 8.62 01/05/24 11:14
Glucose 266 mg/dl (70-99) H 01/05/24 11:14
Calcium 9.4 mg/dl (8.4-10.2) 01/05/24 11:14
CT head:
IMPRESSION:
No acute intracranial abnormality noted.
Mild periventricular small vessel ischemic disease. Stable.
Right frontal meningioma. Stable.
Physical Exam
General: Awake, Alert, Oriented, AOx3, No Distress and Nontoxic
HEENT: EOMI, Anicteric, Conjunctivae Clear, Facial Symmetry and No JVD
Respiratory: Clear, Normal Excursion and Nonlabored Respirations
Cardiac: S1/S2 and Regular Rate/Rhythm
Breast: Deferred by me
Abdomen: Soft, Nontender and Nondistended
Musculoskeletal: No Cyanosis and No Edema
Skin: No Rash
Neuro: Nonfocal/Grossly Intact
Psych: Mood/afflect pleasant, Insight/judgement good and Appropriate
Vascular Access: AVF
Data Reviewed
-
Radiology: Report Reviewed by me and Discussed with Patient
Labs: Labs Reviewed by me and Discussed with Patient
Assessment/Plan
-
Impression:
expressive aphasia r/o TIA
hypertension urgency
ESRD on hemodialysis M, W, F
Paroxysmal atrial fibrillation-Eliquis
CAD status post stents
IDDM
Hyperlipidemia
Sarcoidosis-pulmonary- diagnosed -No Biopsy
Moderate discogenic degenerative disease at C3/C4 and severe discogenic degenerative disease at C4/C5 with loss of intervertebral disc space height and vertebral body endplate osteophytes
History of left lumpectomy 2016
Anxiety
GERD
Hysterectomy with early stage uterine cancer
History of frontal meningioma
Spinal stenosis/arthritis
Obesity per BMI
Left upper extremity AV
Hyperphosphatemia
Plan:
A/w brief episode of aphasia
CVA w/u per neuro, MRI ordered
will schedule HD tomorrow
BP improving now, resume home meds
chronically high BP pre HD and drops after HD
Maintain phosphate binders with meals for hyperphosphatemia
renal diet and FR
[2024-01-05 16:22] LABS: Folate 6.1 ng/ml (2.76-20); Vitamin B12 409 pg/ml (239-931)
[2024-01-05] MEDS: LIPITOR 80 MG PO (17:40)
[2024-01-05] MEDS: VITAMIN B1 100 MG PO (17:40)
[2024-01-05] MEDS: RENVELA PO ×2 (17:41→17:48)
[2024-01-05] MEDS: NOVOLOG FLEXPEN-LOW RESISTANCE 4 UNITS SC (17:44)
[2024-01-05 17:46] LABS: Glucose - Point of Care 311 mg/dl (70-99)
[2024-01-05] MEDS: COREG 6.25 MG PO (19:49)
[2024-01-05] MEDS: ELIQUIS 5 MG PO (19:50)
[2024-01-05 21:41] LABS: Glucose - Point of Care 234 mg/dl (70-99)
[2024-01-05] MEDS: LANTUS 0.32 UNITS SC (21:50)
[2024-01-05] MEDS: ATIVAN 1 MG PO (21:50)
[2024-01-06] VITALS (8 sets, daily range): BP systolic 141–185; BP diastolic 57–88; PULSE 59–78
[2024-01-06 03:51] LABS: Urine Albumin 3+ (Neg - Trace); Urine Bilirubin Negative (Negative); Urine Character Clear (Clear); Urine Color Yellow; Urine Glucose 2+ (Negative); Urine Ketone Negative (Negative); Urine Leukocyte 1+ (Negative); Urine Nitrite Negative (Negative); Urine Occult Blood Trace (Negative); Urine Urobilinogen Negative (Neg - 1+)
[2024-01-06 04:24] LABS: Urine Bacteria Moderate (Negative); Urine Squamous Cell >30 /LPF (Few); Urine White Cell 26-30 /HPF (0-5)
--- NOTE | 2024-01-06 05:58 | PTCARENOTE ---
Pt BP elevated throughout the night, asymptomatic. Pt typically high before HD which she will receive today. NOXIOUS WEEDS AND PEST INSPECTOR aware.
[2024-01-06 06:54] LABS: Blood Urea Nitrogen 31 mg/dl (7-17); Calcium 8.9 mg/dl (8.4-10.2); Carbon Dioxide 29 mmol/L (22-30); Chloride 95 mmol/L (98-107); Estimated Creatinine Clearance 9 ml/min; Glucose 189 mg/dl (70-99); Potassium 4.1 mmol/L (3.5-5.1); Sodium 135 mmol/L (135-145); eGFR 6.63
--- NOTE | 2024-01-06 07:07 | W.PN.HOSP.TC ---
Today's Communication/Plan
-
HD as per Nephro
Glycemic Control
Brain MRI
EEG
Blood Pressure control
ST/PT/OT
Assessment / Plan
Assessment / Plan
Physical Exam
General: Well Developed, Well Nourished and No Apparent Distress
HEENT: NormoCephalic, Moist mucous membranes and Atraumatic
Respiratory: Clear
Cardiac: S1/S2 and Regular Rhythm; No Murmur or Rub
GI: Soft, Non Tender, Non Distended and Normal Bowel Sounds; No Organomegaly
Musculoskeletal: No Clubbing, No Cyanosis and No Edema
Skin: No Rash
Neuro: AO x 3
Psych: Calm
78F ESRD MWF, HTN, HLD, DM, afib p/w episode expressive aphasia and slurred speech which lasted for 30-40 min. denied any numbness, tingling. Patient has chronic blurry vision. Denied any weakness to lower/upper extremities, headache, dizziness,
syncopal episode, any chest pain, SOB, abd pain, nausea, vomiting, diarrhea, dysuria, or hematuria. CT head noted no acute abn's.
#expressive aphasia r/o TIA
-head CT with No acute intracranial abnormality noted.Mild periventricular small vessel ischemic disease. Stable.Right frontal meningioma. Stable.
-Brain MRI pending
-A1c 7.9,
-lipid profile appreciated Hyperlipidemia LDL not at goal <70 for stroke risk prevention
-Statin continued
-On Eliquis
-Neurology consult appreciated thiamine supplementation, checking EEG, monitor orthostatic vitals (neg so far)
-ST/PT/OT eval
#HTN
#hypertensive urgency
-hydralazine prn
-cont home Bumex Coreg
# ESRD on hemodialysis M, W, F
-Renal consult appreciated
-cont HD as per Nephro
-Continue Bumex
-Continue sevelamer
# Paroxysmal atrial fibrillation
# CAD status post stents
cont Eliquis, Coreg
# IDDM
# Hyperglycemia on admission
-Sliding scale
-Levemir 32 units continued
-carb controlled diet
-Novolog 3U AC added
-monitor and titrate insulin regimen as necesary
# Hyperlipidemia
Continue statin
# Per reports Sarcoidosis-pulmonary- diagnosed 1990s-No Biopsy
# Moderate discogenic degenerative disease at C3/C4 and severe discogenic degenerative disease at C4/C5 with loss of intervertebral disc space height and vertebral body endplate osteophytes
# History of left lumpectomy 2017
# Anxiety
-Ativan continued
# GERD
-Continue Protonix
# Hysterectomy with early stage uterine cancer
# History of frontal meningioma on imaging, stable
# Spinal stenosis/arthritis
# Obesity per BMI
# Ex-smoker
#Full code
#DVT prophylaxis Eliquis
I spent a total of 50 minutes with the patient or on the floor. More than 50% of this time involved counseling and coordination of care.
Anticipated Discharge: 24 - 48 hours
Subjective/Interval History
-
Date of Service: January 06, 2024
Seen and examined at bedside in no acute distress, resting comfortably in bed during dialysis. Reports resolution of aphasia. Overall reports feeling well.
Objective Data
-
Labs:
Laboratory Results
01/06/24
04:51
Sodium 135
Potassium 4.1
Chloride 95 L
Carbon Dioxide 29
BUN 31 H
Creatinine 6.1 H*
Glucose 189 H
Calcium 8.9
Vital Signs:
Vital Signs
Temp Pulse Resp BP Pulse Ox
98.3 F 64 19 176/61 97
01/06/24 03:14 01/06/24 03:14 01/06/24 03:14 01/06/24 03:14 01/06/24 03:14
I&O
01/05/24 01/06/24 01/07/24
06:59 06:59 06:59
Intake Total 700 / 700
Balance 700 / 700
[2024-01-06 07:22] LABS: Glucose - Point of Care 210 mg/dl (70-99)
[2024-01-06] MEDS: NOVOLOG FLEXPEN-LOW RESISTANCE 2 UNITS SC (08:43)
[2024-01-06] MEDS: RENVELA 800 MG PO ×2 (08:44→17:06)
[2024-01-06 10:12] LABS: Glycohemoglobin (HgbA1c) 7.9 % (4.0-5.6)
--- NOTE | 2024-01-06 10:26 | W.PN.NEPH.HD ---
Addendum entered and electronically signed by Emily Garcia MD 01/06/24 10:36:
HR chronically runs low , on BB with h/o afib
likely add hydralazine if BP high post HD
Original Note:
Assessment
-
pt seen during HD
vitals stable
BP high , may need adjustment of meds
MRI per neuro
AVF functions well
Progress Note - Hemodialysis
-
Date of Service: January 06, 2024
Duration: 30 minutes and 3 hours
Potassium Bath: 3
Calcium Bath: 2.5
Opti-Dialyzer: 160
Ultrafiltration: Other (1.5-2.5)
Blood Flow: 400
Dialysate Flow: 600
Heparin: no
EPO: no
[2024-01-06 12:08] LABS: Glucose - Point of Care 142 mg/dl (70-99)
[2024-01-06] MEDS: ELIQUIS 5 MG PO ×2 (12:25→20:04)
[2024-01-06] MEDS: PROTONIX 40 MG PO (12:25)
[2024-01-06] MEDS: ATIVAN 1 MG PO (12:25)
[2024-01-06] MEDS: VITAMIN B1 100 MG PO (12:25)
[2024-01-06] MEDS: BUMEX 1 MG PO (12:26)
[2024-01-06] MEDS: COREG 6.25 MG PO ×2 (12:27→20:03)
[2024-01-06] MEDS: RENVELA PO (12:28)
[2024-01-06] MEDS: NOVOLOG FLEXPEN 3 UNITS SC ×2 (12:48→17:05)
[2024-01-06] MEDS: NOVOLOG FLEXPEN-LOW RESISTANCE SC (12:49)
--- NOTE | 2024-01-06 15:28 | CM ---
Met with pt at bedside
Pt reports she lives with her in a 1 story home; 1 step to enter
Reports independent with ADL's, no device at home when ambulating - will use cane outside home, assists with resident service coordinator
DME - transport chair, single point cane, rolling walker, shower chair, shower rails
SNF - denies past hx
HH - [facility] in past
Has ride at d/c
PCP - Marie Balbuena
Pharm - [facility]
HD - MWF at [facility] - or family member transport
Discussed DRAPER
PT/OT recs pending
Plan - anticipate home with VN when medically stable
[2024-01-06 17:01] LABS: Glucose - Point of Care 307 mg/dl (70-99)
[2024-01-06] MEDS: LIPITOR 80 MG PO (17:06)
[2024-01-06] MEDS: NOVOLOG FLEXPEN-LOW RESISTANCE 4 UNITS SC (17:06)
[2024-01-06 22:05] LABS: Glucose - Point of Care 172 mg/dl (70-99)
[2024-01-06] MEDS: LANTUS 0.32 UNITS SC (23:05)
[2024-01-07 03:03] VITALS: BP 172/73
[2024-01-07 05:54] VITALS: BMI 36.7
[2024-01-07 06:45] LABS: Hematocrit 31.2 % (37.0-47.0); Hemoglobin 10.7 g/dL (12.0-16.0); Mean Corp Hgb Conc. 34.3 g/dL (33.0-37.0); Mean Corpuscular Volume 90.4 fL (81.0-99.0); Mean Platelet Volume 10.8 fL (7.4-10.4); Platelet Count 156 10^3/uL (130-400); Red Blood Cell Count 3.45 10^6/uL (4.20-5.40); Red Cell Dist. Width 13.7 % (11.5-14.5); White Blood Cell Count 4.5 10^3/uL (4.8-10.8)
[2024-01-07 07:09] LABS: Blood Urea Nitrogen 25 mg/dl (7-17); Carbon Dioxide 28 mmol/L (22-30); Chloride 95 mmol/L (98-107); Estimated Creatinine Clearance 12 ml/min; Glucose 146 mg/dl (70-99); Magnesium 1.9 mg/dl (1.6-2.3); Phosphorus 3.9 mg/dl (2.5-4.5); Potassium 4.4 mmol/L (3.5-5.1); Sodium 134 mmol/L (135-145); eGFR 9.54
[2024-01-07 07:34] LABS: Glucose - Point of Care 158 mg/dl (70-99)
[2024-01-07 08:23] VITALS: BP 174/76
--- NOTE | 2024-01-07 08:40 | PTOTSP ---
Attempted to see patient for evaluation - patient adamantly refused despite explanation of purpose, stating she has no mobility deficits and no changes from her baseline. PCT confirmed she recently walked to/from the bathroom this morning without
difficulty. PT will sign off at this time. Patient is aware our services are available if needs arise.
--- NOTE | 2024-01-07 09:02 | W.PN.HOSP.TC ---
Today's Communication/Plan
-
discharge
Assessment / Plan
Assessment / Plan
Physical Exam
General: no acute distress, appears comfortable, obese
HEENT: NormoCephalic, Moist mucous membranes and Atraumatic
Respiratory: Clear
Cardiac: S1/S2 and Regular Rhythm; No Murmur or Rub
GI: Soft, Non Tender, Non Distended and Normal Bowel Sounds; No Organomegaly
Musculoskeletal: No Clubbing, No Cyanosis and No Edema
Skin: No Rash
Neuro: AO x 3
Psych: Calm
78F ESRD MWF, HTN, HLD, DM, afib p/w episode expressive aphasia and slurred speech which lasted for 30-40 min. denied any numbness, tingling. Patient has chronic blurry vision. Denied any weakness to lower/upper extremities, headache, dizziness,
syncopal episode, any chest pain, SOB, abd pain, nausea, vomiting, diarrhea, dysuria, or hematuria. CT head noted no acute abn's.
#expressive aphasia r/o TIA
-symptom since resolved
-head CT with No acute intracranial abnormality noted.Mild periventricular small vessel ischemic disease. Stable.Right frontal meningioma. Stable.
-Brain MRI results appreciated no acute abn's/changes
-A1c 7.9
-lipid profile appreciated Hyperlipidemia LDL not at goal <70 for stroke risk prevention
-Statin continued
-On Eliquis
-Neurology consult appreciated empiric thiamine supplementation provided since completed, orthostatic vitals (neg so far), outpatient tilt table and EEG recommended (EEG was offered inpt however patient refused in favor of outpt eval)
-patient refusing evaluations ST/PT/OT
#HTN
#hypertensive urgency
-hydralazine prn
-cont home Bumex Coreg
-25 mg Hydralazine BID started as per Nephro, to be held AM of dialysis sessions.
# ESRD on hemodialysis M, W, F
-Renal consult appreciated
-cont HD as per Nephro
-Continue Bumex
-Continue sevelamer
# Paroxysmal atrial fibrillation
# CAD status post stents
cont Eliquis, Coreg
# IDDM
# Hyperglycemia on admission
-Sliding scale
-Levemir 32 units continued
-carb controlled diet
-Novolog 3U AC added
-monitor and titrate insulin regimen as necessary
# Hyperlipidemia
Continue statin
# Per reports Sarcoidosis-pulmonary- diagnosed 1990s-No Biopsy
# Moderate discogenic degenerative disease at C3/C4 and severe discogenic degenerative disease at C4/C5 with loss of intervertebral disc space height and vertebral body endplate osteophytes
# History of left lumpectomy 2016
# Anxiety
-Ativan continued
# GERD
-Continue Protonix
# Hysterectomy with early stage uterine cancer
# History of frontal meningioma on imaging, stable
# Spinal stenosis/arthritis
# Obesity per BMI
# Ex-smoker
#Full code
#DVT prophylaxis Eliquis
Medically stable for discharge home with outpatient follow up recommendations
Discussed with patient and patient's Joseenriqueta
Total Time Preparing Discharge ___40____ minutes including examination of the patient, summary of the hospital stay, instructions for continuing care to all relevant caregivers; and preparation of discharge records, prescriptions, and referral
forms if necessary.
Anticipated Discharge: Today
Subjective/Interval History
-
Date of Service: January 07, 2024
Seen and examined at bedside in no acute distress sitting up comfortably in bed. Overall reports feeling well, denies new acute issues. Eager to go home.
Objective Data
-
Labs:
Laboratory Results
01/07/24
05:09
WBC 4.5 L
Hgb 10.7 L
Hct 31.2 L
Plt Count 156
Sodium 134 L
Potassium 4.4
Chloride 95 L
Carbon Dioxide 28
BUN 25 H
Creatinine 4.5 H*
Glucose 146 H
Calcium 9.0
Vital Signs:
Vital Signs
Temp Pulse Resp BP Pulse Ox
98.0 F 56 16 174/76 98
01/07/24 08:23 01/07/24 08:23 01/07/24 08:23 01/07/24 08:23 01/07/24 08:23
I&O
01/06/24 01/07/24 01/08/24
06:59 06:59 06:59
Intake Total 700 / 700 1020 / 1020
Balance 700 / 700 1020 / 1020
[2024-01-07] MEDS: NOVOLOG FLEXPEN 3 UNITS SC ×2 (09:20→13:02)
[2024-01-07] MEDS: ELIQUIS 5 MG PO (09:21)
[2024-01-07] MEDS: NOVOLOG FLEXPEN-LOW RESISTANCE 1 UNITS SC (09:21)
[2024-01-07] MEDS: BUMEX 1 MG PO (09:22)
[2024-01-07] MEDS: RENVELA 800 MG PO ×2 (09:22→13:02)
[2024-01-07] MEDS: PROTONIX 40 MG PO (09:22)
[2024-01-07] MEDS: COREG 6.25 MG PO (09:22)
[2024-01-07] MEDS: VITAMIN B1 100 MG PO (09:22)
--- NOTE | 2024-01-07 09:22 | W.PN.NEURO.1 ---
Today's Communication / Plan
-
Start cyanocobalamin due to relatively low vitamin B12 level, again
We will follow MRI of brain results
Eventual tilt table testing if MRI brain is read as unremarkable
Providing thiamine
Check EEG for possible seizure activity producing symptomatology
Neuro Assessment/Plan
Assessment
Recurrent episodes of aphasia beginning in 2021 with this event representing the third.
Differential diagnosis would include TIA although this is less likely based on the patient's current anticoagulation. Prior episodes were also normal with regards to MRI of brain on 2 occasions. Additional possibilities include metabolic
disturbance as the cause in this patient with chronic renal failure and hemodialysis as well as conversion disorder, and seizure.
Plan
Start cyanocobalamin due to relatively low vitamin B12 level, again
We will follow MRI of brain results
Eventual tilt table testing if MRI brain is read as unremarkable
Providing thiamine
Check EEG for possible seizure activity producing symptomatology
Will follow
Subjective/Objective
Subjective Data
Date of Service: January 07, 2024
Patient reports no new episodes
Objective Data
Vital Signs
Temp Pulse Resp BP Pulse Ox
36.7 C 56 16 174/76 98
01/07/24 08:23 01/07/24 08:23 01/07/24 08:23 01/07/24 08:23 01/07/24 08:23
Lab Results
01/07/24 05:09
01/07/24 05:09
PT 17.7 Sec (11.4-14.6) H 01/05/24 11:14
INR 1.40 01/05/24 11:14
APTT 38.4 Sec (23.4-35.0) H 01/05/24 11:14
Sodium 134 mmol/L (135-145) L 01/07/24 05:09
Potassium 4.4 mmol/L (3.5-5.1) 01/07/24 05:09
BUN 25 mg/dl (7-17) H 01/07/24 05:09
Glucose 146 mg/dl (70-99) H 01/07/24 05:09
Calcium 9.0 mg/dl (8.4-10.2) 01/07/24 05:09
Phosphorus 3.9 mg/dl (2.5-4.5) 01/07/24 05:09
LDL Cholesterol, Calc 142 mg/dl 01/05/24 11:14
Vitamin B12 409 pg/ml (239-931) 01/05/24 11:14
Patient Allergies
Iodinated Contrast Media [Iodinated Contrast- Oral and IV Dye] Allergy (Verified 01/05/24 11:08)
Hives/RASH
Review of Systems
-
History Source: Patient
All other systems: Reviewed and negative
Physical Exam
-
General: No Apparent Distress and Appears Stated Age
Eyes: Round OU, [place] Conjunctivae and No Ptosis
HEENT: Anicteric and Moist Mucous Membranes
Neck: Full Range of Motion
Respiratory: No Dyspnea
Cardiac: No JVD
GI: Non-distended
Skin: Unremarkable
Extremities: No Clubbing, No Cyanosis and No Edema
Extended Neurological Exam
Mood & Affect: Mood Unremarkable and Affect Unremarkable
Attention Span & Concentration: Awake, Alert and Interactive
Memory: Unremarkable
Tremor: Hand Tremor Absent and Head Tremor Absent
Speech: Quality Unremarkable and Quantity Unremarkable
Cranial Nerve II: Left Eye: Pupillary Size Unremarkable and Visual [place] Grossly Intact
Cranial Nerve II: Right Eye: Pupillary Size Unremarkable and Visual [place] Grossly Intact
Cranial Nerves III, IV, : Extraocular Movement: Grossly Intact
Cranial Nerve VII: Facial Symmetry: Normal Facial Symmetry
Cranial Nerve VIII: Hearing: Unremarkable Hearing to Normal Conversational Volume
Muscle Strength, Overall: Spontaneously Moves
Touch Sensation: Unremarkable
Coordination: Reaches for Objects without Difficulty
Gait & Station: Unable to Assess
Data Reviewed
-
Carotid Ultrasound: Report Reviewed
Labs: Report Reviewed
Reviewed with: Patient
Old Records: Summarized
Past History
Past History
ED Past Medical History: Arrthythmia (Afib), CAD, CVA, HTN, Hypercholesterolemia, NIDDM, Renal failure, Psychiatric (anxiety) and Other (pulmonary sarcoid 1990s, LUE AVF, COVID-19, HD, Cirrhosis, right frontal lobe meningioma)
ED Past Surgical History: Cardiac (Stent 2018), Gynecological (Hysterectomy, BSO) and Other (Left breast lumpectomy 2016, left arm fistula 2020)
Patient has exhibited threatening behavior?: No
PSI?: No
Social History
Tobacco: Former smoker
Alcohol: None
Drug: None
Personal:
Living: with family
Employment: Not employed
Family History
Family History: Other (reviewed and non-contributory)
Medications
-
Medications:
Generic Name Dose Route Start Last Admin
Trade Name Freq PRN Reason Stop Dose Admin
Acetaminophen 650 mg 01/05/24 15:06
Acetaminophen 650 Mg Rectal Suppository RECTAL 02/02/24 15:05
Q4HPRN PRN
WANG, mild pain, or temp >100.4F
Acetaminophen 650 mg 01/05/24 15:06
Acetaminophen 325 Mg Tablet PO 02/02/24 15:05
Q4HPRN PRN
WANG, mild pain, or temp >100.4F
Apixaban 5 mg 01/05/24 20:00 01/06/24 20:04
Apixaban (Eliquis) 5 Mg Tablet PO 02/02/24 19:59 5 mg
BID EFLY Administration
Atorvastatin Calcium 80 mg 01/05/24 18:00 01/06/24 17:06
Atorvastatin (Lipitor) 80 Mg Tablet PO 02/02/24 17:59 80 mg
QPM FELY Administration
Bumetanide 1 mg 01/06/24 08:00 01/06/24 12:26
Bumetanide 1 Mg Tablet PO 02/03/24 07:59 1 mg
DAILY FELY Administration
Carvedilol 6.25 mg 01/05/24 20:00 01/06/24 20:03
Carvedilol 6.25 Mg Tablet PO 02/02/24 19:59 6.25 mg
BID FELY Administration
Dextrose 12.5 grams 01/05/24 15:06
Dextrose 50% (0.5 Grams/Ml) 50 Ml Syringe IV 02/02/24 15:05
[id number] PRN
hypoglycemia
Protocol
Glucagon 1 mg 01/05/24 15:06
Glucagon 1 Mg Vial IM 02/02/24 15:05
PRN PRN
hypoglycemia
Protocol
Hydralazine HCl 10 mg 01/05/24 15:06
Hydralazine 20 Mg/Ml Vial IV 02/02/24 15:05
Q6HPRN PRN
hypertension
Insulin Glargine 32 units/ 0.32 mls @ 0 mls/hr 01/05/24 22:00 01/06/24 23:05
Device SC 02/02/24 21:59 0.32 mls
HS FELY Administration
As Directed
Insulin Aspart 0 units 01/05/24 16:30 01/06/24 17:06
Insulin Aspart Low Resistance 300 Units/3 Ml Pen.Injctr SC 02/02/24 16:29 4 units
AC FELY Administration
Protocol
Insulin Aspart 3 units 01/06/24 11:30 01/06/24 17:05
Insulin Aspart (100 Units/Ml) 3 Ml Flexpen SC 02/03/24 11:29 3 units
AC FELY Administration
Lorazepam 1 mg 01/06/24 08:00 01/06/24 12:25
Lorazepam 1 Mg Tablet PO 02/03/24 07:59 1 mg
DAILY FELY Administration
Miconazole Nitrate 0 applic 01/05/24 16:45
Miconazole Powder Bottle TOPICAL 02/02/24 16:44
BIDPRN PRN
REDNESS
Pantoprazole Sodium 40 mg 01/06/24 08:00 01/06/24 12:25
Pantoprazole 40 Mg Delayed Release Tablet PO 02/03/24 07:59 40 mg
DAILY FELY Administration
Sevelamer Carbonate 800 mg 01/05/24 17:30 01/06/24 17:06
Sevelamer Carbonate (Renvela) 800 Mg Tablet PO 02/02/24 17:29 800 mg
MEALS FELY Administration
Sodium Chloride 0 flush 01/05/24 16:00
Sodium Chloride 0.9% (Flush) Syringe IV 02/02/24 15:59
PER PROTOCOL FELY
[2024-01-07] MEDS: ATIVAN 1 MG PO (09:23)
--- NOTE | 2024-01-07 10:31 | W.PN.NEPH.PH ---
Today's Communication / Plan
-
Add hydralazine 25 mg twice daily
Assessment/Plan
-
Impression:
expressive aphasia r/o TIA
hypertension urgency
ESRD on hemodialysis M, W, F
Paroxysmal atrial fibrillation-Eliquis
CAD status post stents
IDDM
Hyperlipidemia
Sarcoidosis-pulmonary- diagnosed -No Biopsy
Moderate discogenic degenerative disease at C3/C4 and severe discogenic degenerative disease at C4/C5 with loss of intervertebral disc space height and vertebral body endplate osteophytes
History of left lumpectomy 2016
Anxiety
GERD
Hysterectomy with early stage uterine cancer
History of frontal meningioma
Spinal stenosis/arthritis
Obesity per BMI
Left upper extremity AV
Hyperphosphatemia
Plan:
A/w brief episode of aphasia, patient currently at baseline
CVA w/u per neuro, MRI performed today
will schedule HD for tuesday if patient is still here
resumed home meds , add low dose hydralazine for bp elevation (although this will likely cause problems on dialysis as she struggles with ultrafiltration with low blood pressures at times), would hold medication a.m. of dialysis
chronically high BP pre HD and drops after HD
Maintain phosphate binders with meals for hyperphosphatemia
renal diet and FR
-
-
Date of Service: January 07, 2024
CC / HPI / ROS
-
Chief Complaint:
ESRD
History of Present Illness:
ESRD dialysis Tuesday
Blood pressure remains elevated
Review of Systems:
Patient feels well at mental status baseline without complaints
Labs
-
Labs:
WBC 4.5 10^3/uL (4.8-10.8) L 01/07/24 05:09
RBC 3.45 10^6/uL (4.20-5.40) L 01/07/24 05:09
Hgb 10.7 g/dL (12.0-16.0) L 01/07/24 05:09
Hct 31.2 % (37.0-47.0) L 01/07/24 05:09
Plt Count 156 10^3/uL (130-400) 01/07/24 05:09
Sodium 134 mmol/L (135-145) L 01/07/24 05:09
Potassium 4.4 mmol/L (3.5-5.1) 01/07/24 05:09
Chloride 95 mmol/L (98-107) L 01/07/24 05:09
Carbon Dioxide 28 mmol/L (22-30) 01/07/24 05:09
BUN 25 mg/dl (7-17) H 01/07/24 05:09
Creatinine 4.5 mg/dL (0.6-1.0) H* 01/07/24 05:09
eGFR 9.54 01/07/24 05:09
Glucose 146 mg/dl (70-99) H 01/07/24 05:09
Calcium 9.0 mg/dl (8.4-10.2) 01/07/24 05:09
Phosphorus 3.9 mg/dl (2.5-4.5) 01/07/24 05:09
Physical Exam
-
Vital Signs:
Vital Signs
Temp Pulse Resp BP Pulse Ox
98.0 F 56 16 174/76 98
01/07/24 08:23 01/07/24 09:22 01/07/24 08:23 01/07/24 09:22 01/07/24 08:23
Cardiovascular:: Regular rate and rhythm
Respiratory:: Bilateral: CTA
Lung Excursion:: Normal
Abdomen:: Nontender and Soft
Extremity Edema:: None: Bilateral:
Romero Catheter: No
[2024-01-07] MEDS: APRESOLINE 25 MG PO (11:28)
[2024-01-07 11:37] VITALS: BP 137/49
[2024-01-07 11:38] VITALS: BP 137/49; BP 168/65; BP 171/63; PULSE 56; PULSE 61; PULSE 66
[2024-01-07 11:52] LABS: Glucose - Point of Care 237 mg/dl (70-99)
[2024-01-07] MEDS: NOVOLOG FLEXPEN-LOW RESISTANCE 2 UNITS SC (13:03)
--- NOTE | 2024-01-07 16:11 | W.DCSUMMARY ---
Discharge Summary
Discharge Data
Date of Admission: 01/05/24
Date of Discharge: 01/07/24
-
Pending Results: No
Hospital Course
78F ESRD MWF, HTN, HLD, DM, afib p/w episode expressive aphasia and slurred speech which lasted for 30-40 min. Denied any numbness, tingling. Patient had chronic blurry vision. Denied any weakness to lower/upper extremities, headache, dizziness,
syncopal episode, any chest pain, SOB, abd pain, nausea, vomiting, diarrhea, dysuria, or hematuria. CT head noted no acute abn's. Expressive aphasia r/o TIA, symptom since resolved, head CT with No acute intracranial abnormality noted. Mild
periventricular small vessel ischemic disease. Stable, right frontal meningioma. Brain MRI results appreciated no acute abn's/changes. A1c 7.9. Lipid profile appreciated hyperlipidemia LDL not at goal <70 for stroke risk prevention. Statin
continued. On Eliquis, Neurology consult appreciated empiric thiamine supplementation provided since completed, orthostatic vitals (neg so far), outpatient tilt table and EEG recommended (EEG was offered inpt however patient refused in favor of
outpt eval). Patient refused evaluations ST/PT/OT. HTN, hypertensive urgency, hydralazine prn, continued home Bumex Coreg- 25 mg Hydralazine BID started as per Nephro, to be held AM of dialysis sessions. Medically stable, patient was discharged
home with outpatient follow up recommendations.
Discharge Plan
-
Patient Disposition: Home (Routine Discharge)
Discharge Diagnosis/Procedures: expressive aphasia possible Transient Ischemic Attack vs Metabolic Encephalopathy Unclear etiology, resolved
Hypertension, Hypertensive Urgency
End Stage Renal Disease on Hemodialysis
Paroxysmal atrial fibrillation
Coronary Artery Disease
Diabetes
Hyperlipidemia
Obesity
Condition: Fair
Diet: Low Cholesterol and Diabetic, Carb Controlled
Activity: As tolerated
Driving Restrictions: As prior to admission
Bathing Restrictions: None
Others Tests: Please follow up with Neurology and/or primary care provider for outpatient EEG and tilt table testing.
Activity Restrictions/Additional Instructions:
Please follow up with your primary care provider in 1 week of discharge and Neurology in 2-4 weeks of discharge.
Hydralazine started for better blood pressure control. Hold morning dose during dialysis days.
Vitamin B12 supplementation prescribed for relatively low levels.
Please take medications as prescribed/recommended and follow up with primary care provider and/or other healthcare provider involved in your care for refills and/or further adjustment to your medication regimen as necessary.
Referrals:
Marie Balbuena CRNP [Family Provider] - in one week
Daniel Barney MD [Active] - in two to four weeks
Prescriptions:
New
hydralazine 25 mg Tablet
25 mg PO BID Qty: 60 0RF
Rx Instructions:
Hold Morning Dose on Dialysis Days
cyanocobalamin (vitamin B-12) 1,000 mcg Tablet
1,000 mcg PO DAILY Qty: 30 0RF
Continued
pantoprazole 40 MG tablet,delayed release (DR/EC)
40 mg PO DAILY
bumetanide 1 mg Tablet
1 mg PO DAILY
sevelamer HCl 800 mg Tablet
800 mg PO MEALS
Eliquis 5 mg Tablet
5 mg PO BID Qty: 60 0RF
carvedilol 6.25 mg tablet
6.25 mg PO BID
cholecalciferol (vitamin D3) [Vitamin D3] 50 mcg (2,000 unit) Tablet
50 mcg PO DAILY
atorvastatin 80 mg tablet
80 mg PO QPM
diphenoxylate-atropine [Lomotil] 2.5-0.025 mg Tablet
1 tab PO QIDPRN PRN (Reason: diarrhea)
Patient Comments:
pdmp worm picker on 01/04/24 #30
insulin detemir U-100 100 unit/mL (3 mL) Insulin Pen
32 unit SC HS
lorazepam 1 MG tablet
1 mg PO DAILY
Patient Comments:
last filled 12/09/23, 90 tabs for 90 days from [facility]
Discharge Orders:
Discharge Patient (As Directed); Ordered 01/07/24
Ordered By: Sidney Olguin
Discharge Date and Time
Discharge Date/Time: 01/07/24 17:30
Print Language: [id number]
[2024-01-07] MEDS: APRESOLINE 10 MG IV (16:15)
[2024-01-07] MEDS: VITAMIN B-12 1000 MCG PO (16:15)
[2024-01-07] MEDS: FLUAD (65 yr+) 2024-2025 FORMULA 0.5 ML IM (16:26)
[2024-01-07 16:41] VITALS: BP 182/67
== END 2024-01-07 17:30 | disposition home or self-care (01) ==
LOC: 2 NORTH 13:26
PROVIDERS: Registered Nurse; ADMITTING PHYSICIAN Hospitalist; ATTENDING PHYSICIAN Internal Medicine; CONSULT PHYSICIAN Internal Medicine; CONSULT PHYSICIAN Psychiatry & Neurology Neurology; EMERGENCY PHYSICIAN Emergency Medicine; FAMILY PHYSICIAN Nurse Practitioner Primary Care
DX: R47.01 Aphasia (principal); I16.0 Hypertensive urgency; I48.0 Paroxysmal atrial fibrillation; E78.00 Pure hypercholesterolemia, unspecified; I12.0 Hypertensive chronic kidney disease with stage 5 chronic kidney disease or end stage renal disease; F41.9 Anxiety disorder, unspecified; I25.10 Atherosclerotic heart disease of native coronary artery without angina pectoris; E11.22 Type 2 diabetes mellitus with diabetic chronic kidney disease; E11.65 Type 2 diabetes mellitus with hyperglycemia; H53.8 Other visual disturbances; D32.0 Benign neoplasm of cerebral meninges; I67.82 Cerebral ischemia; D86.9 Sarcoidosis, unspecified; M25.78 Osteophyte, vertebrae; R29.810 Facial weakness; M50.31 Other cervical disc degeneration, high cervical region; M19.90 Unspecified osteoarthritis, unspecified site; E83.39 Other disorders of phosphorus metabolism; N18.6 End stage renal disease; G31.9 Degenerative disease of nervous system, unspecified; F44.5 Conversion disorder with seizures or convulsions; R29.6 Repeated falls; M50.321 Other cervical disc degeneration at C4-C5 level; K21.9 Gastro-esophageal reflux disease without esophagitis; E66.9 Obesity, unspecified; Z86.73 Personal history of transient ischemic attack (TIA), and cerebral infarction without residual deficits; Z87.891 Personal history of nicotine dependence; Z86.16 Personal history of COVID-19; Z79.01 Long term (current) use of anticoagulants; Z95.5 Presence of coronary angioplasty implant and graft; Z91.041 Radiographic dye allergy status; Z79.4 Long term (current) use of insulin; Z68.36 Body mass index [BMI] 36.0-36.9, adult; Z23 Encounter for immunization; Z99.2 Dependence on renal dialysis
CPT/HCPCS: 70450; 70551; 80048; 80061; 81003; 81015; 82607; 82746; 82962; 83036; 83735; 84100; 84443; 85025; 85027; 85610; 85652; 85730; 87070; 87086; 90662; 93005; 93880; 99285; G0008; G0378; P9047

== ENCOUNTER → 2024-03-13 09:37 | Outpatient (REF) | payer MEDICARE, OTHER, SELFPAY | LOC: RAD 09:37 | PROVIDERS: ATTENDING PHYSICIAN Surgery Vascular Surgery | DX: I77.0 Arteriovenous fistula, acquired (principal); Z99.2 Dependence on renal dialysis; I77.89 Other specified disorders of arteries and arterioles | CPT/HCPCS: 93990 ==